=== PATIENT | male | born 1935 | race Caucasian/White ===

== ENCOUNTER → 2016-07-06 | Outpatient (CLI) | payer BC ==
[2016-06-30 13:08] LABS: BLOOD UREA NITROGEN 14 mg/dl (7-18); BUN/CREATININE RATIO 15.1 (10-20); CREATININE 0.96 mg/dl (0.60-1.40)
[~2016-07-06] MED LIST: ADVIN25050 INH; ADVIN50/60 INH; ALBU1AER9 INH; ASCA500 PO; ASPEC325 PO; ASPI81TA28 PO; CHOL1000 PO; CHOL100010 PO; DONE5TAB9 PO; FINA5TAB PO; FINA5TAB4 PO; LANS15CA6 PO; LANS30CA12 PO; LORA-554 PO; METH500T37 PO; MONT1TAB3 PO; MULT-190 PO; MULT-506 PO; MULT-610 PO; NAPR1TAB9 PO; OPTIRAY 320 IV PRN; RANI300T2 PO; SNG10 PO; TAMS0.4C38 PO; TAMS0.4C59 PO; VNTHFA/IN INH
--- NOTE | 2016-07-06 13:29 | DIAGNOSTIC IMAGING REPORT ---
CT UROGRAM CLINICAL HISTORY: Hematuria. COMPARISON STUDY: Abdominal CT dated 03/24/2009. TECHNIQUE: Before and following the IV administration of 119 cc of Optiray 320, CT urogram of the abdomen and pelvis is performed from the lung bases to the proximal femora. Images are reviewed in the axial, sagittal, and coronal planes. IV contrast was administered without complication. CT DOSE: 1654.26 mGycm FINDINGS: Lung bases: The heart is normal in size and without pericardial effusion. There is linear scarring versus atelectasis present at both lung bases. Scattered calcified granulomas are observed. No airspace consolidation or pleural effusion is identified. There is a small to moderate hiatal hernia. Liver: The contrast-enhanced liver is normal in size, contour, and attenuation. There is no intrahepatic biliary ductal dilatation. The hepatic veins and portal veins are patent. Scattered subcentimeter hepatic hypodensities likely represent cysts but are too small for definitive characterization. These are similar to the 2009 examination. Gallbladder: Surgically absent noting clips in the gallbladder fossa. Spleen: Normal in size and attenuation. Pancreas: Unremarkable. Adrenal glands: Unremarkable. Kidneys and ureters: The contrast enhanced kidneys demonstrate mild cortical atrophy and are without hydronephrosis. There are are no renal calculi identified on the unenhanced images. The kidneys enhance and excrete symmetrically. There are 2 cysts identified in the lower pole the right kidney. These measure up to 2.1 cm. Both contain faint internal calcifications. These have been present dating back to 2008. Additional subcentimeter cortical hypodensities are seen in both kidneys. These also likely represent cysts but are too small for definitive characterization. There is no enhancing renal cortical mass lesion identified. There is no evidence of urothelial lesion within the renal pelvis bilaterally or along the course of either ureter. There is a circumaortic left renal vein. Abdominal vasculature: The abdominal aorta is normal in course and caliber noting moderate atherosclerotic calcification. Bowel: The small bowel and colon are normal in course and caliber. There is advanced sigmoid diverticulosis without CT evidence of acute diverticulitis. Moderate colonic fecal retention is observed. The appendix is well-visualized and normal. Peritoneum: There is no intraperitoneal free air or abdominal ascites. Lymphadenopathy: None. Pelvic viscera: The prostate gland is enlarged and heterogeneous, containing coarse calcifications. The prostate gland measures up to 5.8 cm in transverse diameter. There is median lobe hypertrophy. The bladder is normal as visualized. Skeletal structures: The skeletal structures are osteopenic. There is mild lumbosacral spondylosis, greatest at L5-S1. No lytic or blastic lesions are seen. IMPRESSION: 1. No renal calculi are identified. 2. There is no enhancing renal cortical mass. No evidence of urothelial lesion is seen within the renal pelvis bilaterally or lung the course of the ureters. 3. The prostate gland is markedly enlarged and heterogeneous, and demonstrates median lobe hypertrophy. Correlation with serum PSA levels is recommended. 4. The bladder is normal as visualized. 5. Advanced sigmoid diverticulosis without CT evidence of acute diverticulitis. 6. Additional changes as above. Electronically signed by: George Fernandez M.D. 07/06/2016 1:27 PM Dictated Date/Time: 07/06/2016 1:19 PM
== END | disposition home or self-care (01) ==
LOC: C.CTS 12:43
PROVIDERS: ATTEND Nurse Practitioner Adult Health
DX: R31.9 Hematuria, unspecified (principal)

== ENCOUNTER → 2016-11-23 | Outpatient (CLI) | payer BC ==
[~2016-11-23] MED LIST changes: -OPTIRAY 320 IV PRN
[2016-11-23 09:30] LABS: BASO % 0.7 %; BASO ABS # 0.04 K/uL (0-0.2); COMPLETE YES; EOS % 11.4 %; HEMATOCRIT 43.8 % (42-52); IG% 0.2 %; LYMPH % 26.9 %; LYMPH ABS # 1.49 K/uL (1.2-3.4); MEAN CELL VOLUME 88.1 fL (80-100); MEAN CORPUSCULAR HEMOGLOBIN 29.2 pg (25-34); MEAN CORPUSCULAR HGB CONC 33.1 g/dl (32-36); MEAN PLATELET VOLUME 9.9 fL (7.4-10.4); MONO % 7.4 %; NEUT % 53.4 %; PLATELET COUNT 170 K/uL (130-400); RED BLOOD COUNT 4.97 M/uL (4.7-6.1); WHITE BLOOD COUNT 5.53 K/uL (4.8-10.8)
[2016-11-23 09:38] LABS: ALT/SGPT 27 U/L (12-78); BLOOD UREA NITROGEN 22 mg/dl (7-18); BUN/CREATININE RATIO 22.3 (10-20); CARBON DIOXIDE 31 mmol/L (21-32); CHLORIDE 105 mmol/L (98-107); CHOLESTEROL 145 mg/dl (0-200); GLUCOSE 102 mg/dl (70-99); POTASSIUM 4.2 mmol/L (3.5-5.1); SODIUM 141 mmol/L (136-145); TRIGLYCERIDES 47 mg/dl (0-150); VERY LOW DENSITY LIPOPROT CALC 9 mg/dl
[2016-11-23 09:41] LABS: ALKALINE PHOSPHATASE 44 U/L (45-117); AST/SGOT 22 U/L (15-37); CHOLESTEROL/HDL RATIO 2.7; HDL CHOLESTEROL 53 mg/dl; LDL CHOLESTEROL CALCULATED 83 mg/dl
[2016-11-23 09:45] LABS: CALCIUM 8.8 mg/dl (8.5-10.1)
[2016-11-23 09:50] LABS: ESTIMATED AVERAGE GLUCOSE 120 mg/dl; HA1C FLAG Normal (Normal)
--- NOTE | 2016-11-29 10:13 | CODING QUERY MEDICAL NECESSITY ---
SUPPORTING DIAGNOSIS NEEDED Dr. Rinaldi, A supporting diagnosis is required for the test/procedure performed on this patient in order for us to be reimbursed by the patient's insurance. Please provide a supporting diagnosis for the following test/procedure listed below next to the test name along with your signature. *If there is no additional diagnosis for this patient that would support the following test/procedure please document that below next to the test/procedure. Test(s)/Procedure(s) that require a supporting diagnosis: * [id number] GLYCATED HEMOGLOBIN DIAGNOSIS: DATE OF SERVICE: 11/23/16 Provider Signature: Date: Thank you Hardik Campbell [facility] Information Management Once completed, please kindly fax back to [phone] For questions please call [phone]
== END | disposition home or self-care (01) ==
LOC: C.LAB1850 07:30
PROVIDERS: ATTEND Internal Medicine
DX: E55.9 Vitamin D deficiency, unspecified (principal); R31.9 Hematuria, unspecified; R73.03 Prediabetes; Z13.1 Encounter for screening for diabetes mellitus

== ENCOUNTER 2016-12-07 16:47 | Inpatient (IN) | payer BC, OTHER ==
[~2016-12-07] VITALS: Ht 175.3 cm; Wt 83.0 kg
[~2016-12-07 16:47] MED LIST changes: -ADVIN25050 INH; -ALBU1AER9 INH; -ASPEC325 PO; -CHOL100010 PO; -DONE5TAB9 PO; -FINA5TAB PO; -LANS15CA6 PO; -METH500T37 PO; -MULT-506 PO; -SNG10 PO; -TAMS0.4C59 PO
[2016-12-07 18:04] LABS: BASO % 0.3 %; BASO ABS # 0.01 K/uL (0-0.2); COMPLETE YES; EOS % 0.5 %; HEMATOCRIT 37.3 % (42-52); IG% 0.3 %; LYMPH ABS # 0.62 K/uL (1.2-3.4); MEAN CELL VOLUME 85.9 fL (80-100); MEAN CORPUSCULAR HEMOGLOBIN 29.7 pg (25-34); MEAN CORPUSCULAR HGB CONC 34.6 g/dl (32-36); MEAN PLATELET VOLUME 8.7 fL (7.4-10.4); MONO % 5.5 %; NEUT % 76.4 %; PLATELET COUNT 105 K/uL (130-400); RED BLOOD COUNT 4.34 M/uL (4.7-6.1); WHITE BLOOD COUNT 3.65 K/uL (4.8-10.8)
[2016-12-07 18:19] LABS: INR 1.1 (0.9-1.1); PROTHROMBIN TIME (PATIENT) 11.3 SECONDS (9.0-12.0)
[2016-12-07 18:24] LABS: ALT/SGPT 29 U/L (12-78); AST/SGOT 29 U/L (15-37); BLOOD UREA NITROGEN 24 mg/dl (7-18); BUN/CREATININE RATIO 25.5 (10-20); CALCIUM 8.4 mg/dl (8.5-10.1); CARBON DIOXIDE 27 mmol/L (21-32); CHLORIDE 101 mmol/L (98-107); CREATININE 0.93 mg/dl (0.60-1.40); GLUCOSE 112 mg/dl (70-99); POTASSIUM 3.9 mmol/L (3.5-5.1); SODIUM 136 mmol/L (136-145)
[2016-12-07 18:27] LABS: ALB/GLOB RATIO 1.1 (0.9-2); ALKALINE PHOSPHATASE 44 U/L (45-117)
--- NOTE | 2016-12-07 18:42 | DIAGNOSTIC IMAGING REPORT ---
CT HEAD WITHOUT CONTRAST (CT) CLINICAL HISTORY: Acute change in mental status. COMPARISON STUDY: 08/02/2015 TECHNIQUE: Axial CT of the brain is performed from the vertex to the skull base. IV contrast was not administered for this examination. CT DOSE: 537.48 mGy.cm FINDINGS: No intra or extra-axial mass lesions are visualized. There is no CT evidence of acute cortical infarction. There is no evidence of midline shift. There is no acute hemorrhage. No calvarial fractures are visualized. There are patchy white matter hypodensities likely on a small vessel basis. There is no evidence of pathologic ventricular dilatation. There is no evidence of acute sinusitis IMPRESSION: No acute intracranial findings Electronically signed by: Jack Shah M.D. 12/07/2016 6:40 PM Dictated Date/Time: 12/07/2016 6:40 PM
--- NOTE | 2016-12-07 19:58 | EMERGENCY ROOM VISIT NOTE ---
History Report prepared by Leoncio: Carlos A Monique Under the Supervision of: Dr. Brenda Miner D.O. First contact with patient: 17:10 Chief Complaint: WEAKNESS Stated Complaint: WEAK - NOT ABLE TO RELATE - SENT BY DOCTOR Nursing Triage Summary: Pt with . Pt was here on for rectal bleeding, was not anemic told to stop aspirin and sent home. Pt reports bleeding has persisted. Pt was seen by Dr today and physician felt pt was unable to follow conversation and relate his current condition. Sent to ER. Pt is able to answer all orientation questions appropriately at this time. History of Present Illness The patient is a 81 year old male who presents to the Emergency Room with complaints of persistent rectal bleeding beginning last week. He was seen by his PCP today for his symptoms, and was referred to the ED after also being noted to have an altered mental status. Per , the patient "has not been coherent", and has been angering very easily. She states that he has been struggling to find the words that he is trying to say. She states that his symptoms were present yesterday, but much worse today. The patient states "I don 't feel my normal self", and has felt extremely tired. He was seen in the ED last week for rectal bleeding, was found to be anemic and was discharged home. The patient states that his rectal bleeding has been "bright red", with "pieces of tissue". He states that the bleeding covered the entire inside of the toilet bowel. He states that he had an episode with large amount of rectal bleeding yesterday with a large amount of "tissue". The patient states that he noticed that his urine appeared "pink" today. He states that the stool in his bowel movement yesterday appeared dark in color. The patient's notes that the patient had a poly by colonoscopy. He states that the patient has appeared very pale recently. The patient denies any abdominal pain, fevers, headache, chest pain, or chills. He states that he has felt "faint" intermittently for the past few days. He notes that he had similar symptom problems with bleeding occur several months ago with urination. Source of History: patient, spouse/significant other () Onset: Last week Position: other (rectum) Quality: other (bleeding) Timing: other (persistent) Associated Symptoms: + fatigue, No fevers, No chills, No headache, No chest pain, No abdominal pain Note: The patient also complains of an altered mental status. Review of Systems See HPI for pertinent positives & negatives. A total of 10 systems reviewed and were otherwise negative. Past Medical & Surgical Medical Problems: (1) Benign prostate hyperplasia (2) Diverticulosis (3) TIA (transient ischemic attack) Surgical Problems: (1) Hx of cholecystectomy Family History Cancer Heart disease Social History Smoking Status: Never Smoker Marital Status: Housing Status: lives with family Occupation Status: employed Current/Historical Medications Scheduled Ascorbic Acid (Vitamin C), 500 MG PO DAILY Cholecalciferol (Vitamin D3), 1,000 UNITS PO DAILY Finasteride (Proscar), 5 MG PO DAILY Fluticasone Prop/Salmeterol (Advair Diskus 500/50 60 Dose), 1 PUFF INH BID Lansoprazole (Prevacid), 30 MG PO DAILY Loratadine (Allergy Relief), 10 MG PO HS Montelukast Sodium (Singulair), 10 MG PO DAILY Multiple Vitamins W/ Minerals (Centrum Adults), 1 TAB PO DAILY Ocuvite Preservision (Ocuvite Preservision), 2 TAB PO QAM Ranitidine (Zantac), 300 MG PO HS Tamsulosin Hcl (Flomax), 0.4 MG PO DAILY Scheduled PRN Albuterol Hfa (Ventolin Hfa), 2-4 PUFFS INH Q6H PRN for SOB/Wheezing Allergies Coded Allergies: No Known Allergies (Verified , 12/07/16) Physical Exam Vital Signs Date Time Temp Pulse Resp B/P (MAP) Pulse Ox O2 Delivery O2 Flow Rate FiO2 12/07/16 18:39 71 18 127/65 95 Room Air 12/07/16 18:00 75 16 121/66 94 Room Air 12/07/16 17:10 79 12/07/16 17:01 94 Room Air 12/07/16 16:50 37.5 63 16 118/70 98 Room Air Physical Exam GENERAL: alert, well appearing, well nourished, no distress, non-toxic EYE EXAM: normal conjunctiva, PERRL and EOM's grossly intact OROPHARYNX: no exudate, no erythema, lips, buccal mucosa, and tongue normal and mucous membranes are moist NECK: supple, no nuchal rigidity, no adenopathy, non-tender LUNGS: Clear to auscultation. Normal chest wall mechanics HEART: no murmurs, S1 normal and S2 normal ABDOMEN: abdomen soft, non-tender, normo-active bowel sounds, no masses, no rebound or guarding. BACK: Back is symmetrical on inspection and there is no deformity, no midline tenderness, no CVA tenderness. SKIN: no rashes and no bruising UPPER EXTREMITIES: upper extremities are grossly normal. LOWER EXTREMITIES: No pitting edema. NEURO EXAM: Normal sensorium, cranial nerves II-XII grossly intact, normal speech, no gross weakness of arms, no gross weakness of legs. Poor memory. Difficulty finding words. Difficulty answering questions. Medical Decision & Procedures ER Provider Diagnostic Interpretation: CT:Per my review, radiologist interpretation. CT HEAD WITHOUT CONTRAST (CT) FINDINGS: No intra or extra-axial mass lesions are visualized. There is no CT evidence of acute cortical infarction. There is no evidence of midline shift. There is no acute hemorrhage. No calvarial fractures are visualized. There are patchy white matter hypodensities likely on a small vessel basis. There is no evidence of pathologic ventricular dilatation. There is no evidence of acute sinusitis IMPRESSION: No acute intracranial findings Electronically signed by: Jack Shah M.D. Laboratory Results Test 12/07/16 17:50 Peripheral Blood Smear Path Consult Prothrombin Time 11.3 SECONDS (9.0-12.0) Prothromb Time International Ratio 1.1 (0.9-1.1) Estimated Average Glucose 117 mg/dl Hemoglobin A1c 5.7 % (4.5-5.6) Lactic Acid Level 0.8 mmol/L (0.4-2.0) Total Bilirubin 0.8 mg/dl (0.2-1) Aspartate Amino Transf (AST/SGOT) 29 U/L (15-37) Alanine Aminotransferase (ALT/SGPT) 29 U/L (12-78) Alkaline Phosphatase 44 U/L (45-117) Total Protein 6.6 gm/dl (6.4-8.2) Albumin 3.4 gm/dl (3.4-5.0) Globulin 3.2 gm/dl (2.5-4.0) Albumin/Globulin Ratio 1.1 (0.9-2) Lipase 188 U/L (73-393) Laboratory results per my review. ECG Indication: altered mental status Rate (beats per minute): 73 Rhythm: normal sinus Findings: 1st degree AV block, no acute ischemic change, other (Normal axis. Normal intervals. ) ED Course 1711: The patient was evaluated in room C1B. A complete history and physical exam was performed. 1925: I reassessed the patient. He has normal strength in all four extremities. He has no ataxia. No pronator drift. Difficulty on the right with finger to nose noted. 1999: Upon reevaluation, the patient is resting comfortably. I discussed the findings and the treatment plan with the patient. He expresses agreement and understanding. I spoke with Dr. Rob of the [facility] Hospitalist Service. The patient will be evaluated for further management. Medical Decision Differential diagnosis: Etiologies such as metabolic, infection, hypoglycemia, electrolyte abnormalities , cardiac sources, intracerebral event, toxicologic, neurologic, as well as others were entertained. Pt well appearing with stable VS and no acute change in H/H despite recent Gi bleed. and PCP concerned about slightly altered mental status and difficulty with word findings. No focal neuro deficits, mild difficulty with right finger to nose testing. No dysarthria. NIHSS <4 and sx >24 hrs, pt not a tPA candidate. Concern for possible cva/tia given that pt was advised to DC ASA in light of new bleeding. Pt elderly, hx of elevated lipids also - risk factors for CVA. No acute change on CT head. Consults Time Called: 1929 Consulting Physician: Dr. Rob -[facility] Returned Call: 1955 I reviewed the patient's case with Dr. Rob. [facility] will evaluate the patient for further management. Impression Primary Impression: Altered mental status Additional Impressions: Anemia Rectal bleeding Scribe Attestation The scribe's documentation has been prepared under my direction and personally reviewed by me in its entirety. I confirm that the note above accurately reflects all work, treatment, procedures, and medical decision making performed by me. Departure Information Dispostion Being Evaluated By Hospitalist Referrals Gregorio Rinaldi M.D. (PCP) Patient Instructions My [facility] Problem Qualifiers Primary Impression: Altered mental status Altered mental status type: unspecified Qualified Codes: R41.82 - Altered mental status, unspecified Additional Impressions: Anemia Anemia type: unspecified type Qualified Codes: D64.9 - Anemia, unspecified
[2016-12-07] MEDS ORDERED: POLYETHYLENE (MIRALAX) 17 GM PACK PO PRN (21:15)
[2016-12-07] MEDS ORDERED: ACETAMINOPHEN 325 MG TAB PO PRN (21:15)
[2016-12-07] MEDS ORDERED: PHARMACIST DISCHARGE MED REC CONSULT PRN (21:15)
[2016-12-07] MEDS ORDERED: ONDANSETRON INJ 2 MG/ML 2 ML VIAL IV PRN (21:15)
--- NOTE | 2016-12-07 21:58 | History and Physical ---
History & Physical Date & Time of Service: Dec 07, 2016 at 21:58 Chief Complaint: Weak - Not Able To Relate - Sent By Doctor Primary Care Physician: Gregorio Rinaldi M.D. History of Present Illness Source: patient, family 81-year-old male with a past medical history of BPH, diabetic close presented to the ER with complaints of rectal bleeding and " not been coherent". Per patient and his family he was seen in the ER last week for rectal bleeding and he continued to have rectal bleeding yesterday and this morning. He noticed blood in the toilet bowl as well as on the tissue. Denies any rectal pain or abdominal pain, nausea or vomiting, fevers or chills. He complains of feeling very tired and fatigued. He stated that he doesn't feel himself and had noticed that his gait had been more shuffling. His also stated that he has trouble finding words and " has been slow in retrieving information" . She thinks this is unusual for him. Denies any numbness or tingling, motor weakness, blurry vision, slurring of speech. Past Medical/Surgical History Medical Problems: (1) Diverticulosis Status: Chronic Family History Cancer Heart disease Social History Smoking Status: Never Smoker Marital Status: Occupational Status: employed Immunizations History of Influenza Vaccine: No Influenza Vaccine Date: Mar 17, 2009 History of Tetanus Vaccine?: Yes History of Pneumococcal: Yes History of Hepatitis B Vaccine: No Multi-Drug Resistant Organisms History of MDRO: No Allergies Coded Allergies: No Known Allergies (Verified , 12/07/16) Home Medications Scheduled Ascorbic Acid (Vitamin C), 500 MG PO DAILY Cholecalciferol (Vitamin D3), 1,000 UNITS PO DAILY Donepezil HCl (Aricept), 1 TAB PO DAILY Finasteride (Proscar), 5 MG PO DAILY Fluticasone Prop/Salmeterol (Advair Diskus 500/50 60 Dose), 1 PUFF INH BID Lansoprazole (Prevacid), 30 MG PO DAILY Loratadine (Allergy Relief), 10 MG PO HS Montelukast Sodium (Singulair), 10 MG PO DAILY Multiple Vitamins W/ Minerals (Centrum Adults), 1 TAB PO DAILY Ocuvite Preservision (Ocuvite Preservision), 2 TAB PO QAM Ranitidine (Zantac), 300 MG PO HS Tamsulosin Hcl (Flomax), 0.4 MG PO DAILY Scheduled PRN Albuterol Hfa (Ventolin Hfa), 2-4 PUFFS INH Q6H PRN for SOB/Wheezing Review of Systems Constitutional: No fever, No chills Eyes: No worsening of vision ENT: + hearing loss Respiratory: No cough, No sputum, No shortness of breath Cardiovascular: No chest pain Abdomen: No pain, No nausea, No vomiting Musculoskeletal: No joint pain Genitourinary - Male: No hematuria, No dysuria Neurologic: + memory loss, + balance problems (shuffling gait), No paralysis, No numbness/tingling Psychiatric: No depression symptoms Endocrine: No fatigue Hematologic / Lymphatic: No abnormal bleeding/bruising Physical Exam Vital Signs Date Time Temp Pulse Resp B/P (MAP) Pulse Ox O2 Delivery O2 Flow Rate FiO2 12/07/16 21:17 69 18 106/59 96 Room Air 12/07/16 21:15 68 12/07/16 18:39 71 18 127/65 95 Room Air 12/07/16 18:00 75 16 121/66 94 Room Air 12/07/16 17:10 79 12/07/16 17:01 94 Room Air 12/07/16 16:50 37.5 63 16 118/70 98 Room Air General Appearance: WD/WN, no apparent distress Head: normocephalic Eyes: normal inspection ENT: normal ENT inspection, hearing grossly normal Neck: supple Respiratory/Chest: chest non-tender, lungs clear, normal breath sounds, no respiratory distress, no accessory muscle use Cardiovascular: regular rate, rhythm Abdomen/GI: normal bowel sounds, non tender, soft Back: normal inspection Extremities/Musculoskelatal: normal inspection, no pedal edema Neurologic/Psych: alert, normal mood/affect, oriented x 3 Skin: normal color Diagnostics Laboratory Results Results Past 24 Hours Test 12/07/16 17:50 Range/Units White Blood Count 3.65 4.8-10.8 K/uL Red Blood Count 4.34 4.7-6.1 M/uL Hemoglobin 12.9 14.0-18.0 g/dL Hematocrit 37.3 42-52 % Mean Corpuscular Volume 85.9 80-100 fL Mean Corpuscular Hemoglobin 29.7 25-34 pg Mean Corpuscular Hemoglobin Concent 34.6 32-36 g/dl Platelet Count 105 130-400 K/uL Mean Platelet Volume 8.7 7.4-10.4 fL Neutrophils (%) (Auto) 76.4 % Lymphocytes (%) (Auto) 17.0 % Monocytes (%) (Auto) 5.5 % Eosinophils (%) (Auto) 0.5 % Basophils (%) (Auto) 0.3 % Neutrophils # (Auto) 2.79 1.4-6.5 K/uL Lymphocytes # (Auto) 0.62 1.2-3.4 K/uL Monocytes # (Auto) 0.20 0.11-0.59 K/uL Eosinophils # (Auto) 0.02 0-0.5 K/uL Basophils # (Auto) 0.01 0-0.2 K/uL RDW Standard Deviation 42.4 36.4-46.3 fL RDW Coefficient of Variation 13.5 11.5-14.5 % Immature Granulocyte % (Auto) 0.3 % Immature Granulocyte # (Auto) 0.01 0.00-0.02 K/uL Prothrombin Time 11.3 9.0-12.0 SECONDS Prothromb Time International Ratio 1.1 0.9-1.1 Sodium Level 136 136-145 mmol/L Potassium Level 3.9 3.5-5.1 mmol/L Chloride Level 101 98-107 mmol/L Carbon Dioxide Level 27 21-32 mmol/L Anion Gap 8.0 3-11 mmol/L Blood Urea Nitrogen 24 7-18 mg/dl Creatinine 0.93 0.60-1.40 mg/dl Estimated GFR () 87.7 Estimated GFR (Non- 75.7 BUN/Creatinine Ratio 25.5 10-20 Random Glucose 112 70-99 mg/dl Lactic Acid Level 0.8 0.4-2.0 mmol/L Calcium Level 8.4 8.5-10.1 mg/dl Total Bilirubin 0.8 0.2-1 mg/dl Aspartate Amino Transf (AST/SGOT) 29 15-37 U/L Alanine Aminotransferase (ALT/SGPT) 29 12-78 U/L Alkaline Phosphatase 44 45-117 U/L Total Protein 6.6 6.4-8.2 gm/dl Albumin 3.4 3.4-5.0 gm/dl Globulin 3.2 2.5-4.0 gm/dl Albumin/Globulin Ratio 1.1 0.9-2 Lipase 188 73-393 U/L Diagnostic Radiology CT HEAD WITHOUT CONTRAST (CT) CLINICAL HISTORY: Acute change in mental status. COMPARISON STUDY: 08/02/2015 TECHNIQUE: Axial CT of the brain is performed from the vertex to the skull base. IV contrast was not administered for this examination. CT DOSE: 537.48 mGy.cm FINDINGS: No intra or extra-axial mass lesions are visualized. There is no CT evidence of acute cortical infarction. There is no evidence of midline shift. There is no acute hemorrhage. No calvarial fractures are visualized. There are patchy white matter hypodensities likely on a small vessel basis. There is no evidence of pathologic ventricular dilatation. There is no evidence of acute sinusitis IMPRESSION: No acute intracranial findings Electronically signed by: Jack Shah M.D. 12/07/2016 6:40 PM Dictated Date/Time: 12/07/2016 6:40 PM EKG Sinus rhythm with 1st degree A-V block Otherwise normal ECG When compared with ECG of 23-JAN-2010 10:07, HI interval has increased Vent. rate has increased BY 26 BPM Confirmed by JANET OAKLEY ([id number]) on 12/07/2016 7:01:01 PM Impression Assessment and Plan 81-year-old male with a past medical history of BPH, diabetic close presented to the ER with complaints of rectal bleeding and " not been coherent". TIA vs Parkinson's disease vs dementia Head CT: Negative for any acute bleeding - MRI brain, MRA head, MRA neck ordered - Echo ordered - Consult neurology - PT/OT - Speech consult - Aspirin had not been started considering active rectal bleeding Rectal bleeding: Has been going on for about a week - Hemoglobin at 12.9 - Monitor her H&H - Consult GI Thrombocytopenia: - Platelets at 105 - baseline at 150s h/o Asthma: - continue inhalers BPH: - continue home Meds DVT prophylaxis: - SCDs DNR Disposition : admitted to [facility] Level of Care Telemetry Resuscitation Status DO NOT RESUSCITATE VTE Prophylaxis VTE Risk Assessment Done? Y/N: Yes Risk Level: Moderate Given or contraindicated: Unfractionated heparin SQ Resident Tracking Resident Involvement: Resident Care Provided Care Provided: Adult [facility] Medicine Assessment and Plan Attending Addendum: I have physically seen and examined this patient, have directed their medical care, have supervised the medical residents activities, and agree with the H&P as noted above, with the following changes: NONE
[2016-12-07] MEDS: SODIUM CHLORIDE 0.9% 1000ML 1,000 ML IV SCH (22:45)
[2016-12-07 23:00] VITALS: BP 129/63; PULSE 55; TEMP 36.8; O2SAT 97; Ht 175.3 cm; Wt 83.0 kg
[2016-12-07] MEDS ORDERED: ALBUTEROL HFA 8 GM INHALER INH PRN (23:00)
[2016-12-08] VITALS (8 sets, daily range): BP systolic 88–127; BP diastolic 42–71; PULSE 57–76; TEMP 36.3–38.4; O2SAT 94–96
[2016-12-08 03:04] LABS: BASO % 0.3 %; BASO ABS # 0.01 K/uL (0-0.2); COMPLETE YES; EOS % 0.5 %; HEMATOCRIT 36.3 % (42-52); IG% 0.3 %; LYMPH % 15.7 %; LYMPH ABS # 0.59 K/uL (1.2-3.4); MEAN CELL VOLUME 86.6 fL (80-100); MEAN CORPUSCULAR HEMOGLOBIN 29.6 pg (25-34); MEAN CORPUSCULAR HGB CONC 34.2 g/dl (32-36); MEAN PLATELET VOLUME 9.7 fL (7.4-10.4); MONO % 9.6 %; NEUT % 73.6 %; PLATELET COUNT 101 K/uL (130-400); RED BLOOD COUNT 4.19 M/uL (4.7-6.1); WHITE BLOOD COUNT 3.75 K/uL (4.8-10.8)
[2016-12-08 03:20] LABS: BLOOD UREA NITROGEN 24 mg/dl (7-18); BUN/CREATININE RATIO 27.9 (10-20); CALCIUM 7.6 mg/dl (8.5-10.1); CARBON DIOXIDE 28 mmol/L (21-32); CHLORIDE 101 mmol/L (98-107); CREATININE 0.87 mg/dl (0.60-1.40); GLUCOSE 101 mg/dl (70-99); POTASSIUM 3.7 mmol/L (3.5-5.1); SODIUM 135 mmol/L (136-145)
[2016-12-08 03:25] LABS: CHOLESTEROL 113 mg/dl (0-200); CHOLESTEROL/HDL RATIO 2.5; HDL CHOLESTEROL 46 mg/dl; LDL CHOLESTEROL CALCULATED 55 mg/dl; TRIGLYCERIDES 58 mg/dl (0-150); VERY LOW DENSITY LIPOPROT CALC 12 mg/dl
[2016-12-08 07:05] LABS: ESTIMATED AVERAGE GLUCOSE 117 mg/dl; HA1C FLAG Normal (Normal)
--- NOTE | 2016-12-08 07:28 | DIAGNOSTIC IMAGING REPORT ---
MRA OF THE INTRACRANIAL CIRCULATION WITHOUT CONTRAST CLINICAL HISTORY: Weakness. Stroke. COMPARISON STUDY: MRI of the brain August 04, 2015. TECHNIQUE: Utilizing a 1.5 Valery magnet and 3-D [id number] technique, unenhanced MRA of the intracranial circulation was obtained. FINDINGS: The left A1 segment is hypoplastic. There is no abrupt vessel cut off within the intracranial circulation. The posterior circulation is intact. No aneurysm or dissection is identified within the intracranial vessels. There is mild intracranial vascular irregularity. IMPRESSION: Unremarkable MRA of the intracranial circulation. Electronically signed by: Damaso Vences M.D. 12/08/2016 7:27 AM Dictated Date/Time: 12/08/2016 7:24 AM
--- NOTE | 2016-12-08 07:29 | DIAGNOSTIC IMAGING REPORT ---
Brain MRI WITHOUT CONTRAST HISTORY: Headache. Change in mental status. Stroke TECHNIQUE: Multiplanar multisequence MRI of the brain was performed without the use of contrast. COMPARISON STUDY: Head CT 12/07/2016. FINDINGS: There is no mass, hematoma, midline shift, or acute infarct. The paranasal sinuses are clear. The mastoid air cells are clear. The ventricles and sulci demonstrate mild age-related involutional changes. Scattered foci of T2 hyperintensity seen within the periventricular and subcortical white matter are nonspecific but suggestive of mild microvascular ischemic changes. The major vascular flow voids at the skull base are well-maintained. Old lacunar infarct seen within the cait. IMPRESSION: No acute intracranial abnormality. Scattered foci of T2 hyperintensity seen within the periventricular and subcortical white matter are nonspecific but favor microvascular ischemic change. Electronically signed by: Lester Hanks M.D. 12/08/2016 7:28 AM Dictated Date/Time: 12/08/2016 7:23 AM
--- NOTE | 2016-12-08 07:30 | DIAGNOSTIC IMAGING REPORT ---
MRA OF THE NECK WITHOUT CONTRAST CLINICAL HISTORY: Weakness. Stroke. COMPARISON STUDY: None. TECHNIQUE: A 1.5 Valery magnet was utilized. 2-D and 3-D [id number] imaging was performed to obtain unenhanced MRA of the neck. NASCET criteria were utilized to estimate the degree of carotid stenosis. FINDINGS: No significant stenosis is identified within the bilateral common carotid, internal carotid or vertebral arteries although vessel origins are suboptimally assessed on this unenhanced exam. The sensitivity for dissection is diminished on this unenhanced exam but no dissection is identified. IMPRESSION: No significant stenosis within the bilateral common carotid, internal carotid or vertebral arteries although vessel origins are suboptimally assessed on this unenhanced study. Electronically signed by: Damaso Vences M.D. 12/08/2016 7:28 AM Dictated Date/Time: 12/08/2016 7:27 AM
[2016-12-08] MEDS: FLUTICASONE/SALMETEROL (ADVAIR) 500/50 INH 14 PUFF INH SCH ×2 (08:54→21:14)
[2016-12-08] MEDS: SODIUM CHLORIDE 0.9% 1000ML 1,000 ML IV SCH ×2 (08:54→18:22)
[2016-12-08] MEDS: FINASTERIDE 5 MG TAB PO SCH (08:55)
[2016-12-08] MEDS: RANITIDINE HCL 150 MG TAB PO SCH (08:55)
[2016-12-08] MEDS: MONTELUKAST SOD 10 MG TAB PO SCH (08:55)
[2016-12-08] MEDS: ATORVASTATIN 40 MG TAB PO SCH (08:55)
[2016-12-08] MEDS: TAMSULOSIN HCL 0.4 MG CAP PO SCH (08:56)
[2016-12-08] MEDS: LORATADINE 10 MG TAB PO SCH (08:56)
[2016-12-08] MEDS: PANTOprazole SOD 40 MG TAB PO SCH (08:56)
--- NOTE | 2016-12-08 09:43 | Gastrointestinal Consultation ---
Gastrointestinal Consultation Date of Consultation: Dec 08, 2016 Attending Physician: Dr. Potts Consulting Physician: Dr. Klein/JUSTINE Larson Reason for Consultation: Lower GIB History of Present Illness Patient is a 81 year old male with a history of GERD, BPH and constipation admitted last evening with complaints of rectal bleeding and "not being coherent ". The patient states that the rectal bleeding has been ongoing intermittently for approximately one week. The bleeding is described as bright red, filling the toilet bowel mixed with dark blood. He denies any rectal pain or painful bowel movements. He further denies any abdominal pain, nausea or vomiting or melanotic stool. The patient reports having harder stools prior to the onset but states he increased his water consumption to 6-8 glasses per day and stools became more soft. This did not, however, stop the rectal bleeding. He presented to the [facility] one week ago at the onset of bleeding. His H&H was noted to be 14.4/ 37.3. An abdominal series was performed demonstrating "moderate constipation". A rectal exam was performed which "did not show any source of bleeding". There were no visible hemorrhoids or fissures per anoscopy at that time. H&H on admission was noted to drop to 12.9 and 37.3 with slight hemoglobin drop again to 12.4 this morning. No bleeding or any bowel movements over night. He was seen by Neurology this morning. No acute neurological issues. Last colonoscopy was performed in 2013. A non-adenomatous polyp was removed at that time. Risk factors: diverticulosis and aspirin use. Family history is negative for colorectal cancer. Past Medical/Surgical History Medical Problems: (1) Altered mental status Status: Acute (2) Altered mental status Status: Acute (3) Fever Status: Acute (4) Lower GI bleeding Status: Acute Past Medical History: 1. 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 Asthma 4. BPH 5. Diverticulitis 6. Hearing loss 7. Infectious discitis 8. Vitamin D deficiency Past Surgical History: 1. Cataract surgery 2. Cholecystectomy 3. Foot surgery 4. Prostate biopsy 5. Complete colonoscopy Family History Cancer Heart disease see HPI Social History Smoking Status: Never Smoker Alcohol Use: occasionally Marital Status: Housing Status: lives with family Occupation Status: employed Allergies Coded Allergies: No Known Allergies (Verified , 12/07/16) Current Medications Home Meds and Scripts Medications Dose Route/Sig Max Daily Dose Days Date Category Flomax (Tamsulosin Hcl) 0.4 Mg Cap 0.4 Mg PO DAILY 12/01/16 Reported Allergy Relief (Loratadine) 10 Mg Tab 10 Mg PO HS 12/01/16 Reported Zantac (Ranitidine HCl) 300 Mg Tab 300 Mg PO HS 12/01/16 Reported Advair Diskus 500/50 60 Dose (Fluticasone Prop/Salmeterol) 1 Ea Aerp 1 Puff INH BID 12/01/16 Reported Ventolin Hfa (Albuterol) 200 Puffs/34072 Mcg Aers 2-4 Puffs INH Q6H PRN 12/01/16 Reported Centrum Adults (Multiple Vitamins W/ Minerals) 1 Tab Tab 1 Tab PO DAILY 12/01/16 Reported Prevacid (Lansoprazole) 30 Mg Capcr 30 Mg PO DAILY 12/01/16 Reported Singulair (Montelukast Sodium) 10 Mg Tab 10 Mg PO DAILY 12/01/16 Reported Proscar (Finasteride) 5 Mg Tab 5 Mg PO DAILY 12/01/16 Reported Vitamin D3 (Cholecalciferol) 1,000 Unit Tab 1,000 Units PO DAILY 12/01/16 Reported Vitamin C (Ascorbic Acid) 500 Mg Tab 500 Mg PO DAILY 12/01/16 Reported Review of Systems Constitutional: + fatigue, No fever, No chills Eyes: No problem reported ENT: + hearing loss Respiratory: No problem reported Cardiac: No problem reported Abdomen: + see HPI Musculoskeletal: No joint pain, No muscle pain Male : No problem reported Neuro: No numbness/tingling, No balance problems Psych: No problem reported Skin: No problem reported Physical Exam Date Time Temp Pulse Resp B/P (MAP) Pulse Ox O2 Delivery O2 Flow Rate FiO2 12/08/16 07:55 37.5 70 16 88/42 (57) 96 Room Air 121/66 (84) 12/08/16 04:00 Room Air 12/08/16 02:54 38.4 74 16 118/57 (77) 94 Room Air 12/07/16 23:59 Room Air 12/07/16 23:00 36.8 55 18 129/63 97 Room Air 12/07/16 21:17 69 18 106/59 96 Room Air 12/07/16 21:15 68 12/07/16 18:39 71 18 127/65 95 Room Air 12/07/16 18:00 75 16 121/66 94 Room Air 12/07/16 17:10 79 12/07/16 17:01 94 Room Air 12/07/16 16:50 37.5 63 16 118/70 98 Room Air General Appearance: no apparent distress Eyes: EOMI ENT: + pertinent finding (hard of hearing) Neck: supple Respiratory/Chest: lungs clear, normal breath sounds, no respiratory distress Cardiovascular: regular rate, rhythm, no gallop, no murmur Abdomen: normal bowel sounds, non tender, soft Extremities: no pedal edema Neurologic/Psych: alert, normal mood/affect, oriented x 3 Skin: warm/dry Laboratory Results Last 24 Hours Test 12/07/16 17:50 12/08/16 02:50 White Blood Count 3.65 K/uL 3.75 K/uL Red Blood Count 4.34 M/uL 4.19 M/uL Hemoglobin 12.9 g/dL 12.4 g/dL Hematocrit 37.3 % 36.3 % Mean Corpuscular Volume 85.9 fL 86.6 fL Mean Corpuscular Hemoglobin 29.7 pg 29.6 pg Mean Corpuscular Hemoglobin Concent 34.6 g/dl 34.2 g/dl Platelet Count 105 K/uL 101 K/uL Mean Platelet Volume 8.7 fL 9.7 fL Neutrophils (%) (Auto) 76.4 % 73.6 % Lymphocytes (%) (Auto) 17.0 % 15.7 % Monocytes (%) (Auto) 5.5 % 9.6 % Eosinophils (%) (Auto) 0.5 % 0.5 % Basophils (%) (Auto) 0.3 % 0.3 % Neutrophils # (Auto) 2.79 K/uL 2.76 K/uL Lymphocytes # (Auto) 0.62 K/uL 0.59 K/uL Monocytes # (Auto) 0.20 K/uL 0.36 K/uL Eosinophils # (Auto) 0.02 K/uL 0.02 K/uL Basophils # (Auto) 0.01 K/uL 0.01 K/uL RDW Standard Deviation 42.4 fL 43.2 fL RDW Coefficient of Variation 13.5 % 13.6 % Immature Granulocyte % (Auto) 0.3 % 0.3 % Immature Granulocyte # (Auto) 0.01 K/uL 0.01 K/uL Prothrombin Time 11.3 SECONDS Prothromb Time International Ratio 1.1 Sodium Level 136 mmol/L 135 mmol/L Potassium Level 3.9 mmol/L 3.7 mmol/L Chloride Level 101 mmol/L 101 mmol/L Carbon Dioxide Level 27 mmol/L 28 mmol/L Anion Gap 8.0 mmol/L 6.0 mmol/L Blood Urea Nitrogen 24 mg/dl 24 mg/dl Creatinine 0.93 mg/dl 0.87 mg/dl Estimated GFR () 87.7 92.5 Estimated GFR (Non- 75.7 79.8 BUN/Creatinine Ratio 25.5 27.9 Random Glucose 112 mg/dl 101 mg/dl Estimated Average Glucose 117 mg/dl Hemoglobin A1c 5.7 % Lactic Acid Level 0.8 mmol/L Calcium Level 8.4 mg/dl 7.6 mg/dl Total Bilirubin 0.8 mg/dl Aspartate Amino Transf (AST/SGOT) 29 U/L Alanine Aminotransferase (ALT/SGPT) 29 U/L Alkaline Phosphatase 44 U/L Total Protein 6.6 gm/dl Albumin 3.4 gm/dl Globulin 3.2 gm/dl Albumin/Globulin Ratio 1.1 Lipase 188 U/L Est Creatinine Clear Calc Drug Dose 64.4 ml/min Troponin I < 0.015 ng/ml Triglycerides Level 58 mg/dl Cholesterol Level 113 mg/dl HDL Cholesterol 46 mg/dl LDL Cholesterol, Calculated 55 mg/dl VLDL Cholesterol, Calculated 12 mg/dl Cholesterol/HDL Ratio 2.5 Thyroid Stimulating Hormone (TSH) 1.030 uIu/ml Impression Patient is a 81 year old male with bright red rectal bleeding and acute blood loss anemia. Diff dx: hemorrhoid/fissure (related to known constipation) vs diverticular vs AVM vs PUD vs malignancy vs other. Plan 1. Clear liquid diet today. 2. GoLytely bowel prep this evening. 3. NPO after midnight except for medications. 4. Colonoscopy by Dr. Klein tomorrow for further evaluation of bleeding. 5. Supportive care per primary team. Thank you for allowing us to participate in the care of this pleasant patient. If you have any questions or concerns, please do not hesitate to contact us. Agree with JUSTINE Larson as above Abd: Soft, NT, ND, +BS Colonoscopy on 12/09/2016
--- NOTE | 2016-12-08 11:21 | Neurology Consultation ---
Neurology Consultation Date of Consultation: Dec 08, 2016. Attending Physician: Tushar Pan D.O. Primary Care Physician: Gregorio Rinaldi M.D. Reason for Consultation: Possible TIA versus Parkinson's disease versus dementia History of Present Illness Source: patient, hospital records The patient is an 81-year-old male with a chief complaint of confusion occurring in the context of anemia and rectal bleeding. This patient's altered mental status began perhaps 2 days ago and has been characterized by difficulty with word finding, apparent confusion, and some mood irritability described as tendency to anger. The patient does admit that he has been having some difficulty with short-term memory for quite some time. He also complains of some problems with gait which he describes as shuffling. The patient is a retired computer information science professor. He appears to be an appropriate historian but does tend to ramble a bit. He described the origin of the specific names for each month of the year during our casual conversation. Overall his thoughts were coherent and goal-directed. His attention span seemed to be normal. He was very pleasant and smiled appropriately. He denies tremor or motor restlessness. He denies hallucinations. Past Medical/Surgical History Medical Problems: (1) Altered mental status Status: Acute (2) Altered mental status Status: Acute (3) Fever Status: Acute (4) Lower GI bleeding Status: Acute Family History Noncontributory given patient's advanced age Social History Marital Status: Housing Status: lives with family Occupation Status: employed Allergies Coded Allergies: No Known Allergies (Verified , 12/07/16) Current Inpatient Medications Current Inpatient Medications Medications (Trade) Dose Ordered Sig/Hakan Route Start Time Stop Time Status Last Admin Dose Admin Atorvastatin Calcium (Lipitor Tab) 40 mg QAM PO 12/08/16 09:00 01/07/17 08:59 12/08/16 08:55 40 MG Miscellaneous Information (Pharmacist Discharge Med Rec Consult) 1 ea UD PRN N/A 12/07/16 21:15 01/06/17 21:14 Sodium Chloride 1,000 ml @ 100 mls/hr Q10H IV 12/07/16 22:45 01/06/17 22:44 12/08/16 08:54 100 MLS/HR Acetaminophen (Tylenol Tab) 650 mg Q4H PRN PO 12/07/16 21:15 01/06/17 21:14 Ondansetron HCl (Zofran Inj) 4 mg Q6H PRN IV 12/07/16 21:15 01/06/17 21:14 Polyethylene (Miralax Powder Packet) 17 gm DAILY PRN PO 12/07/16 21:15 01/06/17 21:14 Albuterol (Ventolin Hfa Inhaler) 2 puffs Q6H PRN INH 12/07/16 23:00 01/06/17 22:59 Finasteride (Proscar Tab) 5 mg DAILY PO 12/08/16 09:00 01/07/17 08:59 12/08/16 08:55 5 MG Salmeterol Xinafoate/ Fluticasone (Advair Diskus 500/50 Inh) 1 puff BID INH 12/08/16 09:00 01/07/17 08:59 12/08/16 08:54 1 PUFF Montelukast Sodium (Singulair Tab) 10 mg DAILY PO 12/08/16 09:00 01/07/17 08:59 12/08/16 08:55 10 MG Tamsulosin HCl (Flomax Cap) 0.4 mg DAILY PO 12/08/16 09:00 01/07/17 08:59 12/08/16 08:56 0.4 MG Pantoprazole Sodium (Protonix Tab) 40 mg QAM PO 12/08/16 09:00 01/07/17 08:59 12/08/16 08:56 40 MG Loratadine (Claritin Tab) 10 mg HS PO 12/08/16 21:00 01/07/17 20:59 12/08/16 08:56 10 MG Ranitidine HCl (zANTac TAB) 300 mg HS PO 12/08/16 21:00 01/07/17 20:59 12/08/16 08:55 300 MG Polyethylene Glycol/ Electrolytes (Golytely Soln) 8 dose TODAY@0300,1800 PO 12/08/16 18:00 12/09/16 03:01 Review of Systems A full 10 point review of systems was obtained from this patient with pertinent positives and negatives described in the history of present illness. Recent issue with maroon-colored blood per rectum described by patient. All other systems reviewed and are negative. Physical Exam Vital Signs (Past 24 Hrs): Date Time Temp Pulse Resp B/P (MAP) Pulse Ox O2 Delivery O2 Flow Rate FiO2 12/08/16 08:00 96 Room Air 12/08/16 07:55 37.5 70 16 88/42 (57) 96 Room Air 121/66 (84) 12/08/16 04:00 Room Air 12/08/16 02:54 38.4 74 16 118/57 (77) 94 Room Air 12/07/16 23:59 Room Air 12/07/16 23:00 36.8 55 18 129/63 97 Room Air 12/07/16 21:17 69 18 106/59 96 Room Air 12/07/16 21:15 68 12/07/16 18:39 71 18 127/65 95 Room Air 12/07/16 18:00 75 16 121/66 94 Room Air 12/07/16 17:10 79 12/07/16 17:01 94 Room Air 12/07/16 16:50 37.5 63 16 118/70 98 Room Air The patient is a well-developed, well-nourished, elderly male. He is pleasant and cooperative, no acute distress. Attention and concentration normal. Mild impairment of short-term memory noted, 1 out of 3 recall. Patient exhibits a normal spontaneous fluent speech pattern. He is able to name objects and repeat phrases. He reads text without difficulty. Vocabulary and fund of knowledge normal. Visual luu full to confrontation. Visual acuity normal. Pupils equal round reactive to light and accommodation. Eye movements normal. Facial sensation intact. Facial strength intact. Palate elevates to midline. Tongue protrudes to midline. Shoulder shrug intact. Hearing intact. There is diminished sensation to vibration at the ankles. Light touch, temperature, proprioception intact. There is no dysmetria with finger to nose or heel to damon bilaterally. Deep tendon reflexes are normoactive and symmetric with the arms and legs although diminished at the Achilles tendons bilaterally. Plantar responses downgoing bilaterally. Ophthalmoscopic examination reveals normal- appearing optic nerves and posterior segments, no papilledema or hemorrhages. Carotid pulses normal to auscultation bilaterally, no bruits. There is normal strength and tone for all 4 limbs proximally and distally. No atrophy. No abnormal movements observed. Stance is somewhat wide-based. Gait otherwise appears normal. Laboratory Results Past 24 Hours: 12/08/16 02:50 Red Blood Count 4.19, Mean Corpuscular Volume 86.6, Mean Corpuscular Hemoglobin 29.6, Mean Corpuscular Hemoglobin Concent 34.2, Mean Platelet Volume 9.7, Neutrophils (%) (Auto) 73.6, Lymphocytes (%) (Auto) 15.7, Monocytes (%) (Auto) 9.6, Eosinophils (%) (Auto) 0.5, Basophils (%) (Auto) 0.3, Neutrophils # (Auto) 2.76, Lymphocytes # (Auto) 0.59, Monocytes # (Auto) 0.36, Eosinophils # (Auto) 0.02, Basophils # (Auto) 0.01 12/08/16 02:50 Test 12/07/16 17:50 12/08/16 02:50 Prothrombin Time 11.3 SECONDS (9.0-12.0) Prothromb Time International Ratio 1.1 (0.9-1.1) Estimated Average Glucose 117 mg/dl Hemoglobin A1c 5.7 % (4.5-5.6) Lactic Acid Level 0.8 mmol/L (0.4-2.0) Total Bilirubin 0.8 mg/dl (0.2-1) Aspartate Amino Transf (AST/SGOT) 29 U/L (15-37) Alanine Aminotransferase (ALT/SGPT) 29 U/L (12-78) Alkaline Phosphatase 44 U/L (45-117) Total Protein 6.6 gm/dl (6.4-8.2) Albumin 3.4 gm/dl (3.4-5.0) Globulin 3.2 gm/dl (2.5-4.0) Albumin/Globulin Ratio 1.1 (0.9-2) Lipase 188 U/L (73-393) White Blood Count 3.75 K/uL (4.8-10.8) Red Blood Count 4.19 M/uL (4.7-6.1) Hemoglobin 12.4 g/dL (14.0-18.0) Hematocrit 36.3 % (42-52) Mean Corpuscular Volume 86.6 fL (80-100) Mean Corpuscular Hemoglobin 29.6 pg (25-34) Mean Corpuscular Hemoglobin Concent 34.2 g/dl (32-36) Platelet Count 101 K/uL (130-400) Mean Platelet Volume 9.7 fL (7.4-10.4) Neutrophils (%) (Auto) 73.6 % Lymphocytes (%) (Auto) 15.7 % Monocytes (%) (Auto) 9.6 % Eosinophils (%) (Auto) 0.5 % Basophils (%) (Auto) 0.3 % Neutrophils # (Auto) 2.76 K/uL (1.4-6.5) Lymphocytes # (Auto) 0.59 K/uL (1.2-3.4) Monocytes # (Auto) 0.36 K/uL (0.11-0.59) Eosinophils # (Auto) 0.02 K/uL (0-0.5) Basophils # (Auto) 0.01 K/uL (0-0.2) RDW Standard Deviation 43.2 fL (36.4-46.3) RDW Coefficient of Variation 13.6 % (11.5-14.5) Immature Granulocyte % (Auto) 0.3 % Immature Granulocyte # (Auto) 0.01 K/uL (0.00-0.02) Anion Gap 6.0 mmol/L (3-11) Est Creatinine Clear Calc Drug Dose 64.4 ml/min Estimated GFR () 92.5 Estimated GFR (Non- 79.8 BUN/Creatinine Ratio 27.9 (10-20) Calcium Level 7.6 mg/dl (8.5-10.1) Troponin I < 0.015 ng/ml (0-0.045) Triglycerides Level 58 mg/dl (0-150) Cholesterol Level 113 mg/dl (0-200) HDL Cholesterol 46 mg/dl LDL Cholesterol, Calculated 55 mg/dl VLDL Cholesterol, Calculated 12 mg/dl Cholesterol/HDL Ratio 2.5 Thyroid Stimulating Hormone (TSH) 1.030 uIu/ml (0.300-4.500) Imaging I reviewed the images and radiologist's interpretation of the recently completed brain MRI. There is evidence of age-related, chronic, microvascular ischemic change. The imaging is not suggestive of normal pressure hydrocephalus. There is no evidence of acute or subacute stroke. There is mild to moderate generalized cortical atrophy. Impression This patient's clinical presentation is not highly suggestive of stroke or TIA. He probably has an element of chronic mild vascular dementia which may have been aggravated in the context of recent GI bleeding and anemia. His examination is not suggestive of Parkinson's disease or normal pressure hydrocephalus. His gait does not appear to be magnetic or shuffling at this time. He does have a moderate distal sensory loss to vibration and may have a mild sensory ataxia due to peripheral neuropathy. His gait function could also be negatively affected by moderate cerebrovascular disease. Plan I do not really have any further specific immediate recommendations for additional neurological evaluation and treatment. However, further outpatient follow-up for this patient's mild cognitive dysfunction would be reasonable. He could potentially benefit from a trial of a cholinesterase inhibitor. Please contact me if I may be of further assistance.
--- NOTE | 2016-12-08 11:40 | Medical Student: [facility] ---
Consultation Date of Consultation: Dec 08, 2016. Attending Physician: Cristhian Dejesus MD Reason for Consultation: altered mental status History of Present Illness Mr. Brooke is an 81-year-old male who presented to the emergency room after a week of rectal bleeding. Blood was found in his bowel movement, in the toilet water, and on the tissue after wiping since early last week and per his PCP, he arrived yesterday evening with his . He was also noted to have altered mental status. His notes that he has had some cognitive decline for the past 3-4 years, but says that she has noticed increased episodes of "befuddlement" this month, including forgetfulness when starting conversation, expressing more anger than usual when using a computer, and increasing confusion. Past Medical/Surgical History Medical History: Patient's medical history is significant for BPH. Surgical History: Positive for a cholecystectomy. 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 Allergies Coded Allergies: No Known Allergies (Verified , 12/07/16) Medications Current Inpatient Medications Medications (Trade) Dose Ordered Sig/Hakan Route Start Time Stop Time Status Last Admin Dose Admin Atorvastatin Calcium (Lipitor Tab) 40 mg QAM PO 12/08/16 09:00 01/07/17 08:59 12/08/16 08:55 40 MG Miscellaneous Information (Pharmacist Discharge Med Rec Consult) 1 ea UD PRN N/A 12/07/16 21:15 01/06/17 21:14 Sodium Chloride 1,000 ml @ 100 mls/hr Q10H IV 12/07/16 22:45 01/06/17 22:44 12/08/16 08:54 100 MLS/HR Acetaminophen (Tylenol Tab) 650 mg Q4H PRN PO 12/07/16 21:15 01/06/17 21:14 Ondansetron HCl (Zofran Inj) 4 mg Q6H PRN IV 12/07/16 21:15 01/06/17 21:14 Polyethylene (Miralax Powder Packet) 17 gm DAILY PRN PO 12/07/16 21:15 01/06/17 21:14 Albuterol (Ventolin Hfa Inhaler) 2 puffs Q6H PRN INH 12/07/16 23:00 01/06/17 22:59 Finasteride (Proscar Tab) 5 mg DAILY PO 12/08/16 09:00 01/07/17 08:59 12/08/16 08:55 5 MG Salmeterol Xinafoate/ Fluticasone (Advair Diskus 500/50 Inh) 1 puff BID INH 12/08/16 09:00 01/07/17 08:59 12/08/16 08:54 1 PUFF Montelukast Sodium (Singulair Tab) 10 mg DAILY PO 12/08/16 09:00 01/07/17 08:59 12/08/16 08:55 10 MG Tamsulosin HCl (Flomax Cap) 0.4 mg DAILY PO 12/08/16 09:00 01/07/17 08:59 12/08/16 08:56 0.4 MG Pantoprazole Sodium (Protonix Tab) 40 mg QAM PO 12/08/16 09:00 01/07/17 08:59 12/08/16 08:56 40 MG Loratadine (Claritin Tab) 10 mg HS PO 12/08/16 21:00 01/07/17 20:59 12/08/16 08:56 10 MG Ranitidine HCl (zANTac TAB) 300 mg HS PO 12/08/16 21:00 01/07/17 20:59 12/08/16 08:55 300 MG Polyethylene Glycol/ Electrolytes (Golytely Soln) 8 dose TODAY@0300,1800 PO 12/08/16 18:00 12/09/16 03:01 Physical Exam Date Time Temp Pulse Resp B/P (MAP) Pulse Ox O2 Delivery O2 Flow Rate FiO2 12/08/16 08:00 96 Room Air 12/08/16 07:55 37.5 70 16 88/42 (57) 96 Room Air 121/66 (84) 12/08/16 04:00 Room Air 12/08/16 02:54 38.4 74 16 118/57 (77) 94 Room Air 12/07/16 23:59 Room Air 12/07/16 23:00 36.8 55 18 129/63 97 Room Air 12/07/16 21:17 69 18 106/59 96 Room Air 12/07/16 21:15 68 12/07/16 18:39 71 18 127/65 95 Room Air 12/07/16 18:00 75 16 121/66 94 Room Air 12/07/16 17:10 79 12/07/16 17:01 94 Room Air 12/07/16 16:50 37.5 63 16 118/70 98 Room Air Eyes: bilateral eyes normal inspection, bilateral eyes PERRL, bilateral eyes EOMI Mr. Brooke was awake and alert. He was pleasant to talk to and we chatted about etymology. He had a tendency to ramble but his reported during our conversation that he has always been "long-winded." Mood and affect seem appropriate, although at home, his has recently noticed increased intermittent episodes of anger. Fund of knowledge is intact. Grooming and hygiene are appropriate. Speech is absent of any aphasia or dysarthria and is fluent, spontaneous, and has normal rate and rhythm. When told to repeat three given words and recall them a few minutes later, he could only remember one out of three words. Attention appeared to be normal based on his ability to recite the months of the year forwards and backwards and spell WORLD backwards. However , he made 1-2 mistakes counting backwards serially from 100 by seven. CN II - visual luu intact. Pupils were equally round and reactive to light. A direct & consensual response was elicited bilaterally. CN III, IV, - extraocular movements are full and intact. Accommodation appeared normal. CN V - slightly decreased sensation on the right side in the V1 distribution. Otherwise sensation was normal. CN VII - normal facial symmetry and strength bilaterally. CN VIII - finger rub heard bilaterally. Mr. Brooke was wearing his hearing aids in both ears. CN IX, X - palate elevated bilaterally. CN XI - 5/5 shoulder shrug strength against resistance. CN XII - midline tongue. 5/5 strength with lateral movement against resistance. Motor strength was normal bilaterally in the upper extremity, with 5/5 strength demonstrated in the deltoids, biceps, triceps, wrist extensors & flexors, and intrinsic hand muscles. Lower extremity strength was 5/5 bilaterally in the hip flexors, gastrocnemius, and tibialis anterior. Bulk and tone were normal. No rigidity was present. 2/4 reflexes were elicited in the right & left biceps, brachioradialis, and triceps. In the lower extremity, reflexes were 2/4 in the right knee and ankle and 0/4 in the left knee and ankle. On sensory exam, sensation of light touch was diminished in the right forearm as compared to the left forearm but otherwise noted elsewhere bilaterally. Vibration sense is diminished distally on the left side (could not detect vibrating tuning fork on distal joint of left great toe) but was otherwise normal in all four extremities. No dysmetria or ataxia noted during [id number] testing. Gait was slow but otherwise normal without any shuffling or magnetic quality. Laboratory Results Last 24 Hours Test 12/07/16 17:50 12/08/16 02:50 12/08/16 11:09 White Blood Count 3.65 K/uL 3.75 K/uL Red Blood Count 4.34 M/uL 4.19 M/uL Hemoglobin 12.9 g/dL 12.4 g/dL Hematocrit 37.3 % 36.3 % Mean Corpuscular Volume 85.9 fL 86.6 fL Mean Corpuscular Hemoglobin 29.7 pg 29.6 pg Mean Corpuscular Hemoglobin Concent 34.6 g/dl 34.2 g/dl Platelet Count 105 K/uL 101 K/uL Mean Platelet Volume 8.7 fL 9.7 fL Neutrophils (%) (Auto) 76.4 % 73.6 % Lymphocytes (%) (Auto) 17.0 % 15.7 % Monocytes (%) (Auto) 5.5 % 9.6 % Eosinophils (%) (Auto) 0.5 % 0.5 % Basophils (%) (Auto) 0.3 % 0.3 % Neutrophils # (Auto) 2.79 K/uL 2.76 K/uL Lymphocytes # (Auto) 0.62 K/uL 0.59 K/uL Monocytes # (Auto) 0.20 K/uL 0.36 K/uL Eosinophils # (Auto) 0.02 K/uL 0.02 K/uL Basophils # (Auto) 0.01 K/uL 0.01 K/uL RDW Standard Deviation 42.4 fL 43.2 fL RDW Coefficient of Variation 13.5 % 13.6 % Immature Granulocyte % (Auto) 0.3 % 0.3 % Immature Granulocyte # (Auto) 0.01 K/uL 0.01 K/uL Prothrombin Time 11.3 SECONDS Prothromb Time International Ratio 1.1 Sodium Level 136 mmol/L 135 mmol/L Potassium Level 3.9 mmol/L 3.7 mmol/L Chloride Level 101 mmol/L 101 mmol/L Carbon Dioxide Level 27 mmol/L 28 mmol/L Anion Gap 8.0 mmol/L 6.0 mmol/L Blood Urea Nitrogen 24 mg/dl 24 mg/dl Creatinine 0.93 mg/dl 0.87 mg/dl Estimated GFR () 87.7 92.5 Estimated GFR (Non- 75.7 79.8 BUN/Creatinine Ratio 25.5 27.9 Random Glucose 112 mg/dl 101 mg/dl Estimated Average Glucose 117 mg/dl Hemoglobin A1c 5.7 % Lactic Acid Level 0.8 mmol/L Calcium Level 8.4 mg/dl 7.6 mg/dl Total Bilirubin 0.8 mg/dl Aspartate Amino Transf (AST/SGOT) 29 U/L Alanine Aminotransferase (ALT/SGPT) 29 U/L Alkaline Phosphatase 44 U/L Total Protein 6.6 gm/dl Albumin 3.4 gm/dl Globulin 3.2 gm/dl Albumin/Globulin Ratio 1.1 Lipase 188 U/L Est Creatinine Clear Calc Drug Dose 64.4 ml/min Troponin I < 0.015 ng/ml Triglycerides Level 58 mg/dl Cholesterol Level 113 mg/dl HDL Cholesterol 46 mg/dl LDL Cholesterol, Calculated 55 mg/dl VLDL Cholesterol, Calculated 12 mg/dl Cholesterol/HDL Ratio 2.5 Thyroid Stimulating Hormone (TSH) 1.030 uIu/ml Assessment & Plan Problem List: Altered mental status Rectal bleeding Assessment 1) Episode of acute confusion/altered mental status related to GI bleed. While a TIA is possible, given absence of findings on MRI, no other focal neurologic deficits are observed, nor were any observed or reported during episodes of altered mental status. Other diagnoses to explain confusion could include complex partial seizure and a Wernicke's aphasia, but neither are likely in this patient specifically since no pertinent deficits were observed for either. Patient appears to be mostly at baseline. 2) Mild vascular dementia. Slight cognitive decline was noted on exam with short-term recall. Patient has insight into this decline, noting that his thinking is more slowed and cognizant his memory is decreased. Additionally, chronic microvascular changes were observed on MRI. Plan 1) Follow up in the outpatient setting for vascular dementia. Could be a candidate for pharmacologic therapy such as an acetylcholinesterase inhibitor or an NMDA receptor antagonist.
--- NOTE | 2016-12-08 12:23 | Progress Note ---
Subjective Date of Service: Dec 08, 2016. Subjective Pt evaluation today including: conversation w/ patient, conversation w/ family (), physical exam, chart review, lab review, review of studies, review of inpatient medication list Pt sitting up in chair Denies any distress states transient confusion at time still but improved No headaches No fevers or chills or worsening rectal bleeding No acute events overnight Problem List Medical Problems: (1) Altered mental status Status: Acute (2) Altered mental status Status: Acute (3) Fever Status: Acute (4) Lower GI bleeding Status: Acute Review of Systems Constitutional: No fever, No chills, No weight loss, No weakness ENT: No hearing loss, No unusual epistaxis, No nasal symptoms, No sore throat Respiratory: No cough, No sputum, No wheezing, No shortness of breath, No dyspnea on exertion Cardiac: No chest pain, No orthopnea, No PND, No edema Abdomen: No pain, No nausea, No vomiting, No constipation Musculoskeletal: No joint pain, No muscle pain Male : No dysuria, No urinary frequency, No incontinence, No hematuria Neurologic: + memory loss, No paralysis, No weakness, No balance problems Psychiatric: No depression symptoms, No anhedonism, No anxiety, No insomnia Endo: No fatigue, No excessive thirst Skin: No rash, No itch Objective Vital Signs Date Time Temp Pulse Resp B/P (MAP) Pulse Ox O2 Delivery O2 Flow Rate FiO2 12/08/16 08:00 96 Room Air 12/08/16 07:55 37.5 70 16 88/42 (57) 96 Room Air 121/66 (84) 12/08/16 04:00 Room Air 12/08/16 02:54 38.4 74 16 118/57 (77) 94 Room Air 12/07/16 23:59 Room Air 12/07/16 23:00 36.8 55 18 129/63 97 Room Air 12/07/16 21:17 69 18 106/59 96 Room Air 12/07/16 21:15 68 12/07/16 18:39 71 18 127/65 95 Room Air 12/07/16 18:00 75 16 121/66 94 Room Air 12/07/16 17:10 79 12/07/16 17:01 94 Room Air 12/07/16 16:50 37.5 63 16 118/70 98 Room Air Physical Exam General Appearance: WD/WN, no apparent distress Eyes: normal inspection, PERRL, EOMI, sclerae normal Neck: supple, no adenopathy, thyroid normal, no JVD Respiratory/Chest: chest non-tender, lungs clear, normal breath sounds, no respiratory distress Cardiovascular: regular rate, rhythm, no edema, no gallop, no JVD Abdomen: normal bowel sounds, non tender, soft, no organomegaly Extremities: normal range of motion, non-tender, normal inspection, no pedal edema Neurologic/Psychiatric: no motor/sensory deficits, alert, normal mood/affect, oriented x 3 Laboratory Results Last 24 Hours Test 12/07/16 17:50 12/08/16 02:50 12/08/16 11:09 White Blood Count 3.65 K/uL 3.75 K/uL Red Blood Count 4.34 M/uL 4.19 M/uL Hemoglobin 12.9 g/dL 12.4 g/dL Hematocrit 37.3 % 36.3 % Mean Corpuscular Volume 85.9 fL 86.6 fL Mean Corpuscular Hemoglobin 29.7 pg 29.6 pg Mean Corpuscular Hemoglobin Concent 34.6 g/dl 34.2 g/dl Platelet Count 105 K/uL 101 K/uL Mean Platelet Volume 8.7 fL 9.7 fL Neutrophils (%) (Auto) 76.4 % 73.6 % Lymphocytes (%) (Auto) 17.0 % 15.7 % Monocytes (%) (Auto) 5.5 % 9.6 % Eosinophils (%) (Auto) 0.5 % 0.5 % Basophils (%) (Auto) 0.3 % 0.3 % Neutrophils # (Auto) 2.79 K/uL 2.76 K/uL Lymphocytes # (Auto) 0.62 K/uL 0.59 K/uL Monocytes # (Auto) 0.20 K/uL 0.36 K/uL Eosinophils # (Auto) 0.02 K/uL 0.02 K/uL Basophils # (Auto) 0.01 K/uL 0.01 K/uL RDW Standard Deviation 42.4 fL 43.2 fL RDW Coefficient of Variation 13.5 % 13.6 % Immature Granulocyte % (Auto) 0.3 % 0.3 % Immature Granulocyte # (Auto) 0.01 K/uL 0.01 K/uL Prothrombin Time 11.3 SECONDS Prothromb Time International Ratio 1.1 Sodium Level 136 mmol/L 135 mmol/L Potassium Level 3.9 mmol/L 3.7 mmol/L Chloride Level 101 mmol/L 101 mmol/L Carbon Dioxide Level 27 mmol/L 28 mmol/L Anion Gap 8.0 mmol/L 6.0 mmol/L Blood Urea Nitrogen 24 mg/dl 24 mg/dl Creatinine 0.93 mg/dl 0.87 mg/dl Estimated GFR () 87.7 92.5 Estimated GFR (Non- 75.7 79.8 BUN/Creatinine Ratio 25.5 27.9 Random Glucose 112 mg/dl 101 mg/dl Estimated Average Glucose 117 mg/dl Hemoglobin A1c 5.7 % Lactic Acid Level 0.8 mmol/L Calcium Level 8.4 mg/dl 7.6 mg/dl Total Bilirubin 0.8 mg/dl Aspartate Amino Transf (AST/SGOT) 29 U/L Alanine Aminotransferase (ALT/SGPT) 29 U/L Alkaline Phosphatase 44 U/L Total Protein 6.6 gm/dl Albumin 3.4 gm/dl Globulin 3.2 gm/dl Albumin/Globulin Ratio 1.1 Lipase 188 U/L Est Creatinine Clear Calc Drug Dose 64.4 ml/min Troponin I < 0.015 ng/ml Triglycerides Level 58 mg/dl Cholesterol Level 113 mg/dl HDL Cholesterol 46 mg/dl LDL Cholesterol, Calculated 55 mg/dl VLDL Cholesterol, Calculated 12 mg/dl Cholesterol/HDL Ratio 2.5 Thyroid Stimulating Hormone (TSH) 1.030 uIu/ml Assessment and Plan 81 yo male presents to the ER with complaints of rectal bleeding and increasing forgetfulness for past 10 days Confusion likely related to mild dementia. No source of infections and sign or symptoms of parkinsons dementia. CT head/MRI/MRA head and neck unremarkable. Gait intact and no weakness noted. Likely anemia from rectal bleeding exacerbating dementia. Neurology consulted and recs appreciated. Will also start on 5 mg PO qhs Acute blood loss anemia likely related to rectal bleeding, GI consulted, Hg stable at this time. Will undergo golytely and plan for colonoscopy in AM. Cont to hold ASA Thrombocytopenia 101, chronic, baseline is around 150 H/o Asthma, continue advair, singulair and albuterol, stable at this time BPH, cont flomax and proscar DVT prophylaxis with SCDs only due to rectal bleeding and anemia DNR code status
[2016-12-08 12:55] LABS: URINE APPEARANCE CLEAR (CLEAR); URINE BILIRUBIN NEG (NEG); URINE COLOR DK YELLOW; URINE NITRITE NEG (NEG); URINE PH 5.5 (4.5-7.5); UROBILINOGEN NEG (NEG)
[2016-12-08 12:56] LABS: MANUAL MICROSCOPIC REQUIRED? NO; REVIEW REQ? NO
--- NOTE | 2016-12-08 13:09 | Clinical Documentation Query ---
CLINICAL DOCUMENTATION QUERY Dr. FELDER, In your clinical opinion is this patient being managed for: (X ) Acute blood loss anemia ( ) Other explanation of clinical findings (Please Explain) ( ) Unable to determine (Please Define) ( ) Need to Discuss ( ) Not Agree The medical record reflects the following clinical findings, treatment, and risk factors. Clinical Indicators: 81 yo male presenting with persistent rectal bleeding. Initial Hgb 12.9, Hct 37.3 compared to 1 week earlier results of 14.4/42.4. Treatment: GI consult with plan for colonoscopy, hold ASA, serial CBC's, IV fluids Risk Factors:age, ongoing rectal bleeding Please clarify and document your clinical opinion in the progress notes and discharge summary. Terms such as "probable", "suspected", "likely", "questionable", "possible", or "still to be ruled out" are acceptable. IF IN AGREEMENT, YOU MUST DOCUMENT ABOVE DIAGNOSTIC STATEMENT IN DAILY PROGRESS NOTES AND DISCHARGE SUMMARY. This document is not part of the patient's record. Thank You, Crystal Medina, RN [phone]
--- NOTE | 2016-12-08 16:46 | ECHOCARDIOGRAM REPORT ---
*NOTICE TO RECEIVING [employer] This information is strictly Confidential and protected under [place] law. [place] law prohibits you from making any further disclosure of this information unless further disclosure is expressly permitted by the written consent of the person to whom it pertains or is authorized by law. A general authorization for the release of medical or other information is not sufficient for this purpose. Hospital accepts no responsibility if the information is made available to any other person, INCLUDING THE PATIENT. Interpretation Summary * Name: MALLORIE JAVED JR Study Date: 12/08/2016 06:26 AM BP: 118/57 mmHg * Patient Location: 42 HR: 68 * : 1935 (M/d/yyyy) Gender: Male Height: 69 in * Age: 81 yrs Ethnicity: [place] Weight: 178 lb * Ordering Physician: PAM HIGGINS DO * Performed By: Raquel Sexton RCS * * Reason For Study: TIA * BSA: 2.0 m2 * -- Conclusions -- * 1. Normal left ventricular size and systolic function. EF 60-65%. No regional wall motion abnormalities. Mild concentric left ventricular hypertrophy. Type I diastolic dysfunction. * 2. 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 Consider PFO. * 3. No significant valvular abnormalities. * 4. Normal estimated right ventricular systolic pressure, assuming right atrial pressure of 3 mmHg. (RVSP 31 mmHg). * 5. No prior study available for comparison. Procedure Details * A complete two-dimensional transthoracic echocardiogram was performed (2D, M-mode, Doppler and color flow Doppler). * A saline contrast injection was performed to assess for cardiac shunting. * The injection was performed through an intravenous line in the right arm. * The attending nurse who injected the saline contrast was KATARINA STOVALL RN. * A total of 30 cc of agitated saline was given. Left Ventricle * Normal left ventricular size and systolic function. EF 60-65%. No regional wall motion abnormalities. Mild concentric left ventricular hypertrophy. Type I diastolic dysfunction. Right Ventricle * The right ventricle is normal in size and function. * The right ventricular systolic function is normal as assessed by tricuspid annular plane systolic excursion (TAPSE) (normal >1.5 cm). Atria * The left atrial size is normal. * Right atrial size is normal. * No obvious ASD visualized. 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 Mitral Valve * The mitral valve is grossly normal. * There is no mitral valve stenosis. * There is trace mitral regurgitation. Tricuspid Valve * The tricuspid valve is not well visualized, but is grossly normal. * There is no tricuspid stenosis. * There is trace tricuspid regurgitation. Aortic Valve * The aortic valve is not well visualized. * No hemodynamically significant valvular aortic stenosis. * No aortic regurgitation is present. Pulmonic Valve * The pulmonary valve is inadequately visualized, but the Doppler data is adequate for interpretation. * There is no pulmonic valvular stenosis. * There is no significant pulmonary regurgitation. Great Vessels * The aortic root is normal size. * Aortic arch of normal dimension. Pericardium/Pleural * There is no pericardial effusion. Great Vessels * Normal inferior vena cava size and collapsability with sniff indicates a normal right atrial pressure of 3 mmHg Left Ventricular Diastolic Function * Grade I diastolic dysfunction, (abnormal relaxation pattern). MMode 2D Measurements and Calculations IVSd 1.3 cm IVSs 1.5 cm LVIDd 4.3 cm LVIDs 2.7 cm LVPWd 1.3 cm LVPWs 1.3 cm IVS/LVPW 1.0 FS 36.9 % EDV(Teich) 82.6 ml ESV(Teich) 27.1 ml EF(Teich) 67.1 % EDV(cubed) 78.9 ml ESV(cubed) 19.8 ml EF(cubed) 74.9 % % IVS thick 14.3 % % LVPW thick 6.8 % LV mass(C)d 200.7 grams LV mass(C)dI 102.1 grams/m\S\2 LV mass(C)s 124.2 grams LV mass(C)sI 63.2 grams/m\S\2 SV(Teich) 55.4 ml SI(Teich) 28.2 ml/m\S\2 SV(cubed) 59.1 ml SI(cubed) 30.1 ml/m\S\2 Ao root diam 3.8 cm Ao root area 11.3 cm\S\2 LA dimension 4.3 cm LA/Ao 1.1 LVOT diam 2.1 cm LVOT area 3.6 cm\S\2 LVAd ap4 33.0 cm\S\2 LVLd ap4 7.4 cm EDV(MOD-sp4) 114.3 ml EDV(sp4-el) 124.8 ml LVAs ap4 19.4 cm\S\2 LVLs ap4 6.2 cm ESV(MOD-sp4) 51.7 ml ESV(sp4-el) 51.1 ml EF(MOD-sp4) 54.7 % EF(sp4-el) 59.0 % LVAd ap2 27.4 cm\S\2 LVLd ap2 7.1 cm EDV(MOD-sp2) 88.5 ml EDV(sp2-el) 90.2 ml LVAs ap2 15.1 cm\S\2 LVLs ap2 5.5 cm ESV(MOD-sp2) 33.6 ml ESV(sp2-el) 35.3 ml EF(MOD-sp2) 62.0 % EF(sp2-el) 60.8 % LVLd %diff -5.06 % EDV(MOD-bp) 103.9 ml LVLs %diff -13.76 % ESV(MOD-bp) 44.1 ml EF(MOD-bp) 57.6 % SV(MOD-sp4) 62.5 ml SI(MOD-sp4) 31.8 ml/m\S\2 SV(MOD-sp2) 54.9 ml SI(MOD-sp2) 27.9 ml/m\S\2 SV(MOD-bp) 59.8 ml SI(MOD-bp) 30.4 ml/m\S\2 SV(sp4-el) 73.6 ml SI(sp4-el) 37.5 ml/m\S\2 SV(sp2-el) 54.8 ml SI(sp2-el) 27.9 ml/m\S\2 Doppler Measurements and Calculations MV E max agustin 71.2 cm/sec MV A max agustin 83.6 cm/sec MV E/A 0.85 MV P1/2t max agustin 75.1 cm/sec MV P1/2t 73.3 msec MVA(P1/2t) 3.0 cm\S\2 MV dec slope 300.0 cm/sec\S\2 MV dec time 0.21 sec Ao V2 max 115.4 cm/sec Ao max PG 5.3 mmHg Ao max PG (full) 2.3 mmHg HENRY(V,A) 2.7 cm\S\2 HENRY(V,D) 2.7 cm\S\2 LV V1 max PG 3.0 mmHg LV V1 max 86.3 cm/sec TR max agustin 265.4 cm/sec
[2016-12-08] MEDS: LAVAGE SOLUTION 4000ML PO SCH (18:21)
[2016-12-09] VITALS (8 sets, daily range): BP systolic 93–121; BP diastolic 53–73; PULSE 60–71; TEMP 36.7–38.3; O2SAT 93–98
[2016-12-09] MEDS: LAVAGE SOLUTION 4000ML PO SCH (03:12)
[2016-12-09] MEDS: SODIUM CHLORIDE 0.9% 1000ML 1,000 ML IV SCH ×2 (05:05→13:29)
[2016-12-09 06:38] LABS: HEMATOCRIT 33.6 % (42-52); MEAN CELL VOLUME 85.5 fL (80-100); MEAN CORPUSCULAR HGB CONC 33.9 g/dl (32-36); RED BLOOD COUNT 3.93 M/uL (4.7-6.1); WHITE BLOOD COUNT 3.09 K/uL (4.8-10.8)
[2016-12-09 07:13] LABS: BASO % 0.6 %; BASO ABS # 0.02 K/uL (0-0.2); COMPLETE YES; EOS % 1.9 %; IG% 0.3 %; LYMPH % 28.2 %; LYMPH ABS # 0.87 K/uL (1.2-3.4); MEAN PLATELET VOLUME 9.8 fL (7.4-10.4); MONO % 9.1 %; NEUT % 59.9 %; PLATELET COUNT 87 K/uL (130-400); PLT ESTIMATE DECREASED
[2016-12-09 07:18] LABS: BUN/CREATININE RATIO 21.6 (10-20); CALCIUM 7.2 mg/dl (8.5-10.1); CREATININE 0.89 mg/dl (0.60-1.40)
[2016-12-09] MEDS: FLUTICASONE/SALMETEROL (ADVAIR) 500/50 INH 14 PUFF INH SCH ×2 (08:16→19:48)
[2016-12-09] MEDS: PANTOprazole SOD 40 MG TAB PO SCH (08:17)
[2016-12-09] MEDS: TAMSULOSIN HCL 0.4 MG CAP PO SCH (08:17)
[2016-12-09] MEDS: FINASTERIDE 5 MG TAB PO SCH (08:17)
[2016-12-09] MEDS: ATORVASTATIN 40 MG TAB PO SCH (08:18)
[2016-12-09] MEDS: MONTELUKAST SOD 10 MG TAB PO SCH (08:18)
--- NOTE | 2016-12-09 09:57 | Anesthesiology Progress Note ---
Anesthesia Post Op Note Date & Time Dec 09, 2016 at 09:57 Vital Signs Pain Intensity: 0.0 Vital Signs Past 12 Hours Date Time Temp Pulse Resp B/P (MAP) Pulse Ox O2 Delivery O2 Flow Rate FiO2 12/09/16 07:11 37.2 66 16 121/73 (89) 95 Room Air 12/09/16 04:00 Room Air 12/09/16 03:47 36.8 67 19 117/60 (79) 93 Room Air 12/08/16 23:59 Room Air 12/08/16 23:15 37.2 76 18 104/50 (68) 95 Room Air Notes Mental Status: alert / awake / arousable, participated in evaluation Pt Amnestic to Procedure: Yes Nausea / Vomiting: adequately controlled Pain: adequately controlled Airway Patency, RR, SpO2: stable & adequate BP & HR: stable & adequate Hydration State: stable & adequate Anesthetic Complications: no major complications apparent
--- NOTE | 2016-12-09 14:13 | Progress Note ---
Subjective Date of Service: Dec 09, 2016. Subjective Pt evaluation today including: conversation w/ patient, conversation w/ family , physical exam, chart review, lab review, review of studies, review of inpatient medication list Pt resting comfortably in chair Denies any worsening confusion, headaches, rectal bleeding at bedside Was not able to complete bowel prep Problem List Medical Problems: (1) Altered mental status Status: Acute (2) Altered mental status Status: Acute (3) Fever Status: Acute (4) Lower GI bleeding Status: Acute Review of Systems Constitutional: No fever, No chills, No sweats, No weight loss, No weakness Eyes: No worsening of vision, No eye pain, No redness, No discharge ENT: No hearing loss, No unusual epistaxis, No nasal symptoms, No sore throat Respiratory: No cough, No sputum, No wheezing, No shortness of breath Cardiac: No chest pain, No orthopnea, No PND, No edema Abdomen: No pain, No nausea, No vomiting, No constipation Musculoskeletal: No joint pain, No muscle pain, No swelling, No calf pain Male : No dysuria, No urinary frequency, No incontinence, No slowing stream Neurologic: + memory loss, No paralysis, No weakness, No numbness/tingling Psychiatric: No depression symptoms, No anhedonism, No anxiety, No insomnia Endo: No fatigue, No excessive thirst Skin: No rash, No itch Objective Vital Signs Date Time Temp Pulse Resp B/P (MAP) Pulse Ox O2 Delivery O2 Flow Rate FiO2 12/09/16 12:00 96 Room Air 12/09/16 11:17 36.9 71 16 93/53 (66) 96 12/09/16 08:00 95 Room Air 12/09/16 07:11 37.2 66 16 121/73 (89) 95 Room Air 12/09/16 04:00 Room Air 12/09/16 03:47 36.8 67 19 117/60 (79) 93 Room Air 12/08/16 23:59 Room Air 12/08/16 23:15 37.2 76 18 104/50 (68) 95 Room Air 12/08/16 20:12 36.3 57 18 108/55 (72) 95 Room Air 12/08/16 20:00 Room Air 12/08/16 16:00 Room Air 12/08/16 15:27 37.4 62 16 103/58 (73) 96 Room Air Physical Exam General Appearance: WD/WN, no apparent distress Eyes: normal inspection, PERRL, EOMI, sclerae normal Neck: supple, no adenopathy, thyroid normal, no JVD Respiratory/Chest: chest non-tender, lungs clear, normal breath sounds, no respiratory distress Cardiovascular: regular rate, rhythm, no edema, no gallop, no JVD Abdomen: normal bowel sounds, non tender, soft, no organomegaly Extremities: normal range of motion, non-tender, normal inspection, no pedal edema Neurologic/Psychiatric: 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, no motor/sensory deficits, alert, normal mood/affect Skin: normal color, warm/dry, no rash Lymphatic: no adenopathy Laboratory Results Last 24 Hours Test 12/09/16 06:10 White Blood Count 3.09 K/uL Red Blood Count 3.93 M/uL Hemoglobin 11.4 g/dL Hematocrit 33.6 % Mean Corpuscular Volume 85.5 fL Mean Corpuscular Hemoglobin 29.0 pg Mean Corpuscular Hemoglobin Concent 33.9 g/dl Platelet Count 87 K/uL Mean Platelet Volume 9.8 fL Neutrophils (%) (Auto) 59.9 % Lymphocytes (%) (Auto) 28.2 % Monocytes (%) (Auto) 9.1 % Eosinophils (%) (Auto) 1.9 % Basophils (%) (Auto) 0.6 % Neutrophils # (Auto) 1.85 K/uL Lymphocytes # (Auto) 0.87 K/uL Monocytes # (Auto) 0.28 K/uL Eosinophils # (Auto) 0.06 K/uL Basophils # (Auto) 0.02 K/uL RDW Standard Deviation 42.2 fL RDW Coefficient of Variation 13.4 % Immature Granulocyte % (Auto) 0.3 % Immature Granulocyte # (Auto) 0.01 K/uL Platelet Estimate DECREASED Red Blood Cell Morphology Unremarkable Sodium Level 136 mmol/L Potassium Level 4.0 mmol/L Chloride Level 102 mmol/L Carbon Dioxide Level 27 mmol/L Anion Gap 7.0 mmol/L Blood Urea Nitrogen 19 mg/dl Creatinine 0.89 mg/dl Est Creatinine Clear Calc Drug Dose 62.9 ml/min Estimated GFR () 91.6 Estimated GFR (Non- 79.1 BUN/Creatinine Ratio 21.6 Random Glucose 93 mg/dl Calcium Level 7.2 mg/dl Assessment and Plan 81 yo male presents to the ER with complaints of rectal bleeding and increasing forgetfulness for past 10 days Confusion likely related to mild dementia. Improving per reports. No source of infections and sign or symptoms of parkinsons dementia. CT head/MRI/MRA head and neck unremarkable. Gait intact and no weakness noted. Likely anemia from rectal bleeding exacerbating dementia, which is slightly worsening today. Neurology consulted and recs appreciated. Will also start on aricept 5 mg PO qhs Acute blood loss anemia likely related to rectal bleeding, GI consulted, Hg dropfrom 12.9 to 11.4 in 2 days. Pt denies any further rectal bleeding. Cont to hold ASA. Pt not able to complete bowel prep, will plan for colonoscopy in AM. Thrombocytopenia 87, chronic, baseline is around 150 H/o Asthma, continue advair, singulair and albuterol, stable at this time BPH, cont flomax and proscar DVT prophylaxis with SCDs only due to rectal bleeding and anemia DNR code status
[2016-12-09] MEDS: RANITIDINE HCL 150 MG TAB PO SCH (19:48)
[2016-12-09] MEDS: LORATADINE 10 MG TAB PO SCH (19:48)
[2016-12-10] MEDS: SODIUM CHLORIDE 0.9% 1000ML 1,000 ML IV SCH ×2 (02:13→12:53)
[2016-12-10 03:16] VITALS: BP 117/60; PULSE 85; TEMP 36.3; O2SAT 97
[2016-12-10 06:07] LABS: HEMATOCRIT 31.9 % (42-52); MEAN CELL VOLUME 85.3 fL (80-100); MEAN CORPUSCULAR HEMOGLOBIN 29.7 pg (25-34); MEAN CORPUSCULAR HGB CONC 34.8 g/dl (32-36); RED BLOOD COUNT 3.74 M/uL (4.7-6.1); WHITE BLOOD COUNT 2.62 K/uL (4.8-10.8)
[2016-12-10 06:10] LABS: MEAN PLATELET VOLUME 9.5 fL (7.4-10.4); PLATELET COUNT 75 K/uL (130-400)
[2016-12-10 06:40] LABS: BASO % 0.4 %; BASO ABS # 0.01 K/uL (0-0.2); COMPLETE YES; EOS % 1.9 %; IG% 0.4 %; LYMPH ABS # 0.68 K/uL (1.2-3.4); MONO % 11.5 %; NEUT % 59.8 %
[2016-12-10 06:47] LABS: BUN/CREATININE RATIO 17.5 (10-20); CALCIUM 7.2 mg/dl (8.5-10.1); CREATININE 0.8 mg/dl (0.60-1.40); POTASSIUM 3.4 mmol/L (3.5-5.1)
[2016-12-10 07:52] VITALS: BP 100/57; PULSE 63; TEMP 37.2; O2SAT 100
[2016-12-10 08:00] VITALS: O2SAT 100
[2016-12-10] MEDS: ATORVASTATIN 40 MG TAB PO SCH (08:43)
[2016-12-10] MEDS: TAMSULOSIN HCL 0.4 MG CAP PO SCH (08:43)
[2016-12-10] MEDS: FINASTERIDE 5 MG TAB PO SCH (08:43)
[2016-12-10] MEDS: MONTELUKAST SOD 10 MG TAB PO SCH (08:43)
[2016-12-10] MEDS: FLUTICASONE/SALMETEROL (ADVAIR) 500/50 INH 14 PUFF INH SCH (08:43)
[2016-12-10] MEDS: PANTOprazole SOD 40 MG TAB PO SCH (08:43)
[2016-12-10 11:30] VITALS: BP 94/49; PULSE 62; TEMP 37.3; O2SAT 97
[2016-12-10 12:00] VITALS: O2SAT 97
[2016-12-10 12:43] LABS: HEMATOCRIT 33.6 % (42-52)
[2016-12-10] MEDS ORDERED: DONE5TAB9 PO (13:25)
--- NOTE | 2016-12-10 13:29 | Discharge Instructions ---
Discharge Instructions Date of Service Dec 10, 2016. Admission Reason for Admission: Tia (Transient Ischemic Attack) Discharge Discharge Diagnosis / Problem: Rectal bleeding, mild dementia Discharge Goals Goal(s): Decrease discomfort, Improve function, Increase independence, Improve disease control, Diagnostic testing, Therapeutic intervention, Prevent Disease Progression Activity Recommendations Activity Limitations: resume your previous activity Exercise/Sports Limitations: none Patient to be discharged home Please resume all home medications Prescription sent to pharmacy for aricept 5 mg tablet once a day for mild dementia Colonoscopy will be set up as an outpatient with Dr Klein as hemoglobin is stable If worsening rectal bleeding please report to ER Please follow up with Dr Rinaldi in 1-2 weeks Current Hospital Diet Patient's current hospital diet: Regular Diet Discharge Diet Recommended Diet: Regular Diet Pending Studies Studies pending at discharge: no Laboratory Results Hemoglobin A1c Test 12/07/16 17:50 Range/Units Estimated Average Glucose 117 mg/dl Hemoglobin A1c 5.7 H 4.5-5.6 % Lipid Panel Test 12/08/16 02:50 Range/Units Triglycerides Level 58 0-150 mg/dl Cholesterol Level 113 0-200 mg/dl HDL Cholesterol 46 mg/dl Cholesterol/HDL Ratio 2.5 LDL Cholesterol, Calculated 55 mg/dl Medical Emergencies . Who to Call and When: Medical Emergencies: If at any time you feel your situation is an emergency, please call 911 immediately. . Non-Emergent Contact Non-Emergency issues call your: Primary Care Provider Call Non-Emergent contact if: you have a fever . . "Provider Documentation" section prepared by Tushar Pan. . VTE Core Measure Inpt VTE Proph given/why not?: Contraindicated
--- NOTE | 2016-12-10 14:03 | Discharge Summary ---
Discharge Summary Date of Service Dec 10, 2016. Discharge Summary Admission Date: Dec 07, 2016 at 21:14 Discharge Date: Dec 10, 2016 Discharge Disposition: Home Principal Diagnosis: Rectal bleeding, mild dementia Immunizations: Have You Had Influenza Vaccine: No Influenza Vaccine Date: Mar 17, 2009 History of Tetanus Vaccine?: Yes History of Pneumococcal: Yes History of Hepatitis B Vaccine: No Consultations: GI Medication Reconciliation New Medications: Donepezil HCl (Aricept) 5 Mg Tab 1 TAB PO DAILY for 30 Days, #30 TAB 0 Refills Continued Medications: Albuterol Hfa (Ventolin Hfa) 200 Puffs/98892 Mcg Aers 2-4 PUFFS INH Q6H PRN for SOB/Wheezing Ascorbic Acid (Vitamin C) 500 Mg Tab 500 MG PO DAILY Cholecalciferol (Vitamin D3) 1,000 Unit Tab 1000 UNITS PO DAILY Finasteride (Proscar) 5 Mg Tab 5 MG PO DAILY Fluticasone Prop/Salmeterol (Advair Diskus 500/50 60 Dose) 1 Ea Aerp 1 PUFF INH BID Lansoprazole (Prevacid) 30 Mg Capcr 30 MG PO DAILY Loratadine (Allergy Relief) 10 Mg Tab 10 MG PO HS Montelukast Sodium (Singulair) 10 Mg Tab 10 MG PO DAILY Multiple Vitamins W/ Minerals (Centrum Adults) 1 Tab Tab 1 TAB PO DAILY Ocuvite Preservision (Ocuvite Preservision) 1 Tab Tab 2 TAB PO QAM Ranitidine (Zantac) 300 Mg Tab 300 MG PO HS Tamsulosin Hcl (Flomax) 0.4 Mg Cap 0.4 MG PO DAILY Discharge Exam Review of Systems: Constitutional: No fever, No chills, No sweats, No weight loss, No weakness Eyes: No worsening of vision, No eye pain, No redness, No discharge ENT: No hearing loss, No unusual epistaxis, No nasal symptoms, No sore throat, No tinnitus, No trouble swallowing Respiratory: No cough, No sputum, No wheezing, No shortness of breath, No hemoptysis Cardiovascular: No chest pain, No orthopnea, No PND, No edema, No claudication Abdomen: No pain, No nausea, No vomiting, No diarrhea, No constipation, No GI bleeding Musculoskeletal: No joint pain, No muscle pain, No swelling, No calf pain Genitourinary - Male: No hematuria, No dysuria, No urinary frequency, No urinary urgency Neurologic: + memory loss, No paralysis, No weakness, No numbness/tingling, No vertigo Psychiatric: No depression symptoms, No anhedonism, No anxiety, No insomnia Endocrine: No fatigue, No excessive thirst Integumentary: No rash, No itch Physical Exam: General Appearance: WD/WN, no apparent distress Eyes: normal inspection, PERRL, EOMI, sclerae normal ENT: normal ENT inspection, hearing grossly normal, TMs normal, pharynx normal Neck: supple, no adenopathy, thyroid normal, no JVD Respiratory/Chest: chest non-tender, lungs clear, normal breath sounds, no respiratory distress Cardiovascular: regular rate, rhythm, no edema, no gallop, no JVD Abdomen / GI: normal bowel sounds, non tender, soft, no organomegaly Extremities: normal inspection, no calf tenderness, normal capillary refill , no pedal edema Neurologic/Psychiatric: alert, normal mood/affect, normal reflexes, oriented x 3 Hospital Course 81 yo male presents to the ER with complaints of rectal bleeding and increasing forgetfulness for past 10 days Confusion likely related to mild dementia. Improving per reports. No source of infections and sign or symptoms of parkinsons dementia. CT head/MRI/MRA head and neck unremarkable. Gait intact and no weakness noted. Likely anemia from rectal bleeding exacerbating dementia, Hg stabilized over hospital course with Hg on admission 12.9 and on discharge 11.7. Pt also reported no further bleeding. Neurology consulted and recs appreciated. For mild dementia will cont on aricept 5 mg PO daily on discharge. Acute blood loss anemia likely related to rectal bleeding, GI consulted, Hg dropfrom 12.9 to 11.7 in 3 days. Pt denies any further rectal bleeding. Pt not able to complete bowel prep, will plan for colonoscopy as outpatient with Dr Klein. Thrombocytopenia chronic, baseline is around 150 H/o Asthma, continue advair, singulair and albuterol, stable at this time BPH, cont flomax and proscar DVT prophylaxis with SCDs only due to rectal bleeding and anemia DNR code status Total Time Spent: Greater than 30 minutes This includes examination of the patient, discharge planning, medication reconciliation, and communication with other providers. Discharge Instructions Please refer to the electronic Patient Visit Report (Discharge Instructions) for additional information. Additional Copies To Gregorio Rinaldi M.D.
[2016-12-10 15:32] VITALS: BP 94/49; PULSE 62; TEMP 37.3; O2SAT 97
--- NOTE | 2016-12-10 16:08 | PROGRESS NOTE ---
DATE: 12/10/2016 RACE: . HISTORY OF PRESENT ILLNESS: I had the pleasure of seeing Mark Brooke at his bedside today. He was scheduled to have a colonoscopy yesterday; however, he did not complete a bowel prep. Today his nursing team called and states that he still could not complete his bowel prep. He was also not having any overt GI bleeding and his H&H had actually risen from his prior evaluation and decision was made to cancel the colonoscopy. The patient was in agreement with this. He states that he would follow up with his primary care doctor, Dr. Rinaldi as an outpatient and follow up with our office as needed as needed. It should be noted that he did have a colonoscopy as recently as 03/25/2014 which showed a small cecal polyp which was removed with cold forceps, left-sided diverticulosis and external hemorrhoids. The pathology from the polyp showed a benign colonic mucosa without pathologic change and therefore due to the patient's age, a screening colonoscopy would not be recommended. However, if the patient continues to have symptomatic anemia or GI blood loss, that would be considered a diagnostic colonoscopy and this can be performed as an outpatient. Once again, thanks for allowing me to participate in the care of this patient. If you have any further questions, please do not hesitate in contacting me.
== END 2016-12-10 16:10 | disposition home health service (06) | DRG 378 ==
LOC: C.EDB 16:48 → C.2T 21:14 → ENRESERV 21:37
PROVIDERS: ADMIT Family Medicine; ATTEND Hospitalist
DX: K62.5 Hemorrhage of anus and rectum (principal); D62 Acute posthemorrhagic anemia; E11.9 Type 2 diabetes mellitus without complications; K57.90 Diverticulosis of intestine, part unspecified, without perforation or abscess without bleeding; D69.6 Thrombocytopenia, unspecified; J45.909 Unspecified asthma, uncomplicated; E55.9 Vitamin D deficiency, unspecified; F01.50 Vascular dementia, unspecified severity, without behavioral disturbance, psychotic disturbance, mood disturbance, and anxiety; Z66 Do not resuscitate; Z86.73 Personal history of transient ischemic attack (TIA), and cerebral infarction without residual deficits; Z79.82 Long term (current) use of aspirin; Z53.8 Procedure and treatment not carried out for other reasons

== ENCOUNTER → 2016-12-14 | Outpatient (CLI) | payer BC, OTHER ==
[~2016-12-14] MED LIST changes: -ASPI81TA28 PO; +DONE5TAB9 PO; -NAPR1TAB9 PO
[2016-12-14 16:18] LABS: HEMATOCRIT 31.2 % (42-52)
== END | disposition home or self-care (01) ==
LOC: C.LAB1850 15:15
PROVIDERS: ATTEND Registered Nurse
DX: D62 Acute posthemorrhagic anemia (principal)

== ENCOUNTER → 2017-05-13 | Outpatient (CLI) | payer BC ==
[2017-05-13 09:37] LABS: HEMATOCRIT 41.7 % (42-52); MEAN CELL VOLUME 88.2 fL (80-100); MEAN CORPUSCULAR HEMOGLOBIN 30.2 pg (25-34); MEAN CORPUSCULAR HGB CONC 34.3 g/dl (32-36); MEAN PLATELET VOLUME 9.8 fL (7.4-10.4); PLATELET COUNT 141 K/uL (130-400); RED BLOOD COUNT 4.73 M/uL (4.7-6.1); WHITE BLOOD COUNT 4.95 K/uL (4.8-10.8)
[2017-05-13 09:51] LABS: BLOOD UREA NITROGEN 18 mg/dl (7-18); CALCIUM 8.7 mg/dl (8.5-10.1); CARBON DIOXIDE 30 mmol/L (21-32); CHLORIDE 104 mmol/L (98-107); GLUCOSE 111 mg/dl (70-99); SODIUM 139 mmol/L (136-145)
[2017-05-13 09:57] LABS: ESTIMATED AVERAGE GLUCOSE 123 mg/dl; HA1C FLAG Normal (Normal)
== END | disposition home or self-care (01) ==
LOC: C.LAB1850 07:05
PROVIDERS: ATTEND Internal Medicine
DX: E55.9 Vitamin D deficiency, unspecified (principal); R73.03 Prediabetes; R41.89 Other symptoms and signs involving cognitive functions and awareness

== ENCOUNTER → 2017-11-01 | Outpatient (CLI) | payer BC ==
[2017-11-01 09:34] LABS: HEMATOCRIT 42.5 % (42-52); HEMOGLOBIN 14.9 g/dL (14.0-18.0); MEAN CELL VOLUME 88.2 fL (80-100); MEAN CORPUSCULAR HEMOGLOBIN 30.9 pg (25-34); MEAN CORPUSCULAR HGB CONC 35.1 g/dl (32-36); MEAN PLATELET VOLUME 10.1 fL (7.4-10.4); PLATELET COUNT 146 K/uL (130-400); RED CELL DISTRIBUTION WIDTH CV 13.9 % (11.5-14.5); RED CELL DISTRIBUTION WIDTH SD 45.2 fL (36.4-46.3); WHITE BLOOD COUNT 5.33 K/uL (4.8-10.8)
[2017-11-01 09:55] LABS: ALBUMIN 3.5 gm/dl (3.4-5.0); ALT/SGPT 27 U/L (12-78); AST/SGOT 23 U/L (15-37); BLOOD UREA NITROGEN 18 mg/dl (7-18); CALCIUM 8.1 mg/dl (8.5-10.1); CARBON DIOXIDE 31 mmol/L (21-32); CREATININE 0.97 mg/dl (0.60-1.40); GLUCOSE 106 mg/dl (70-99); POTASSIUM 3.9 mmol/L (3.5-5.1); SODIUM 141 mmol/L (136-145)
[2017-11-01 10:07] LABS: ALKALINE PHOSPHATASE 43 U/L (45-117); CHOLESTEROL 143 mg/dl (0-200); LDL CHOLESTEROL CALCULATED 77 mg/dl; TOTAL PROTEIN 6.9 gm/dl (6.4-8.2)
== END | disposition home or self-care (01) ==
LOC: C.LAB1850 07:20
PROVIDERS: ATTEND Internal Medicine
DX: R41.89 Other symptoms and signs involving cognitive functions and awareness (principal)

== ENCOUNTER 2020-07-13 12:47 | Inpatient (IN) ==
[2020-07-13] MEDS ORDERED: SODIUM CHLORIDE 0.9% 1000ML 1,000 ML IV SCH ×2 (13:00→17:00)
[2020-07-13] MEDS ORDERED: ACETAMINOPHEN 500 MG TAB ONE (13:16)
[2020-07-13 13:17] LABS: Basophils # (auto) 0.01 K/uL (0-0.2); Basophils % (auto) 0.3 %; Hematocrit (blood only) 41.2 % (42-52); Hemoglobin 14.2 g/dL (14.0-18.0); Immature Granulocytes # (auto) 0.01 K/uL (0.00-0.02); Immature Granulocytes % (auto) 0.3 %; Lymphocytes # (auto) 0.52 K/uL (1.2-3.4); Lymphocytes % (auto) 16.1 %; Mean Corpuscular Hemoglobin 30.5 pg (25-34); Mean Corpuscular Hgb Conc 34.5 g/dL (32-36); Mean Corpuscular Volume 88.6 fL (80-100); Mean Platelet Volume 10.1 fL (7.4-10.4); Monocytes # (auto) 0.18 K/uL (0.11-0.59); Monocytes % (auto) 5.6 %; Neutrophils % (auto) 77.7 %; Platelet Count 103 K/uL (130-400); RDW Coefficient of Variation 13.4 % (11.5-14.5); RDW Standard Deviation 43.6 fL (36.4-46.3); Red Blood Count 4.65 M/uL (4.7-6.1); White Blood Count 3.22 K/uL (4.8-10.8)
[2020-07-13 13:25] LABS: INR 1.1 (0.9-1.1); Partial Thromboplastin Ratio 1.2; Partial Thromboplastin Time 34.5 Seconds (21.0-31.0); Prothrombin Time 11.4 Seconds (9.0-12.0)
--- NOTE | 2020-07-13 13:28 | Emergency Department Note ---
History of Present Illness General Chief complaint: Shortness of Breath/Dyspnea Time Seen by Provider: 07/13/20 12:48 Source: patient Mode of arrival: ambulatory Limitations: no limitations History of Present Illness Provider complaint: Shortness of breath The patient presents to the ED with some increased work of breathing. He was transported here after receiving the results of his Covid test that was taken a few days ago. He was Covid positive. His family sentiment for further evaluation. Room air oxygen saturations for EMS was 91%. The patient denies any specific complaints. Denies any cough or shortness of breath. He had diarrhea couple days ago. Denies any specific weakness. When asked if anything bothers him, he states no. Home Medications Medication Instructions Recorded Confirmed Type cholecalciferol (vitamin D3) 25 1,000 units PO QAM 02/19/19 07/13/20 History mcg (1,000 unit) capsule ascorbic acid (vitamin C) 500 mg 500 mg PO QAM tab 04/23/19 07/13/20 History tablet multivitamin 1 tab PO QAM 04/23/19 07/13/20 History vitamins A,C,B-cvii-tywxbg 7,160 1 tab PO DAILY tab 05/18/19 07/13/20 History unit-113 mg-100 unit tablet albuterol sulfate 90 mcg/actuation 1 - 2 puffs INH Q4H PRN #18 gm 07/16/19 07/13/20 Rx aerosol inhaler montelukast 10 mg tablet 10 mg PO QAM #90 tab 08/27/19 07/13/20 Rx finasteride 5 mg tablet 5 mg PO DAILY #90 tab 09/18/19 07/13/20 Rx tamsulosin 0.4 mg capsule 0.4 mg PO DAILY #90 cap 09/18/19 07/13/20 Rx lansoprazole 30 mg capsule,delayed 30 mg PO QAM #90 cap 09/25/19 07/13/20 Rx release fluticasone 500 mcg-salmeterol 50 1 puffs INHALATION BID #1 ea 09/26/19 07/13/20 Rx mcg/dose blistr powdr for inhalation memantine 10 mg tablet 10 mg PO BID #180 tab 04/29/20 07/13/20 Rx aspirin 81 mg PO DAILY 07/13/20 07/13/20 History cetirizine [Zyrtec] 10 mg PO DAILY PRN 07/13/20 07/13/20 History cyanocobalamin (vitamin B-12) 1,000 mcg PO DAILY 07/13/20 07/13/20 History [Vitamin B-12] famotidine 40 mg PO DAILY 07/13/20 07/13/20 History fexofenadine [Kimberly] 180 mg PO DAILY PRN 07/13/20 07/13/20 History wheat dextrin [Benefiber Sugar 1 packet PO DAILY 07/13/20 07/13/20 History Free (dextrin)] Allergies Allergy/AdvReac Type Severity Reaction Status Date / Time No Known Drug Allergies Allergy Verified 07/13/20 14:09 Past Med/Surg History Medical History (Updated 07/13/20 @ 15:06 by Kavin Heard DO) Adenomatous polyp of colon Bronchitis Infectious discitis Mild acid reflux Prediabetes Vitamin D deficiency Surgical History History of prostate biopsy S/P cataract surgery S/P cholecystectomy S/P foot surgery Family History Mother Cancer Father Dementia Other Heart disease No family history of adverse response to anesthesia No family history of bleeding disorder Denies family history of Crohn's disease Colorectal cancer Social History Smoking Status: Never smoker Second Hand Exposure: No; Hx Alcohol Use: Yes Hx Substance Use: No Preferred Language: Italian Communication Ability: Effective Visual Impairment: No Limitations Hearing Ability: Normal marital status: Current Living Situation: Spouse current occupational status: retired Feels Safe at Home: Yes Dental Care, Regularly: Yes Physical Activity Frequency: Daily Physical Activity Frequency Comment: walking Seatbelt Use: always Sunscreen Use: Yes Review of Systems A total of 10 systems reviewed and were otherwise negative Physical Exam Vital Signs Vital Signs - 24 hr 07/13/20 13:10 07/13/20 13:11 07/13/20 13:12 Temperature 38.7 C H Temperature Source Oral Pulse Rate 70 Respiratory Rate 22 Respiratory Effort / Characteristics Short of Breath Respiratory Depth Normal Respiratory Pattern Regular Blood Pressure 126/60 Blood Pressure Mean 75 Blood Pressure Position Lying Pulse Oximetry 92 92 92 Oxygen Delivery Method Room Air Room Air Room Air Oxygen Flow Rate 0 Sepsis Recent Fever Within 48 Hours Yes Sepsis New/Unexplained Change in Mental Status N/A Sepsis Action Taken by Nursing Physician Notified Oxygen Flow Rate - Titration Pulse Oximetry Post Tiitration 07/13/20 13:30 07/13/20 13:56 07/13/20 14:30 Temperature Temperature Source Pulse Rate 68 60 Respiratory Rate 24 24 Respiratory Effort / Characteristics Respiratory Depth Respiratory Pattern Blood Pressure 117/52 L 101/49 L Blood Pressure Mean 84 65 Blood Pressure Position Pulse Oximetry 90 89 L 96 Oxygen Delivery Method Room Air Room Air Nasal Cannula Nasal Cannula Oxygen Flow Rate 0 2 Sepsis Recent Fever Within 48 Hours Sepsis New/Unexplained Change in Mental Status Sepsis Action Taken by Nursing Oxygen Flow Rate - Titration 2 Pulse Oximetry Post Tiitration 96 CONSTITUTIONAL/VITAL SIGNS: Reviewed / noted above. GENERAL: Non-toxic in appearance. INTEGUMENTARY: Warm, dry, and [place]. HEAD: Normocephalic. EYES: without scleral icterus or trauma. ENT/OROPHARYNX: clear and moist. LYMPHADENOPATHY/NECK: Is supple without lymphadenopathy or meningismus. RESPIRATORY: Lungs clear and equal. CARDIOVASCULAR: Regular rate and rhythm. GI/ABDOMEN: Soft and nontender. No organomegaly or pulsatile mass. No rebound or guarding. Normal bowel sounds. EXTREMITIES: Warm and well perfused. BACK: No CVA tenderness. NEUROLOGICAL: Intact without focal deficits. PSYCHIATRIC: normal affect. MUSCULOSKELETAL: Normally developed with good muscle tone. TRIAGE NURSING DOCUMENTATION REVIEWED. Course Administered Medications Remdesivir 200 mg/ Sodium (Chloride) 250 mls @ 125 mls/hr IV ONE STA; Protocol Stop: 07/13/20 16:28 Last Admin: 07/13/20 14:57 Dose: 125 mls/hr Documented by: [id number] Dexamethasone 6 mg/ Syringe 1.5 mls @ 1 mls/min IV DAILY EVIE Stop: 07/23/20 14:29 Last Admin: 07/13/20 14:58 Dose: 1 mls/min Documented by: [id number] Discontinued Medications Acetaminophen (Acetaminophen 500 Mg Tab) Confirm Administered Dose 500 mg .ROUTE .STK-MED ONE Stop: 07/13/20 13:17 Last Admin: 07/13/20 13:18 Dose: 500 mg Documented by: [id number] Dexamethasone (Dexamethasone Sod Inj 10 Mg/Ml Vial) Confirm Administered Dose 10 mg .ROUTE .STK-MED ONE Stop: 07/13/20 14:47 Last Admin: 07/13/20 14:58 Dose: Not Given Documented by: [id number] Sodium Chloride (Nss 1000ml) 1,000 mls @ 999 mls/hr IV .Q1H1M EVIE Stop: 07/13/20 14:00 Last Infusion: 07/13/20 14:10 Dose: 0 mls/hr Documented by: [id number] Admin: 07/13/20 13:09 Dose: 999 mls/hr Documented by: [id number] Medical Decision Making Differential Diagnosis Differential includes acute coronary syndrome, myocardial infarction, CVA, TIA, anemia, infection, pneumonia, UTI, pyelonephritis, poor nutrition, dehydration, electrolyte disturbance,hypoglycemia. Medical Records Attestation: I reviewed the patient's medical records. Home Medications Current Medication List: was personally reviewed by me Laboratory Data Attestation: I reviewed the patient's lab results. Result diagrams: 07/13/20 13:04 07/13/20 13:04 Lab Results 07/13/20 07/13/20 07/13/20 Range/Units 13:04 13:04 13:04 WBC 3.22 L (4.8-10.8) K/uL RBC 4.65 L (4.7-6.1) M/uL Hgb 14.2 (14.0-18.0) g/dL Hct 41.2 L (42-52) % MCV 88.6 (80-100) fL MCH 30.5 (25-34) pg MCHC 34.5 (32-36) g/dL RDW Std Deviation 43.6 (36.4-46.3) fL RDW Coeff of Anna 13.4 (11.5-14.5) % Plt Count 103 L (130-400) K/uL MPV 10.1 (7.4-10.4) fL Immature Gran % (Auto) 0.3 % Neut % (Auto) 77.7 % Lymph % (Auto) 16.1 % [place] % (Auto) 5.6 % Eos % (Auto) 0.0 % Baso % (Auto) 0.3 % Neut # (Auto) 2.50 (1.4-6.5) K/uL Lymph # (Auto) 0.52 L (1.2-3.4) K/uL [place]on # (Auto) 0.18 (0.11-0.59) K/uL Eos # (Auto) 0.00 (0-0.5) K/uL Baso # (Auto) 0.01 (0-0.2) K/uL Immature Gran # (Auto) 0.01 (0.00-0.02) K/uL PT 11.4 (9.0-12.0) Seconds INR 1.1 (0.9-1.1) APTT 34.5 H (21.0-31.0) Seconds PTT Ratio 1.2 Sodium 129 L (136-145) mmol/L Potassium 3.6 (3.5-5.1) mmol/L Chloride 103 (98-107) mmol/L Carbon Dioxide 26 (21-32) mmol/L Anion Gap 0 L (3-11) BUN 30 H (7-18) mg/dl Creatinine 0.83 (0.6-1.4) mg/dl Est Cr Clr Drug Dosing 67.2 ml/min Est GFR ( Amer) 91.7 Est GFR (Non-Af Amer) 79.1 BUN/Creatinine Ratio 36.7 H (10-20) Glucose 118 H (70-99) mg/dl Lactate (0.4-2.0) mmol/L Calcium 8.2 L (8.5-10.1) mg/dl Magnesium 2.2 (1.8-2.4) mg/dl Total Bilirubin 0.8 (0.2-1) mg/dl AST 39 H (15-37) U/L ALT 32 (12-78) U/L Alkaline Phosphatase 45 (45-117) U/L Troponin I 0.024 (0-0.045) ng/ml Total Protein 7.5 (6.4-8.2) gm/dl Albumin 3.6 (3.4-5.0) gm/dl Globulin 3.9 (2.5-4.0) gm/dl Albumin/Globulin Ratio 0.9 (0.9-2) Procalcitonin (0-0.5) ng/ml Influ A Molecular Assay (Negative) Influ B Molecular Assay (Negative) 07/13/20 07/13/20 07/13/20 Range/Units 13:04 13:04 13:20 WBC (4.8-10.8) K/uL RBC (4.7-6.1) M/uL Hgb (14.0-18.0) g/dL Hct (42-52) % MCV (80-100) fL MCH (25-34) pg MCHC (32-36) g/dL RDW Std Deviation (36.4-46.3) fL RDW Coeff of Anna (11.5-14.5) % Plt Count (130-400) K/uL MPV (7.4-10.4) fL Immature Gran % (Auto) % Neut % (Auto) % Lymph % (Auto) % [place] % (Auto) % Eos % (Auto) % Baso % (Auto) % Neut # (Auto) (1.4-6.5) K/uL Lymph # (Auto) (1.2-3.4) K/uL [place] # (Auto) (0.11-0.59) K/uL Eos # (Auto) (0-0.5) K/uL Baso # (Auto) (0-0.2) K/uL Immature Gran # (Auto) (0.00-0.02) K/uL PT (9.0-12.0) Seconds INR (0.9-1.1) APTT (21.0-31.0) Seconds PTT Ratio Sodium (136-145) mmol/L Potassium (3.5-5.1) mmol/L Chloride (98-107) mmol/L Carbon Dioxide (21-32) mmol/L Anion Gap (3-11) BUN (7-18) mg/dl Creatinine (0.6-1.4) mg/dl Est Cr Clr Drug Dosing ml/min Est GFR ( Amer) Est GFR (Non-Af Amer) BUN/Creatinine Ratio (10-20) Glucose (70-99) mg/dl Lactate 1.0 (0.4-2.0) mmol/L Calcium (8.5-10.1) mg/dl Magnesium (1.8-2.4) mg/dl Total Bilirubin (0.2-1) mg/dl AST (15-37) U/L ALT (12-78) U/L Alkaline Phosphatase (45-117) U/L Troponin I (0-0.045) ng/ml Total Protein (6.4-8.2) gm/dl Albumin (3.4-5.0) gm/dl Globulin (2.5-4.0) gm/dl Albumin/Globulin Ratio (0.9-2) Procalcitonin < 0.05 (0-0.5) ng/ml Influ A Molecular Assay Negative (Negative) Influ B Molecular Assay Negative (Negative) Imaging Data Radiologist's Impression: XR chest 1V portable HISTORY: SEPSIS COMPARISON: Chest 12/01/2016. FINDINGS: The lungs are clear. Cardiac silhouette is normal in size. No pleural effusions. No pneumothorax. IMPRESSION: No acute process. ECG Data Attestation: I personally reviewed and interpreted this ECG as follows: Indication: + weakness Rate (beats per minute): 75 Rhythm: + sinus with SA ECG ST segments: no ST elevation ECG Findings: no PVCs MDM Narrative Patient presents to the ED after getting the diagnosis of COVID-19 results today. He has had some increased work of breathing. Vital signs here appear to be stable. He does have a fever 38.7. He was given some Tylenol. He was also given some IV fluids. Chest x-ray was negative for acute disease. CBC and chemistry panel did not show any significant abnormalities. His BUN was 30. Procalcitonin was negative. Flu swab was negative. Troponin is negative. During the patient's ED stay, he did drop to saturations around 88% while resting in bed. For this reason he was started on Decadron and remdesivir. He will be admitted to the hospital for further inpatient evaluation. Impression & Plan COVID-19, Hypoxia Discharge Plan Visit Data Chief Complaint: Shortness of Breath/Dyspnea ED Provider: Kavin Heard Discharge Problem: COVID-19, Hypoxia Patient Disposition: Being Evaluated by Hospitalist Forms Stand Alone Forms: My [facility] Prescriptions Prescriptions: No Action albuterol sulfate 90 mcg/actuation HFA aerosol inhaler 1 - 2 puffs INH Q4H PRN (Reason: shortness of breath or wheezing) Qty: 18 RF: 6 montelukast 10 mg tablet 10 mg PO QAM Qty: 90 RF: 3 lansoprazole 30 mg capsule,delayed release(DR/EC) 30 mg PO QAM Qty: 90 RF: 3 memantine 10 mg tablet 10 mg PO BID Qty: 180 RF: 1 ascorbic acid (vitamin C) 500 mg tablet 500 mg PO QAM RF: 0 multivitamin tablet 1 tab PO QAM RF: 0 tamsulosin 0.4 mg capsule 0.4 mg PO DAILY Qty: 90 RF: 3 finasteride 5 mg tablet 5 mg PO DAILY Qty: 90 RF: 3 cholecalciferol (vitamin D3) 1,000 unit capsule 1,000 units PO QAM RF: 0 vitamins A,C,X-dozd-hlablx 7,160-113-100 poto-mn-fuvu tablet 1 tab PO DAILY RF: 0 fluticasone propion-salmeterol 500-50 mcg/dose blister with device 1 puffs inhalation BID Qty: 1 RF: 5 cetirizine [Zyrtec] 10 mg Tablet 10 mg PO DAILY PRN (Reason: Allergy Symptoms) RF: 0 famotidine 40 mg tablet 40 mg PO DAILY RF: 0 cyanocobalamin (vitamin B-12) [Vitamin B-12] 1,000 mcg Tablet 1,000 mcg PO DAILY RF: 0 fexofenadine [Kimberly] 180 mg Tablet 180 mg PO DAILY PRN (Reason: Allergy Symptoms) RF: 0 aspirin 81 mg Tablet,Delayed Release (Dr/Ec) 81 mg PO DAILY RF: 0 Benefiber Sugar Free (dextrin) 3 gram/3.5 gram Powder 1 packet PO DAILY RF: 0 Referrals Referrals: Gregorio Rinaldi MD [Primary Care Provider] -
--- NOTE | 2020-07-13 13:31 | XRay Report ---
XR chest 1V portable HISTORY: SEPSIS COMPARISON: Chest 12/01/2016. FINDINGS: The lungs are clear. Cardiac silhouette is normal in size. No pleural effusions. No pneumot horax. IMPRESSION: No acute process. ACT 112: Negative or not required by law. Electronically signed by: Lester Hanks M.D. 07/13/2020 1:30 PM
[2020-07-13 13:32] LABS: Albumin Level 3.6 gm/dl (3.4-5.0); BUN Creatinine Ratio 36.7 (10-20); Calcium 8.2 mg/dl (8.5-10.1); Creatinine Clr Calc Pharmacy 67.2 ml/min; Est GFR (African American) 91.7; Est GFR (Non-African American) 79.1; Magnesium 2.2 mg/dl (1.8-2.4); Potassium 3.6 mmol/L (3.5-5.1)
[2020-07-13 13:37] LABS: Albumin Globulin Ratio 0.9 (0.9-2); Bilirubin,Total 0.8 mg/dl (0.2-1); Globulin 3.9 gm/dl (2.5-4.0); Total Protein 7.5 gm/dl (6.4-8.2); Troponin I 0.024 ng/ml (0-0.045)
[2020-07-13 14:01] LABS: Influenza A virus by PCR Negative (Negative); Influenza B virus by PCR Negative (Negative)
[2020-07-13] MEDS ORDERED: REMDESIVIR 200 MG in SODIUM CHLORIDE 0.9% 210 ML IV STA (14:29)
[2020-07-13] MEDS ORDERED: SODIUM CHLORIDE 0.9% 10ML FLUSH IV SCH (14:30)
[2020-07-13] MEDS ORDERED: DEXAMETHASONE SOD INJ 10 MG/ML VIAL ONE (14:46)
[2020-07-13] MEDS: dexAMETHasone 6 MG in SYRINGE 0 ML IV SCH (14:58)
--- NOTE | 2020-07-13 15:04 | History & Physical Report ---
Date of Service July 13, 2020 Assessment & Plan (1) COVID-19: Patient presents with 6 days of fevers, generalized fatigue and weakness, mild diarrhea, confusion, and acute respiratory failure with hypoxia. Found to be positive for Covid-19 from a test collected on 07/11 Brought into the ER by EMS after family noticed him to have increased confusion. Found to have mild hypoxia with pulse ox 88% on room air, and dehydration with elevated BUN and sodium of 129. With leukopenia, thrombocytopenia, and mildly elevated AST consistent with Covid-19 -Admit to medical floor, Covid precautions -Continue supplemental O2 to keep pulse ox greater than 89-92% -Given that he is requiring oxygen and pulse ox is 94%, considered severe Covid disease although his chest x-ray is clear and he is in no respiratory distress, but does have underlying asthma with some wheezing on admission -Start dexamethasone 6 mg IV once daily x10-day course -Start remdesivir x5-day course -Discussed convalescent plasma with the patient's on the phone as the patient is confused and only oriented x1-she gives verbal consent for him to receive this. -PT/OT consultations-continue to encourage mobilization -Encourage p.o. intake -IV fluids gentle x1 more liter to be given for mild dehydration associated with diarrhea -Follow CMP, CBC in the morning (2) Hypoxia: As noted above, secondary to Covid-19 with bronchitis and likely asthma exacerbation Continue supplemental O2, dexamethasone (3) Asthma: with some mild wheezing on admission with hypoxia as above -Continue dexamethasone as above -Make albuterol HFA scheduled every 6 hours (4) Benign prostatic hyperplasia with urinary obstruction: Continue home finasteride and tamsulosin No acute issues but watch for urinary retention (5) Hyponatremia: With elevated BUN, sodium of 129 on admission likely secondary to dehydration from diarrhea and Covid-19 Continue normal saline x1 more liter Follow BMP in the morning Encourage p.o. intake (6) Cognitive impairment: Mild Continue memantine (7) Mild acid reflux: Continue home PPI (8) Prediabetes: No hemoglobin A1c in the system for 1 year, check hemoglobin A1c in the morning Given dexamethasone administration, will likely develop hyperglycemia Check Accu-Cheks and give NovoLog sliding scale for now (9) Vitamin D deficiency: Continue vitamin D supplementation (10) First degree atrioventricular block: Chronic, no acute issues (11) Thrombocytopenia: Platelets 103, secondary to viral illness Follow CBC in the morning (12) DVT prophylaxis: Lovenox twice daily Disposition-admit to medical/surgical floor Full code as per discussion with patient and History of Present Illness Chief Complaint: COVID-19, shortness of breath Primary Care Provider: Gregorio Rinaldi MD This patient is an 85-year-old male with a history of prediabetes, asthma, GERD, vitamin D deficiency, infectious discitis, BPH, and mild cognitive impairment, who presents to the ER at the encouragement of his daughter who is a hypoid gear tester after finding out today that he had a positive Covid-19 test as well as increasing confusion. He has had symptoms for 6 days that started with fever and fatigue, bronchitis type cough and runny nose, some mild diarrhea and some generalized weakness. The patient has some mild cognitive impairment and increased confusion, but when I asked how he feels, he states "I feel like I am floating." He also reports otherwise that he feels fine, but that if he try to get out of the bed he thinks he would probably just fall over on the floor. The PCP called to inform the patient of his positive result today and spoke with the on the phone. The patient's daughter came into town today and is a physician and called for EMS to bring him to the ER for increasing confusion. He was found to be mildly hypoxic at 88% on room air. He was placed on 2 L of oxygen and given a dose of dexamethasone as well as Remdesivir. He was also given 1 L of normal saline and Tylenol as he was febrile in the ER. He was found to have abnormal laboratory values with a sodium of 129, BUN mildly elevated at 30, and leukopenia with a WBC count of 3.22 as well as mildly low platelets at 103. AST is mildly elevated at 39. Troponin was slightly detectable but within normal range at 0.024. A procalcitonin was negative. A flu swab was also checked which was negative. His chest x-ray was clear. He will be admitted for Covid-19 with hypoxia. Allergies Allergy/AdvReac Type Severity Reaction Status Date / Time No Known Drug Allergies Allergy Verified 07/13/20 14:09 Home Medications Medication Instructions Recorded Confirmed Type cholecalciferol (vitamin D3) 25 1,000 units PO QAM 02/19/19 07/13/20 History mcg (1,000 unit) capsule ascorbic acid (vitamin C) 500 mg 500 mg PO QAM tab 04/23/19 07/13/20 History tablet multivitamin 1 tab PO QAM 04/23/19 07/13/20 History vitamins A,C,N-kuso-ufdsxi 7,160 1 tab PO DAILY tab 05/18/19 07/13/20 History unit-113 mg-100 unit tablet albuterol sulfate 90 mcg/actuation 1 - 2 puffs INH Q4H PRN #18 gm 07/16/19 07/13/20 Rx aerosol inhaler montelukast 10 mg tablet 10 mg PO QAM #90 tab 08/27/19 07/13/20 Rx finasteride 5 mg tablet 5 mg PO DAILY #90 tab 09/18/19 07/13/20 Rx tamsulosin 0.4 mg capsule 0.4 mg PO DAILY #90 cap 09/18/19 07/13/20 Rx lansoprazole 30 mg capsule,delayed 30 mg PO QAM #90 cap 09/25/19 07/13/20 Rx release fluticasone 500 mcg-salmeterol 50 1 puffs INHALATION BID #1 ea 09/26/19 07/13/20 Rx mcg/dose blistr powdr for inhalation memantine 10 mg tablet 10 mg PO BID #180 tab 04/29/20 07/13/20 Rx aspirin 81 mg PO DAILY 07/13/20 07/13/20 History cetirizine [Zyrtec] 10 mg PO DAILY PRN 07/13/20 07/13/20 History cyanocobalamin (vitamin B-12) 1,000 mcg PO DAILY 07/13/20 07/13/20 History [Vitamin B-12] famotidine 40 mg PO DAILY 07/13/20 07/13/20 History fexofenadine [Kimberly] 180 mg PO DAILY PRN 07/13/20 07/13/20 History wheat dextrin [Benefiber Sugar 1 packet PO DAILY 07/13/20 07/13/20 History Free (dextrin)] Past Med/Surg History Medical History (Updated 07/13/20 @ 17:43 by Yvette Thornton MD) Adenomatous polyp of colon Arthritis Asthma Benign prostate hyperplasia Bronchitis Cognitive impairment First degree atrioventricular block Hearing loss Infectious discitis MCI (mild cognitive impairment) Mild acid reflux Prediabetes Vitamin D deficiency Surgical History History of prostate biopsy S/P cataract surgery S/P cholecystectomy S/P foot surgery Family History Mother Cancer Father Dementia Other Heart disease No family history of adverse response to anesthesia No family history of bleeding disorder Denies family history of Crohn's disease Colorectal cancer Social History (Updated 07/13/20 @ 17:31 by Yvette Thornton MD) Smoking Status: Former smoker Age Quit Using Tobacco: 44; Second Hand Exposure: No; Hx Alcohol Use: Yes Hx Substance Use: No Preferred Language: Turkish Communication Ability: Effective Visual Impairment: No Limitations Hearing Ability: Normal marital status: Current Living Situation: Spouse current occupational status: retired Feels Safe at Home: Yes Dental Care, Regularly: Yes Physical Activity Frequency: Daily Physical Activity Frequency Comment: walking Seatbelt Use: always Sunscreen Use: Yes Review of Systems Review of Systems: All systems reviewed & are unremarkable except as noted in HPI & below Denies headache, sore throat, shortness of breath, cough, nausea/vomiting, no abdominal pain. Feels generally weak but reports that he is eating and drinking well at home. Physical Exam Constitutional: WD/WN, vitals as above Eyes: PERRL, conjunctivae normal, anicteric sclerae ENMT: external ear and nose normal, oropharynx normal Neck: trachea midline, no thyromegaly Respiratory: normal respiratory effort Auscultation: + wheezes (A few scattered expiratory wheezes at the bases); no crackles Cardiovascular: RRR, no murmur, no edema Chest (Breasts): Chest: normal inspection of chest Gastrointestinal (Abdomen): normal bowel sounds, soft, nontender, no hepatosplenomegaly Musculoskeletal: Extremities: extremities normal to inspection; no cyanosis and no clubbing Skin: no rashes, warm and dry Neurologic: moves all extremities and awake; no focal motor deficits Psychiatric: Orientation: alert, oriented to person and cooperative; + not oriented to place and + not oriented to time Eye Contact: good eye contact Speech: normal rate/rhythm/volume of speech Affect: euthymic affect Lymphatic: no lymphedema Results & Data Results & Data ([facility]) Vital Signs (Past 12 Hours) Vital Signs Temp Pulse Resp BP Pulse Ox 07/13/20 14:30 60 24 101/49 L 96 07/13/20 13:56 89 L 07/13/20 13:30 68 24 117/52 L 90 07/13/20 13:12 38.7 C H 70 22 126/60 92 07/13/20 13:11 92 07/13/20 13:10 92 Laboratory Results 07/13/20 07/13/20 07/13/20 Range/Units 17:15 13:20 13:04 WBC (4.8-10.8) K/uL RBC (4.7-6.1) M/uL Hgb (14.0-18.0) g/dL Hct (42-52) % MCV (80-100) fL MCH (25-34) pg MCHC (32-36) g/dL RDW Std Deviation (36.4-46.3) fL RDW Coeff of Anna (11.5-14.5) % Plt Count (130-400) K/uL MPV (7.4-10.4) fL Immature Gran % (Auto) % Neut % (Auto) % Lymph % (Auto) % Pitt % (Auto) % Eos % (Auto) % Baso % (Auto) % Neut # (Auto) (1.4-6.5) K/uL Lymph # (Auto) (1.2-3.4) K/uL Pitt # (Auto) (0.11-0.59) K/uL Eos # (Auto) (0-0.5) K/uL Baso # (Auto) (0-0.2) K/uL Immature Gran # (Auto) (0.00-0.02) K/uL PT (9.0-12.0) Seconds INR (0.9-1.1) APTT (21.0-31.0) Seconds PTT Ratio Sodium (136-145) mmol/L Potassium (3.5-5.1) mmol/L Chloride (98-107) mmol/L Carbon Dioxide (21-32) mmol/L Anion Gap (3-11) BUN (7-18) mg/dl Creatinine (0.6-1.4) mg/dl Est Cr Clr Drug Dosing ml/min Est GFR ( Amer) Est GFR (Non-Af Amer) BUN/Creatinine Ratio (10-20) Glucose (70-99) mg/dl Lactate (0.4-2.0) mmol/L Calcium (8.5-10.1) mg/dl Magnesium (1.8-2.4) mg/dl Total Bilirubin (0.2-1) mg/dl AST (15-37) U/L ALT (12-78) U/L Alkaline Phosphatase (45-117) U/L Troponin I (0-0.045) ng/ml Total Protein (6.4-8.2) gm/dl Albumin (3.4-5.0) gm/dl Globulin (2.5-4.0) gm/dl Albumin/Globulin Ratio (0.9-2) Procalcitonin < 0.05 (0-0.5) ng/ml Influ A Molecular Assay Negative (Negative) Influ B Molecular Assay Negative (Negative) Blood Type Pending Antibody Screen Pending 07/13/20 07/13/20 07/13/20 Range/Units 13:04 13:04 13:04 WBC (4.8-10.8) K/uL RBC (4.7-6.1) M/uL Hgb (14.0-18.0) g/dL Hct (42-52) % MCV (80-100) fL MCH (25-34) pg MCHC (32-36) g/dL RDW Std Deviation (36.4-46.3) fL RDW Coeff of Anna (11.5-14.5) % Plt Count (130-400) K/uL MPV (7.4-10.4) fL Immature Gran % (Auto) % Neut % (Auto) % Lymph % (Auto) % Pitt % (Auto) % Eos % (Auto) % Baso % (Auto) % Neut # (Auto) (1.4-6.5) K/uL Lymph # (Auto) (1.2-3.4) K/uL Pitt # (Auto) (0.11-0.59) K/uL Eos # (Auto) (0-0.5) K/uL Baso # (Auto) (0-0.2) K/uL Immature Gran # (Auto) (0.00-0.02) K/uL PT 11.4 (9.0-12.0) Seconds INR 1.1 (0.9-1.1) APTT 34.5 H (21.0-31.0) Seconds PTT Ratio 1.2 Sodium 129 L (136-145) mmol/L Potassium 3.6 (3.5-5.1) mmol/L Chloride 103 (98-107) mmol/L Carbon Dioxide 26 (21-32) mmol/L Anion Gap 0 L (3-11) BUN 30 H (7-18) mg/dl Creatinine 0.83 (0.6-1.4) mg/dl Est Cr Clr Drug Dosing 67.2 ml/min Est GFR ( Amer) 91.7 Est GFR (Non-Af Amer) 79.1 BUN/Creatinine Ratio 36.7 H (10-20) Glucose 118 H (70-99) mg/dl Lactate 1.0 (0.4-2.0) mmol/L Calcium 8.2 L (8.5-10.1) mg/dl Magnesium 2.2 (1.8-2.4) mg/dl Total Bilirubin 0.8 (0.2-1) mg/dl AST 39 H (15-37) U/L ALT 32 (12-78) U/L Alkaline Phosphatase 45 (45-117) U/L Troponin I 0.024 (0-0.045) ng/ml Total Protein 7.5 (6.4-8.2) gm/dl Albumin 3.6 (3.4-5.0) gm/dl Globulin 3.9 (2.5-4.0) gm/dl Albumin/Globulin Ratio 0.9 (0.9-2) Procalcitonin (0-0.5) ng/ml Influ A Molecular Assay (Negative) Influ B Molecular Assay (Negative) Blood Type Antibody Screen 07/13/20 Range/Units 13:04 WBC 3.22 L (4.8-10.8) K/uL RBC 4.65 L (4.7-6.1) M/uL Hgb 14.2 (14.0-18.0) g/dL Hct 41.2 L (42-52) % MCV 88.6 (80-100) fL MCH 30.5 (25-34) pg MCHC 34.5 (32-36) g/dL RDW Std Deviation 43.6 (36.4-46.3) fL RDW Coeff of Anna 13.4 (11.5-14.5) % Plt Count 103 L (130-400) K/uL MPV 10.1 (7.4-10.4) fL Immature Gran % (Auto) 0.3 % Neut % (Auto) 77.7 % Lymph % (Auto) 16.1 % Pitt % (Auto) 5.6 % Eos % (Auto) 0.0 % Baso % (Auto) 0.3 % Neut # (Auto) 2.50 (1.4-6.5) K/uL Lymph # (Auto) 0.52 L (1.2-3.4) K/uL Pitt # (Auto) 0.18 (0.11-0.59) K/uL Eos # (Auto) 0.00 (0-0.5) K/uL Baso # (Auto) 0.01 (0-0.2) K/uL Immature Gran # (Auto) 0.01 (0.00-0.02) K/uL PT (9.0-12.0) Seconds INR (0.9-1.1) APTT (21.0-31.0) Seconds PTT Ratio Sodium (136-145) mmol/L Potassium (3.5-5.1) mmol/L Chloride (98-107) mmol/L Carbon Dioxide (21-32) mmol/L Anion Gap (3-11) BUN (7-18) mg/dl Creatinine (0.6-1.4) mg/dl Est Cr Clr Drug Dosing ml/min Est GFR ( Amer) Est GFR (Non-Af Amer) BUN/Creatinine Ratio (10-20) Glucose (70-99) mg/dl Lactate (0.4-2.0) mmol/L Calcium (8.5-10.1) mg/dl Magnesium (1.8-2.4) mg/dl Total Bilirubin (0.2-1) mg/dl AST (15-37) U/L ALT (12-78) U/L Alkaline Phosphatase (45-117) U/L Troponin I (0-0.045) ng/ml Total Protein (6.4-8.2) gm/dl Albumin (3.4-5.0) gm/dl Globulin (2.5-4.0) gm/dl Albumin/Globulin Ratio (0.9-2) Procalcitonin (0-0.5) ng/ml Influ A Molecular Assay (Negative) Influ B Molecular Assay (Negative) Blood Type Antibody Screen Diagnostic Findings Chest x-ray image personally reviewed by me and agree with the following report: XR chest 1V portable HISTORY: SEPSIS COMPARISON: Chest 12/01/2016. FINDINGS: The lungs are clear. Cardiac silhouette is normal in size. No pleural effusions. No pneumothorax. IMPRESSION: No acute process. ECG Additional Comments: ECG on 07/13/2020 at 1253 with sinus rhythm with first- degree AV block, rate 75, otherwise normal, unchanged from previous Code Status & VTE Plan Code Status Full code VTE Prophylaxis Plan VTE Prophylaxis will be ordered: Yes PG Care Time/CCT Total # of Minutes Spent Total Time Spent with Patient: Total time spent is greater than 50% in coordination of care (as documented) at patient's floor/unit and/or counseling patient: Coding Level of Care Code 47510 Initial Inpt Care Lvl 3 Diagnoses COVID-19 U07.1 Hypoxia R09.02 Asthma J45.909 Benign prostatic hyperplasia with urinary obstruction N40.1; N13.8 Hyponatremia E87.1 Cognitive impairment R41.89 Mild acid reflux K21.9 Prediabetes R73.03 Vitamin D deficiency E55.9 First degree atrioventricular block I44.0 Thrombocytopenia D69.6 DVT prophylaxis Z29.9
[2020-07-13] MEDS ORDERED: ACETAMINOPHEN 325 MG TAB PO PRN (18:29)
[2020-07-13] MEDS ORDERED: MAGNESIUM HYDROXIDE SUSP 30 ML UDC PO PRN (18:29)
[2020-07-13] MEDS ORDERED: GLUCOSE 40% GEL 15 GM TUBE PO PRN (18:29)
[2020-07-13] MEDS ORDERED: ALUMINUM/MAGNESIUM SUSP 30 ML UDC PO PRN (18:29)
[2020-07-13] MEDS ORDERED: GLUCAGON FOR INJ 1 MG VIAL SQ PRN (18:29)
[2020-07-13] MEDS ORDERED: ONDANSETRON INJ 2 MG/ML 2 ML VIAL IV PRN (18:29)
[2020-07-13] MEDS ORDERED: CARBOHYDRATES FOR HYPOGLYCEMIA PO PRN (18:29)
[2020-07-13] MEDS ORDERED: GLUCOSE 10 TABS/TUBE PO PRN (18:29)
[2020-07-13] MEDS ORDERED: DEXTROSE 50% 50 ML SYRINGE IV PRN (18:29)
[2020-07-13] MEDS ORDERED: POLYETHYLENE (MIRALAX) 17 GM PACK PO PRN (18:29)
[2020-07-13] MEDS: ALBUTEROL HFA 8 GM INHALER INH SCH (19:15)
[2020-07-13] MEDS: ENOXAPARIN INJ 30 MG/0.3 ML SYR SQ SCH (19:36)
[2020-07-13] MEDS: LANSOPRAZOLE 30 MG SOLTAB PO SCH (19:42)
[2020-07-13] MEDS: MEMANTINE HCL 10 MG TAB PO SCH (19:43)
[2020-07-13] MEDS: MONTELUKAST SODIUM 10 MG TABLET PO SCH (19:43)
[2020-07-13] MEDS: INSULIN ASPART 100 UNITS/ML 3 ML PEN SC SCH (21:27)
[2020-07-14] MEDS: ALBUTEROL HFA 8 GM INHALER INH SCH ×4 (01:04→19:32)
[2020-07-14 04:24] LABS: Appearance Urine Clear (Clear); Bacteria Urine Automated Negative (Negative); Bilirubin Urine Negative (Negative); Blood Urine Negative (Negative); Color Urine Dark Yellow; Glucose Urine UA Negative (Negative); Ketones Urine 1+ (Negative); Leukocyte Esterase Urine Negative (Negative); Nitrite Urine Negative (Negative); Protein Urine 2+ (Negative); RBC Urine Automated 0-4 /hpf (0-4); Specific Gravity Urine 1.031 (1.000-1.030); Urobilinogen Urine Negative (Negative)
--- NOTE | 2020-07-14 06:14 | Electrocardiogram Report ---
Test Reason : Blood Pressure : / mmHG Vent. Rate : 075 BPM Atrial Rate : 075 BPM P-R Int : 210 ms QRS Dur : 092 ms QT Int : 374 ms P-R-T Axes : 063 -10 060 degrees QTc Int : 417 ms Sinus rhythm with 1st degree A-V block Otherwise normal ECG When compared with ECG of 07-DEC-2016 18:13, No significant change was found Confirmed by Ru Aguilera ([id number]) on 07/14/2020 6:14:14 AM Referred By: Confirmed By:Ru Aguilera
[2020-07-14 06:32] LABS: Hematocrit (blood only) 37.3 % (42-52); Hemoglobin 12.8 g/dL (14.0-18.0); Mean Corpuscular Hemoglobin 30.5 pg (25-34); Mean Corpuscular Hgb Conc 34.3 g/dL (32-36); Mean Corpuscular Volume 88.8 fL (80-100); RDW Coefficient of Variation 13.4 % (11.5-14.5); RDW Standard Deviation 43.9 fL (36.4-46.3); White Blood Count 2.06 K/uL (4.8-10.8)
[2020-07-14 07:01] LABS: Mean Platelet Volume 10.6 fL (7.4-10.4); Platelet Count 99 K/uL (130-400)
[2020-07-14 07:02] LABS: Lymphocytes # (auto) 0.69 K/uL (1.2-3.4); Lymphocytes % (auto) 33.5 %; Monocytes # (auto) 0.43 K/uL (0.11-0.59); Monocytes % (auto) 20.9 %; Neutrophils # (auto) 0.94 K/uL (1.4-6.5); Neutrophils % (auto) 45.6 %; Platelet Estimate Decreased (Normal)
[2020-07-14 07:09] LABS: Albumin Level 2.8 gm/dl (3.4-5.0); BUN Creatinine Ratio 39.4 (10-20); Creatinine Clr Calc Pharmacy 64.6 ml/min; Est GFR (African American) 94.1; Est GFR (Non-African American) 81.2; Potassium 3.7 mmol/L (3.5-5.1)
[2020-07-14 07:11] LABS: Albumin Globulin Ratio 0.9 (0.9-2); Bilirubin,Total 0.5 mg/dl (0.2-1); Globulin 3.2 gm/dl (2.5-4.0)
[2020-07-14 08:11] LABS: Estimated Average Glucose 126 mg/dl
[2020-07-14] MEDS: FLUTICASONE/VILANTEROL 200/25MCG 14 PUFFS/INHALER INH SCH (08:45)
[2020-07-14] MEDS: dexAMETHasone 6 MG in SYRINGE 0 ML IV SCH (08:45)
[2020-07-14] MEDS: TAMSULOSIN HCL 0.4 MG CAP PO SCH (08:46)
[2020-07-14] MEDS: ASPIRIN 81 MG ECTAB PO SCH (08:46)
[2020-07-14] MEDS: MULTIVITAMIN TAB PO SCH (08:46)
[2020-07-14] MEDS: FINASTERIDE 5 MG TAB PO SCH (08:46)
[2020-07-14] MEDS: CHOLECALCIFEROL 1,000 UNITS 25 MCG TAB PO SCH (08:46)
[2020-07-14] MEDS: ENOXAPARIN INJ 30 MG/0.3 ML SYR SQ SCH ×2 (08:46→20:39)
[2020-07-14] MEDS: ASCORBIC ACID 500 MG TAB PO SCH (08:46)
[2020-07-14] MEDS: LANSOPRAZOLE 30 MG SOLTAB PO SCH (08:46)
[2020-07-14] MEDS: CYANOCOBALAMIN 500 MCG TABLET (VITAMIN B-12) PO SCH (08:46)
[2020-07-14] MEDS: MEMANTINE HCL 10 MG TAB PO SCH ×2 (08:46→20:39)
[2020-07-14] MEDS: CEROVITE ADV FORMULA TAB PO SCH (08:47)
[2020-07-14] MEDS: INSULIN ASPART 100 UNITS/ML 3 ML PEN SC SCH ×4 (08:48→20:39)
[2020-07-14] MEDS ORDERED: REMDESIVIR 100 MG in SODIUM CHLORIDE 0.9% 230 ML IV SCH (12:00)
--- NOTE | 2020-07-14 12:52 | Hospitalist Progress Note ---
Date of Service July 14, 2020 Assessment & Plan (1) COVID-19: Patient presents with 6 days of fevers, generalized fatigue and weakness, mild diarrhea, confusion, and acute respiratory failure with hypoxia. Found to be positive for Covid-19 from a test collected on 07/11 Brought into the ER by EMS after family noticed him to have increased confusion. Found to have mild hypoxia with pulse ox 88% on room air, and dehydration with elevated BUN and sodium of 129. With leukopenia, thrombocytopenia, and mildly elevated AST consistent with Covid-19 -continue on COVID floor -Continue supplemental O2 to keep pulse ox greater than 89-92%, he is on room air today, 95% -continue dexamethasone 6mg daily, day 2 -will stop Remdesivir since he is stable on room air -he is consented for plasma, will administer today if available -PT/OT consultations-continue to encourage mobilization make sure he is safe to go home -Encourage p.o. intake, eating and drinking really well today, no further IV fluids needed if he remains off oxygen and if he is strong enough, will d/c home tomorrow morning (2) Hypoxia: As noted above, secondary to Covid-19 with bronchitis and likely asthma exacerbation titrated to room air today continue dexamethasone tomorrow morning (3) Asthma: with some mild wheezing on admission with hypoxia as above, no wheezing today -Continue dexamethasone as above -Make albuterol HFA scheduled every 6 hours (4) Benign prostatic hyperplasia with urinary obstruction: Continue home finasteride and tamsulosin No acute issues but watch for urinary retention (5) Hyponatremia: With elevated BUN, sodium of 129 on admission likely secondary to dehydration from diarrhea and Covid-19 Na is normal at 148, BUN still high at 31 but Cr normal drinking well, encouraged him to continue with this (6) Cognitive impairment: Mild Continue memantine (7) Mild acid reflux: Continue home PPI (8) Prediabetes: No hemoglobin A1c in the system for 1 year, check hemoglobin A1c - 6.0% Given dexamethasone administration, will likely develop hyperglycemia Check Accu-Cheks and give NovoLog sliding scale for now (9) Vitamin D deficiency: Continue vitamin D supplementation (10) First degree atrioventricular block: Chronic, no acute issues (11) Thrombocytopenia: Platelets 99k, secondary to viral illness Follow CBC in the morning this will be self limiting (12) DVT prophylaxis: Lovenox twice daily, monitor plts, if they drop below 50k then hold Lovenox Disposition-admit to medical/surgical floor, PT/OT evaluations, plan to go home tomorrow if safe Full code (13) Leukopenia: WBC 2k with ANC of 0.9 due to viral infection repeat tomorrow Admission and Anticipated Discharge Date Admission Date: July 13, 2020 Subjective patient feeling great, he ate his entire breakfast and he is getting ready to eat lunch he is breathing well, minimal dry cough no fever/chills he has been off oxygen all day reviewed CXR, there were no infiltrates on my read labs show leukopenia and neutropenia, plts 99k Cr and electrolytes stable discussed going home tomorrow as long as he remains on room air, he agreed with the plan Review of Systems Review of Systems: All systems reviewed & are unremarkable except as noted in Subjective Physical Exam Constitutional: WD/WN, vitals as above no acute distress Neck: trachea midline, no thyromegaly Respiratory: normal respiratory effort, lungs clear to auscultation Cardiovascular: RRR, no murmur, no edema Gastrointestinal (Abdomen): normal bowel sounds, soft, nontender, no hepatosplenomegaly Musculoskeletal: no cyanosis or clubbing, extremities motor strength 5/5 Skin: no rashes, warm and dry Neurologic: patellar DTR's 2+ bilat, sensation intact and PERRL, EOMI, accommodation nl, no face palsy, no dysarthria Psychiatric: A+Ox3, euthymic affect Lymphatic: no cervical or axillary lymphadenopathy Results & Data Results & Data ([facility]) Vital Signs (Past 12 Hours) Vital Signs Temp Pulse Pulse Resp BP BP Pulse Ox 07/14/20 11:25 07/14/20 07:56 78 20 99 07/14/20 07:42 35 L 07/14/20 07:10 36.6 C 42 L 20 156/70 H 99 07/14/20 05:28 36.6 C 48 L 18 109/56 L 97 07/14/20 01:05 38 L 18 99 07/14/20 01:00 42 L Pulse Ox Pulse Ox Pulse Ox 07/14/20 11:25 95 95 84 L 07/14/20 07:56 07/14/20 07:42 07/14/20 07:10 07/14/20 05:28 07/14/20 01:05 07/14/20 01:00 Laboratory Results Laboratory Results - last 24 hr 07/13/20 07/13/20 07/13/20 13:04 13:04 13:04 WBC 3.22 L RBC 4.65 L Hgb 14.2 Hct 41.2 L MCV 88.6 MCH 30.5 MCHC 34.5 RDW Std Deviation 43.6 RDW Coeff of Anna 13.4 Plt Count 103 L MPV 10.1 Immature Gran % (Auto) 0.3 Neut % (Auto) 77.7 Lymph % (Auto) 16.1 [place] % (Auto) 5.6 Eos % (Auto) 0.0 Baso % (Auto) 0.3 Neut # (Auto) 2.50 Lymph # (Auto) 0.[address] [place] # (Auto) 0.18 Eos # (Auto) 0.00 Baso # (Auto) 0.01 Immature Gran # (Auto) 0.01 Platelet Estimate PT 11.4 INR 1.1 APTT 34.5 H PTT Ratio 1.2 Sodium 140 Potassium 3.6 Chloride 103 Carbon Dioxide 26 Anion Gap 11.0 BUN 30 H Creatinine 0.83 Est Cr Clr Drug Dosing 67.2 Est GFR ( Amer) 91.7 Est GFR (Non-Af Amer) 79.1 BUN/Creatinine Ratio 36.7 H Glucose 118 H POC Glucose Estimat Average Glucose Hemoglobin A1c Lactate Calcium 8.2 L Magnesium 2.2 Total Bilirubin 0.8 AST 39 H ALT 32 Alkaline Phosphatase 45 Troponin I 0.024 Total Protein 7.5 Albumin 3.6 Globulin 3.9 Albumin/Globulin Ratio 0.9 Procalcitonin Urine Color Urine Appearance Urine pH Ur Specific [place] Urine Protein Urine Glucose (UA) Urine Ketones Urine Blood Urine Nitrite Urine Bilirubin Urine Urobilinogen Ur Leukocyte Esterase Urine WBC (Auto) Urine RBC (Auto) U Hyaline Cast (Auto) U Epithel Cells (Auto) Urine Bacteria (Auto) Influ A Molecular Assay Influ B Molecular Assay Blood Type Antibody Screen 07/13/20 07/13/20 07/13/20 13:04 13:04 13:20 WBC RBC Hgb Hct MCV MCH MCHC RDW Std Deviation RDW Coeff of Anna Plt Count MPV Immature Gran % (Auto) Neut % (Auto) Lymph % (Auto) [place] % (Auto) Eos % (Auto) Baso % (Auto) Neut # (Auto) Lymph # (Auto) [place] # (Auto) Eos # (Auto) Baso # (Auto) Immature Gran # (Auto) Platelet Estimate PT INR APTT PTT Ratio Sodium Potassium Chloride Carbon Dioxide Anion Gap BUN Creatinine Est Cr Clr Drug Dosing Est GFR ( Amer) Est GFR (Non-Af Amer) BUN/Creatinine Ratio Glucose POC Glucose Estimat Average Glucose Hemoglobin A1c Lactate 1.0 Calcium Magnesium Total Bilirubin AST ALT Alkaline Phosphatase Troponin I Total Protein Albumin Globulin Albumin/Globulin Ratio Procalcitonin < 0.05 Urine Color Urine Appearance Urine pH Ur Specific [place] Urine Protein Urine Glucose (UA) Urine Ketones Urine Blood Urine Nitrite Urine Bilirubin Urine Urobilinogen Ur Leukocyte Esterase Urine WBC (Auto) Urine RBC (Auto) U Hyaline Cast (Auto) U Epithel Cells (Auto) Urine Bacteria (Auto) Influ A Molecular Assay Negative Influ B Molecular Assay Negative Blood Type Antibody Screen 07/13/20 07/13/20 07/14/20 17:15 21:20 03:22 WBC RBC Hgb Hct MCV MCH MCHC RDW Std Deviation RDW Coeff of Anna Plt Count MPV Immature Gran % (Auto) Neut % (Auto) Lymph % (Auto) [place] % (Auto) Eos % (Auto) Baso % (Auto) Neut # (Auto) Lymph # (Auto) [place] # (Auto) Eos # (Auto) Baso # (Auto) Immature Gran # (Auto) Platelet Estimate PT INR APTT PTT Ratio Sodium Potassium Chloride Carbon Dioxide Anion Gap BUN Creatinine Est Cr Clr Drug Dosing Est GFR ( Amer) Est GFR (Non-Af Amer) BUN/Creatinine Ratio Glucose POC Glucose 155 H Estimat Average Glucose Hemoglobin A1c Lactate Calcium Magnesium Total Bilirubin AST ALT Alkaline Phosphatase Troponin I Total Protein Albumin Globulin Albumin/Globulin Ratio Procalcitonin Urine Color Dark Yellow Urine Appearance Clear Urine pH 5.0 Ur Specific [place] 1.031 H Urine Protein 2+ H Urine Glucose (UA) Negative Urine Ketones 1+ H Urine Blood Negative Urine Nitrite Negative Urine Bilirubin Negative Urine Urobilinogen Negative Ur Leukocyte Esterase Negative Urine WBC (Auto) 1-5 Urine RBC (Auto) 0-4 U Hyaline Cast (Auto) 1-5 U Epithel Cells (Auto) 10-20 H Urine Bacteria (Auto) Negative Influ A Molecular Assay Influ B Molecular Assay Blood Type O Positive Antibody Screen NEGATIVE 07/14/20 07/14/20 07/14/20 06:12 06:12 06:12 WBC 2.06 L RBC 4.20 L Hgb 12.8 L Hct 37.3 L MCV 88.8 MCH 30.5 MCHC 34.3 RDW Std Deviation 43.9 RDW Coeff of Anna 13.4 Plt Count 99 L MPV 10.6 H Immature Gran % (Auto) 0.0 Neut % (Auto) 45.6 Lymph % (Auto) 33.5 [place] % (Auto) 20.9 Eos % (Auto) 0.0 Baso % (Auto) 0.0 Neut # (Auto) 0.94 L* Lymph # (Auto) 0.[address] [place] # (Auto) 0.43 Eos # (Auto) 0.00 Baso # (Auto) 0.00 Immature Gran # (Auto) 0.00 Platelet Estimate Decreased L PT INR APTT PTT Ratio Sodium 138 Potassium 3.7 Chloride 106 Carbon Dioxide 22 Anion Gap 10.0 BUN 31 H Creatinine 0.78 Est Cr Clr Drug Dosing 64.6 Est GFR ( Amer) 94.1 Est GFR (Non-Af Amer) 81.2 BUN/Creatinine Ratio 39.4 H Glucose 113 H POC Glucose Estimat Average Glucose 126 Hemoglobin A1c 6.0 H Lactate Calcium 8.0 L Magnesium Total Bilirubin 0.5 AST 35 ALT 27 Alkaline Phosphatase 33 L Troponin I Total Protein 6.0 L Albumin 2.8 L Globulin 3.2 Albumin/Globulin Ratio 0.9 Procalcitonin Urine Color Urine Appearance Urine pH Ur Specific [place] Urine Protein Urine Glucose (UA) Urine Ketones Urine Blood Urine Nitrite Urine Bilirubin Urine Urobilinogen Ur Leukocyte Esterase Urine WBC (Auto) Urine RBC (Auto) U Hyaline Cast (Auto) U Epithel Cells (Auto) Urine Bacteria (Auto) Influ A Molecular Assay Influ B Molecular Assay Blood Type Antibody Screen 07/14/20 07/14/20 08:11 11:59 WBC RBC Hgb Hct MCV MCH MCHC RDW Std Deviation RDW Coeff of [place] Plt Count MPV Immature Gran % (Auto) Neut % (Auto) Lymph % (Auto) [place] % (Auto) Eos % (Auto) Baso % (Auto) Neut # (Auto) Lymph # (Auto) [place] # (Auto) Eos # (Auto) Baso # (Auto) Immature Gran # (Auto) Platelet Estimate PT INR APTT PTT Ratio Sodium Potassium Chloride Carbon Dioxide Anion Gap BUN Creatinine Est Cr Clr Drug Dosing Est GFR ( Amer) Est GFR (Non-Af Amer) BUN/Creatinine Ratio Glucose POC Glucose 100 H 146 H Estimat Average Glucose Hemoglobin A1c Lactate Calcium Magnesium Total Bilirubin AST ALT Alkaline Phosphatase Troponin I Total Protein Albumin Globulin Albumin/Globulin Ratio Procalcitonin Urine Color Urine Appearance Urine pH Ur Specific [place] Urine Protein Urine Glucose (UA) Urine Ketones Urine Blood Urine Nitrite Urine Bilirubin Urine Urobilinogen Ur Leukocyte Esterase Urine WBC (Auto) Urine RBC (Auto) U Hyaline Cast (Auto) U Epithel Cells (Auto) Urine Bacteria (Auto) Influ A Molecular Assay Influ B Molecular Assay Blood Type Antibody Screen Medications Administered Current Inpatient Medications Acetaminophen (Acetaminophen 325 Mg Tab) 650 mg PO Q4H PRN PRN Reason: pain/fever Stop: 08/12/20 18:28 Al Hydrox/Mg Hydrox/Simethicone (Aluminum/Magnesium Susp 30 Ml Udc) 30 ml PO Q6H PRN PRN Reason: Dyspepsia Stop: 08/12/20 18:28 Albuterol (Albuterol Hfa 8 Gm Inhaler) 2 puffs INH Q6R EVIE Stop: 08/12/20 18:59 Last Admin: 07/14/20 07:55 Dose: 2 puffs Documented by: Ascorbic Acid (Ascorbic Acid 500 Mg Tab) 500 mg PO QAM EVIE Stop: 08/13/20 08:59 Last Admin: 07/14/20 08:46 Dose: 500 mg Documented by: Aspirin (Aspirin 81 Mg Ectab) 81 mg PO DAILY EVIE Stop: 08/13/20 08:59 Last Admin: 07/14/20 08:46 Dose: 81 mg Documented by: Cyanocobalamin (Cyanocobalamin 500 Mcg Tablet (Vitamin B-12)) 1,000 mcg PO DAILY EVIE Stop: 08/13/20 08:59 Last Admin: 07/14/20 08:46 Dose: 1,000 mcg Documented by: Dextrose (Dextrose 50% 50 Ml Syringe) 25 - 50 ml IV UD PRN; Protocol PRN Reason: Hypoglycemia Protocol Stop: 08/12/20 18:28 Enoxaparin Sodium (Enoxaparin Inj 30 Mg/0.3 Ml Syr) 30 mg SQ Q12H EVIE Stop: 08/12/20 19:59 Last Admin: 07/14/20 08:46 Dose: 30 mg Documented by: Finasteride (Finasteride 5 Mg Tab) 5 mg PO DAILY EVIE Stop: 08/13/20 08:59 Last Admin: 07/14/20 08:46 Dose: 5 mg Documented by: Fluticasone/Vilanterol (Fluticasone/Vilanterol 200/25mcg 14 Puffs/Inhaler) 1 puffs INH DAILY EVIE Stop: 08/13/20 08:59 Last Admin: 07/14/20 08:45 Dose: 1 puffs Documented by: Glucagon (Glucagon For Inj 1 Mg Vial) 1 mg SQ UD PRN; Protocol PRN Reason: Hypoglycemia Protocol Stop: 08/12/20 18:28 Glucose (Glucose 10 Tabs/Tube) 4 - 8 tabs PO UD PRN; Protocol PRN Reason: Hypoglycemia Protocol Stop: 08/12/20 18:28 Glucose (Glucose 40% Gel 15 Gm Tube) 15 - 30 gm PO UD PRN; Protocol PRN Reason: Hypoglycemia Protocol Stop: 08/12/20 18:28 Dexamethasone 6 mg/ Syringe 1.5 mls @ 1 mls/min IV DAILY EVIE Stop: 07/23/20 14:29 Last Admin: 07/14/20 08:45 Dose: 1 mls/min Documented by: Insulin Aspart (Insulin Aspart 100 Units/Ml 3 Ml Pen) 0 units SC ACHS EVIE Stop: 08/12/20 20:59 Last Admin: 07/14/20 08:48 Dose: Not Given Documented by: Lansoprazole (Lansoprazole 30 Mg Soltab) 30 mg PO QAM EVIE Stop: 08/12/20 18:28 Last Admin: 07/14/20 08:46 Dose: 30 mg Documented by: Magnesium Hydroxide (Magnesium Hydroxide Susp 30 Ml Udc) 30 ml PO Q6H PRN PRN Reason: Constipation Stop: 08/12/20 18:28 Memantine (Memantine Hcl 10 Mg Tab) 10 mg PO BID EVIE Stop: 08/12/20 20:59 Last Admin: 07/14/20 08:46 Dose: 10 mg Documented by: Miscellaneous (Carbohydrates For Hypoglycemia ) 15 - 30 gm PO UD PRN PRN Reason: Hypoglycemia Protocol Stop: 08/12/20 18:28 Montelukast Sodium (Montelukast Sodium 10 Mg Tablet) 10 mg PO HS EVIE Stop: 08/12/20 20:59 Last Admin: 07/13/20 19:43 Dose: 10 mg Documented by: Multivitamins (Multivitamin Tab) 1 tab PO QAM EVIE Stop: 08/13/20 08:59 Last Admin: 07/14/20 08:46 Dose: 1 tab Documented by: Multivitamins/Minerals (Cerovite Adv Formula Tab) 1 tab PO DAILY [facility] Stop: 08/13/20 08:59 Last Admin: 07/14/20 08:47 Dose: 1 tab Documented by: Ondansetron HCl (Ondansetron Inj 2 Mg/Ml 2 Ml Vial) 4 mg IV Q6H PRN PRN Reason: Nausea Stop: 08/12/20 18:28 Polyethylene Glycol (Polyethylene (Miralax) 17 Gm Pack) 17 gm PO DAILY PRN PRN Reason: Constipation Stop: 08/12/20 18:28 Sodium Chloride (Sodium Chloride 0.9% 10ml Flush) 30 ml IV Q24H [facility] Stop: 07/17/20 13:01 Tamsulosin HCl (Tamsulosin Hcl 0.4 Mg Cap) 0.4 mg PO DAILY [facility] Stop: 08/13/20 08:59 Last Admin: 07/14/20 08:46 Dose: 0.4 mg Documented by: Vitamin D (Cholecalciferol 1,000 Units 25 Mcg Tab) 1,000 units PO QAM [facility] Stop: 08/13/20 08:59 Last Admin: 07/14/20 08:46 Dose: 1,000 units Documented by: PG Care Time/CCT Total # of Minutes Spent Total Time Spent with Patient: Total time spent is greater than 50% in coordination of care (as documented) at patient's floor/unit and/or counseling patient: Coding Level of Care Code 98375 Subseq Hosp Care Lvl 3 Diagnoses COVID-19 U07.1 Hypoxia R09.02 Asthma J45.909 Benign prostatic hyperplasia with urinary obstruction N40.1; N13.8 Hyponatremia E87.1 Cognitive impairment R41.89 Mild acid reflux K21.9 Prediabetes R73.03 Vitamin D deficiency E55.9 First degree atrioventricular block I44.0 Thrombocytopenia D69.6 DVT prophylaxis Z29.9 Leukopenia D72.819
[2020-07-14] MEDS: SODIUM CHLORIDE 0.9% 10ML FLUSH IV SCH (13:09)
[2020-07-14] MEDS: MONTELUKAST SODIUM 10 MG TABLET PO SCH (20:39)
[2020-07-15] MEDS: ALBUTEROL HFA 8 GM INHALER INH SCH ×2 (01:47→08:11)
[2020-07-15] MEDS: INSULIN ASPART 100 UNITS/ML 3 ML PEN SC SCH ×4 (08:19→22:34)
[2020-07-15] MEDS ORDERED: ALBUTEROL HFA 8 GM INHALER INH PRN (08:26)
[2020-07-15] MEDS: ENOXAPARIN INJ 30 MG/0.3 ML SYR SQ SCH ×2 (08:49→21:25)
[2020-07-15] MEDS: FLUTICASONE/VILANTEROL 200/25MCG 14 PUFFS/INHALER INH SCH (08:50)
[2020-07-15] MEDS: FINASTERIDE 5 MG TAB PO SCH (08:50)
[2020-07-15] MEDS: MULTIVITAMIN TAB PO SCH (08:50)
[2020-07-15] MEDS: ASPIRIN 81 MG ECTAB PO SCH (08:50)
[2020-07-15] MEDS: LANSOPRAZOLE 30 MG SOLTAB PO SCH (08:50)
[2020-07-15] MEDS: MEMANTINE HCL 10 MG TAB PO SCH ×2 (08:50→21:25)
[2020-07-15] MEDS: ASCORBIC ACID 500 MG TAB PO SCH (08:50)
[2020-07-15] MEDS: TAMSULOSIN HCL 0.4 MG CAP PO SCH (08:50)
[2020-07-15] MEDS: CEROVITE ADV FORMULA TAB PO SCH (08:50)
[2020-07-15] MEDS: dexAMETHasone 6 MG in SYRINGE 0 ML IV SCH (08:50)
[2020-07-15] MEDS: CYANOCOBALAMIN 500 MCG TABLET (VITAMIN B-12) PO SCH (08:50)
[2020-07-15] MEDS: CHOLECALCIFEROL 1,000 UNITS 25 MCG TAB PO SCH (08:50)
--- NOTE | 2020-07-15 10:56 | Hospitalist Progress Note ---
Date of Service July 15, 2020 Assessment & Plan (1) COVID-19: Positive test 07/11/2020 but patient had symptoms 6 days prior to admission Now on room air -discontinue dexamethasone. Remdesivir discontinued yesterday Patient did receive convalescent plasma Continue to monitor supplemental oxygen requirement. Currently with SaO2 of 98% on room air Continue supportive care (2) Hypoxia: Resolved Most likely secondary to COVID-19 Chest x-ray was clear Follow expectantly (3) Asthma: No bronchospasm on examination Continue albuterol HFA (4) Benign prostatic hyperplasia with urinary obstruction: Continue tamsulosin and finasteride Currently no difficulty with urination We will follow Continue outpatient follow-up and management (5) Leukopenia: Most likely secondary to COVID-19 We will check CBC in the morning Afebrile (6) Hyponatremia: Within normal limits No further intervention required (7) Cognitive impairment: Continue memantine Confusion could be exacerbated from encephalopathy secondary to COVID-19 Continue to monitor and redirect as needed (8) Prediabetes: No insulin or oral agents used at home Hemoglobin A1c is 6.0% Continue NovoLog sliding scale insulin for hyperglycemia secondary to dexamethasone We will discontinue dexamethasone today Continue to monitor (9) Vitamin D deficiency: Continue vitamin D supplementation Outpatient monitoring (10) Thrombocytopenia: No active bleeding No medications currently to cause thrombocytopenia Most likely reactive to COVID-19 Check CBC tomorrow morning (11) DVT prophylaxis: Enoxaparin 30 mg SQ every 12 hours per Covid protocol Will discontinue on discharge Ambulate as tolerated Admission and Anticipated Discharge Date Admission Date: July 13, 2020 Subjective Attending: Dr. Yan Patient seen and examined at bedside. He is alert and oriented but still has some confusion. Is unclear that this is baseline or exacerbation from his Covid infection. He was admitted on 07/13/2020 with 6 days of symptoms. Positive Covid test on 07/11/2019. Brought into the emergency department after found with hypoxia and confusion. Today he does need to be reoriented at times. He denies any shortness of breath. He denies any fever or chills. He has no nausea or vomiting. He has no diarrhea. He does not complain of any loss of taste or smell. Chest x-ray was negative. Patient was started on remdesivir and dexamethasone. He also received convalescent plasma. The patient has no acute complaints. Review of Systems Review of Systems: All systems reviewed & are unremarkable except as noted in Subjective Physical Exam Physical Exam: GENERAL : No acute distress EYES: No icterus, gaze conjugate NOSE: No evidence of epistaxis MOUTH: No lesions or candidiasis NECK: Supple LUNGS: CTA B/L, no wheezes, rales or rhonchi HEART: Regular, rate controlled ABDOMEN: Soft, NT, ND, BS Present EXTREMITIES: No LE edema, pedal pulses intact NEURO: A&OX3. Confused but easily reoriented Results & Data Results & Data ([place]) Vital Signs (Past 12 Hours) Vital Signs Temp Pulse Pulse Pulse Resp BP BP 07/15/20 08:12 40 L 18 07/15/20 07:21 36.5 C 40 L 18 134/58 L 07/15/20 01:48 49 L 16 07/14/20 23:08 36.5 C 46 L 17 113/58 L Pulse Ox 07/15/20 08:12 98 07/15/20 07:21 95 07/15/20 01:48 97 07/14/20 23:08 95 Laboratory Results 07/14/20 06:12 07/14/20 06:12 07/13/20 13:04 Troponin I 0.024 Laboratory Tests 07/11/20 07/13/20 10:30 13:20 Nasopharyn COVID-19 PCR POSITIVE A* Influ A Molecular Assay Negative Influ B Molecular Assay Negative Diagnostic Findings XR chest 1V portable HISTORY: SEPSIS COMPARISON: Chest 12/01/2016. FINDINGS: The lungs are clear. Cardiac silhouette is normal in size. No pleural effusions. No pneumothorax. IMPRESSION: No acute process. Electronically signed by: Lester Hanks M.D. 07/13/2020 1:30 PM Treadmill Stress Echocardiogram 05/16/20 LVEF 50-55% No wall motion abnormality No significant valvular disease No induced ischemia PG Care Time/CCT Total # of Minutes Spent Total Time Spent with Patient: Total time spent is greater than 50% in co ordination of care (as documented) at patient's floor/unit and/or counseling patient: 35 minutes including 2 visits the patient and discussion with other providers Coding Level of Care Code 06840 Subseq Hosp Care Lvl 2 Diagnoses COVID-19 U07.1 Hypoxia R09.02 Asthma J45.909 Benign prostatic hyperplasia with urinary obstruction N40.1; N13.8 Leukopenia D72.819 Hyponatremia E87.1 Cognitive impairment R41.89 Prediabetes R73.03 Vitamin D deficiency E55.9 Thrombocytopenia D69.6 DVT prophylaxis Z29.9 Time Spent (min) 35
[2020-07-15] MEDS: SODIUM CHLORIDE 0.9% 10ML FLUSH IV SCH (12:19)
[2020-07-15 13:11] LABS: Hematocrit (blood only) 39.9 % (42-52); Hemoglobin 13.9 g/dL (14.0-18.0); Immature Granulocytes # (auto) 0.01 K/uL (0.00-0.02); Immature Granulocytes % (auto) 0.2 %; Lymphocytes # (auto) 0.64 K/uL (1.2-3.4); Lymphocytes % (auto) 9.7 %; Mean Corpuscular Hemoglobin 30.5 pg (25-34); Mean Corpuscular Hgb Conc 34.8 g/dL (32-36); Mean Corpuscular Volume 87.5 fL (80-100); Mean Platelet Volume 10.8 fL (7.4-10.4); Monocytes # (auto) 0.31 K/uL (0.11-0.59); Monocytes % (auto) 4.7 %; Neutrophils # (auto) 5.61 K/uL (1.4-6.5); Neutrophils % (auto) 85.4 %; Platelet Count 116 K/uL (130-400); RDW Coefficient of Variation 13.7 % (11.5-14.5); RDW Standard Deviation 43.6 fL (36.4-46.3); Red Blood Count 4.56 M/uL (4.7-6.1); White Blood Count 6.57 K/uL (4.8-10.8)
[2020-07-15 13:36] LABS: BUN Creatinine Ratio 37.8 (10-20); Calcium 8.7 mg/dl (8.5-10.1); Est GFR (African American) 99.5; Est GFR (Non-African American) 85.9; Potassium 3.9 mmol/L (3.5-5.1)
[2020-07-15] MEDS: NORMOSOL-R 1,000 ML IV SCH (14:43)
[2020-07-15] MEDS: MONTELUKAST SODIUM 10 MG TABLET PO SCH (21:25)
[2020-07-15] MEDS ORDERED: guaiFENesin 600 MG TABCR PO PRN (21:30)
[2020-07-15] MEDS: MELATONIN 3 MG TAB PO PRN (22:38)
[2020-07-16] MEDS: NORMOSOL-R 1,000 ML IV SCH ×2 (02:20→09:42)
[2020-07-16 06:56] LABS: Basophils # (auto) 0.01 K/uL (0-0.2); Basophils % (auto) 0.2 %; Eosinophils # (auto) 0.01 K/uL (0-0.5); Eosinophils % (auto) 0.2 %; Hematocrit (blood only) 38.3 % (42-52); Hemoglobin 12.9 g/dL (14.0-18.0); Immature Granulocytes # (auto) 0.02 K/uL (0.00-0.02); Immature Granulocytes % (auto) 0.5 %; Lymphocytes # (auto) 1.11 K/uL (1.2-3.4); Lymphocytes % (auto) 25.9 %; Mean Corpuscular Hgb Conc 33.7 g/dL (32-36); Mean Corpuscular Volume 89.1 fL (80-100); Mean Platelet Volume 10.8 fL (7.4-10.4); Monocytes # (auto) 0.34 K/uL (0.11-0.59); Monocytes % (auto) 7.9 %; Neutrophils % (auto) 65.3 %; Platelet Count 121 K/uL (130-400); RDW Coefficient of Variation 13.7 % (11.5-14.5); RDW Standard Deviation 44.8 fL (36.4-46.3); White Blood Count 4.29 K/uL (4.8-10.8)
[2020-07-16 07:23] LABS: BUN Creatinine Ratio 29.7 (10-20); Calcium 8.2 mg/dl (8.5-10.1); Creatinine Clr Calc Pharmacy 57.9 ml/min; Est GFR (African American) 89.9; Est GFR (Non-African American) 77.6; Potassium 4.1 mmol/L (3.5-5.1)
[2020-07-16] MEDS: INSULIN ASPART 100 UNITS/ML 3 ML PEN SC SCH ×4 (08:26→21:13)
[2020-07-16] MEDS: ENOXAPARIN INJ 30 MG/0.3 ML SYR SQ SCH ×2 (08:56→20:02)
[2020-07-16] MEDS: FINASTERIDE 5 MG TAB PO SCH (08:57)
[2020-07-16] MEDS: LANSOPRAZOLE 30 MG SOLTAB PO SCH (08:57)
[2020-07-16] MEDS: dexAMETHasone 6 MG in SYRINGE 0 ML IV SCH (08:57)
[2020-07-16] MEDS: MULTIVITAMIN TAB PO SCH (08:57)
[2020-07-16] MEDS: MEMANTINE HCL 10 MG TAB PO SCH ×2 (08:57→20:05)
[2020-07-16] MEDS: TAMSULOSIN HCL 0.4 MG CAP PO SCH (08:57)
[2020-07-16] MEDS: ASCORBIC ACID 500 MG TAB PO SCH (08:57)
[2020-07-16] MEDS: CYANOCOBALAMIN 500 MCG TABLET (VITAMIN B-12) PO SCH (08:57)
[2020-07-16] MEDS: CEROVITE ADV FORMULA TAB PO SCH (08:57)
[2020-07-16] MEDS: ASPIRIN 81 MG ECTAB PO SCH (08:57)
[2020-07-16] MEDS: CHOLECALCIFEROL 1,000 UNITS 25 MCG TAB PO SCH (08:57)
[2020-07-16] MEDS: FLUTICASONE/VILANTEROL 200/25MCG 14 PUFFS/INHALER INH SCH (08:58)
--- NOTE | 2020-07-16 18:18 | Hospitalist Progress Note ---
Date of Service July 16, 2020 Assessment & Plan (1) COVID-19: Positive test 07/11/2020 but patient had symptoms 6 days prior to admission Now on room air -discontinue dexamethasone. Remdesivir discontinued 07/14/2020 Patient did receive convalescent plasma Continue to monitor supplemental oxygen requirement. Currently saturating well on room air Continue supportive care Continue to ambulate in hallways as tolerated (2) Hypoxia: Resolved Most likely secondary to COVID-19 Chest x-ray was clear Follow expectantly (3) Asthma: No bronchospasm on examination Continue albuterol HFA (4) Benign prostatic hyperplasia with urinary obstruction: Continue tamsulosin and finasteride Currently no difficulty with urination We will follow Continue outpatient follow-up and management (5) Leukopenia: Most likely secondary to COVID-19 WBC 4.29. Platelet count 1 21,000 Afebrile (6) Hyponatremia: Sodium 139. Hold normal saline solution No further intervention required (7) Cognitive impairment: Continue memantine Confusion could be exacerbated from encephalopathy secondary to COVID-19 Continue to monitor and redirect as needed (8) Prediabetes: No insulin or oral agents used at home Hemoglobin A1c is 6.0% Continue NovoLog sliding scale insulin for hyperglycemia secondary to dex amethasone We will discontinue dexamethasone on discharge Continue to monitor (9) Vitamin D deficiency: Continue vitamin D supplementation Outpatient monitoring (10) Thrombocytopenia: No active bleeding No medications currently to cause thrombocytopenia Most likely reactive to COVID-19 Platelet count now 121,000 (11) DVT prophylaxis: Enoxaparin 30 mg SQ every 12 hours per Covid protocol Will discontinue on discharge Ambulate as tolerated Admission and Anticipated Discharge Date Admission Date: July 13, 2020 Subjective Attending: Dr. Yan Patient was seen and examined at bedside. He was to be discharged home today. However, his was admitted to room 304. Patient still has some baseline confusion/dementia. Unable to discharge safely home without family present. Patient has no acute complaints. He is doing well and aside from his 's admission, he is ready for discharge per his report. Review of Systems Review of Systems: All systems reviewed & are unremarkable except as noted in Subjective Physical Exam Physical Exam: GENERAL : No acute distress EYES: No icterus, gaze conjugate NOSE: No evidence of epistaxis MOUTH: No lesions or candidiasis NECK: Supple LUNGS: CTA B/L, no wheezes, rales or rhonchi HEART: Regular, rate controlled ABDOMEN: Soft, NT, ND, BS Present EXTREMITIES: No LE edema, pedal pulses intact NEURO: A&OX3 Results & Data Results & Data ([facility]) Vital Signs (Past 12 Hours) Vital Signs Temp Pulse Resp BP BP Pulse Ox 07/16/20 15:00 36.8 C 58 L 16 116/68 92 07/16/20 13:37 94 07/16/20 07:19 36.4 C L 41 L 122/70 97 Laboratory Results 07/16/20 05:53 07/16/20 05:53 Diagnostic Findings No new diagnostic imaging PG Care Time/CCT Total # of Minutes Spent Total Time Spent with Patient: Total time spent is greater than 50% in coordination of care (as documented) at patient's floor/unit and/or counseling patient:15 minutes Coding Level of Care Code 16620 Subseq Hosp Care Lvl 1 Diagnoses COVID-19 U07.1 Hypoxia R09.02 Asthma J45.909 Benign prostatic hyperplasia with urinary obstruction N40.1; N13.8 Leukopenia D72.819 Hyponatremia E87.1 Cognitive impairment R41.89 Prediabetes R73.03 Vitamin D deficiency E55.9 Thrombocytopenia D69.6 DVT prophylaxis Z29.9 Time Spent (min) 15
[2020-07-16] MEDS: MONTELUKAST SODIUM 10 MG TABLET PO SCH (20:05)
--- NOTE | 2020-07-17 00:02 | Electrocardiogram Report ---
Test Reason : Blood Pressure : / mmHG Vent. Rate : 052 BPM Atrial Rate : 052 BPM P-R Int : 230 ms QRS Dur : 092 ms QT Int : 484 ms P-R-T Axes : 044 010 030 degrees QTc Int : 450 ms Poor data quality, interpretation may be adversely affected Sinus bradycardia with 1st degree A-V block Low voltage QRS Nonspecific ST abnormality Abnormal ECG When compared with ECG of 13-JUL-2020 12:53, Nonspecific T wave abnormality now evident in Inferior leads Confirmed by Ru Aguilera ([id number]) on 07/17/2020 12:02:11 AM Referred By: REFERRED SELF Confirmed By:Ru Aguilera
--- NOTE | 2020-07-17 00:03 | Electrocardiogram Report ---
Test Reason : Blood Pressure : / mmHG Vent. Rate : 039 BPM Atrial Rate : 039 BPM P-R Int : 202 ms QRS Dur : 076 ms QT Int : 464 ms P-R-T Axes : 058 -01 022 degrees QTc Int : 373 ms Poor data quality, interpretation may be adversely affected Marked sinus bradycardia Abnormal ECG When compared with ECG of 15-JUL-2020 15:34, QT has shortened Confirmed by Ru Aguilera ([id number]) on 07/17/2020 12:03:00 AM Referred By: REFERRED SELF Confirmed By:Ru Aguilera
[2020-07-17] MEDS: MELATONIN 3 MG TAB PO PRN (00:40)
[2020-07-17] MEDS: INSULIN ASPART 100 UNITS/ML 3 ML PEN SC SCH ×2 (08:14→12:11)
[2020-07-17] MEDS: dexAMETHasone 6 MG in SYRINGE 0 ML IV SCH (09:06)
[2020-07-17] MEDS: ENOXAPARIN INJ 30 MG/0.3 ML SYR SQ SCH (09:06)
[2020-07-17] MEDS: FLUTICASONE/VILANTEROL 200/25MCG 14 PUFFS/INHALER INH SCH (09:06)
[2020-07-17] MEDS: MULTIVITAMIN TAB PO SCH (09:07)
[2020-07-17] MEDS: FINASTERIDE 5 MG TAB PO SCH (09:07)
[2020-07-17] MEDS: CHOLECALCIFEROL 1,000 UNITS 25 MCG TAB PO SCH (09:07)
[2020-07-17] MEDS: CYANOCOBALAMIN 500 MCG TABLET (VITAMIN B-12) PO SCH (09:07)
[2020-07-17] MEDS: ASPIRIN 81 MG ECTAB PO SCH (09:07)
[2020-07-17] MEDS: LANSOPRAZOLE 30 MG SOLTAB PO SCH (09:07)
[2020-07-17] MEDS: TAMSULOSIN HCL 0.4 MG CAP PO SCH (09:07)
[2020-07-17] MEDS: ASCORBIC ACID 500 MG TAB PO SCH (09:07)
[2020-07-17] MEDS: MEMANTINE HCL 10 MG TAB PO SCH (09:07)
[2020-07-17] MEDS: CEROVITE ADV FORMULA TAB PO SCH (09:07)
--- NOTE | 2020-07-17 12:02 | Discharge Summary ---
Date of Service July 17, 2020 Admission HPI Per Admitting Provider This patient is an 85-year-old male with a history of prediabetes, asthma, GERD, vitamin D deficiency, infectious discitis, BPH, and mild cognitive impairment, who presents to the ER at the encouragement of his daughter who is a maid housekeeper after finding out today that he had a positive Covid-19 test as well as increasing confusion. He has had symptoms for 6 days that started with fever and fatigue, bronchitis type cough and runny nose, some mild diarrhea and some generalized weakness. The patient has some mild cognitive impairment and increased confusion, but when I asked how he feels, he states "I feel like I am floating." He also reports otherwise that he feels fine, but that if he try to get out of the bed he thinks he would probably just fall over on the floor. The PCP called to inform the patient of his positive result today and spoke with the on the phone. The patient's daughter came into town today and is a physician and called for EMS to bring him to the ER for increasing confusion. He was found to be mildly hypoxic at 88% on room air. He was placed on 2 L of oxygen and given a dose of dexamethasone as well as Remdesivir. He was also given 1 L of normal saline and Tylenol as he was febrile in the ER. He was found to have abnormal laboratory values with a sodium of 129, BUN mildly elevated at 30, and leukopenia with a WBC count of 3.22 as well as mildly low platelets at 103. AST is mildly elevated at 39. Troponin was slightly detectable but within normal range at 0.024. A procalcitonin was negative. A flu swab was also checked which was negative. His chest x-ray was clear. He will be admitted for Covid-19 with hypoxia. Admission Exam Per Admitting Provider Constitutional: WD/WN, vitals as above Eyes: PERRL, conjunctivae normal, anicteric sclerae ENMT: external ear and nose normal, oropharynx normal Neck: trachea midline, no thyromegaly Respiratory: normal respiratory effort Auscultation: + wheezes (A few scattered expiratory wheezes at the bases); no crackles Cardiovascular: RRR, no murmur, no edema Chest (Breasts): Chest: normal inspection of chest Gastrointestinal (Abdomen): normal bowel sounds, soft, nontender, no hepatosplenomegaly Musculoskeletal: Extremities: extremities normal to inspection; no cyanosis and no clubbing Skin: no rashes, warm and dry Neurologic: moves all extremities and awake; no focal motor deficits Psychiatric: Orientation: alert, oriented to person and cooperative; + not oriented to place and + not oriented to time Eye Contact: good eye contact Speech: normal rate/rhythm/volume of speech Affect: euthymic affect Lymphatic: no lymphedema Principal Diagnosis COVID-19 pneumonia Discharge Exam GENERAL : No acute distress. Pleasant. Talkative EYES: No icterus, gaze conjugate NOSE: No evidence of epistaxis MOUTH: No lesions or candidiasis. Mucosa moist. Tongue midline NECK: Supple LUNGS: CTA B/L, no wheezes, rales or rhonchi. Good inspiratory effort HEART: Regular, rate controlled ABDOMEN: Soft, NT, ND, BS Present EXTREMITIES: No LE edema, pedal pulses intact and equal bilaterally NEURO: A&OX3. Some confusion. This seems to be improved from yesterday. Discharge Data Allergies Allergy/AdvReac Type Severity Reaction Status Date / Time No Known Drug Allergies Allergy Verified 07/13/20 14:09 Consultations 07/13/20 14:56 ED Decision to Admit Stat 07/13/20 18:29 Consult Case Management - Discharge Planning Routine Ordered Studies 07/16/20 05:53 07/16/20 05:53 XR chest 1V portable HISTORY: SEPSIS COMPARISON: Chest 12/01/2016. FINDINGS: The lungs are clear. Cardiac silhouette is normal in size. No pleural effusions. No pneumothorax. IMPRESSION: No acute process. Electronically signed by: Lester Hanks M.D. 07/13/2020 1:30 PM Diabetes Follow up Hemoglobin A1c 6.0% Hospital Course (1) COVID-19: Positive test 07/11/2020 but patient had symptoms 6 days prior to admission Now on room air -discontinue dexamethasone. Remdesivir discontinued 07/14/2020 Patient did receive convalescent plasma Pulse oximetry was monitored during this hospital stay. Patient has been oxy genating well on room air for the last 3 days. Continue supportive care Continue to ambulate as tolerated Continue incentive spirometry on discharge (2) Hypoxia: Resolved Most likely secondary to COVID-19 Chest x-ray was clear Follow expectantly (3) Asthma: No bronchospasm on examination Continue albuterol HFA (4) Benign prostatic hyperplasia with urinary obstruction: Continue tamsulosin and finasteride Currently no difficulty with urination Continue outpatient follow-up and management (5) Leukopenia: Most likely secondary to COVID-19 WBC 4.29. Platelet count 121,000 Afebrile (6) Hyponatremia: Sodium 139. Follow routine maintenance labs as an outpatient (7) Cognitive impairment: Continue memantine Confusion could be exacerbated from encephalopathy secondary to COVID-19 Continue to monitor and redirect as needed The patient's daughter spoke with case management and stated that his mentation seemed to be at baseline Arrangements are in order for some assistance at home (8) Prediabetes: No insulin or oral agents used at home Hemoglobin A1c is 6.0% NovoLog sliding scale insulin for hyperglycemia while inpatient We will discontinue dexamethasone and insulin on discharge (9) Vitamin D deficiency: Continue vitamin D supplementation Outpatient monitoring (10) Thrombocytopenia: No active bleeding No medications currently to cause thrombocytopenia Most likely reactive to COVID-19 Platelet count now 121,000 (11) DVT prophylaxis: Enoxaparin 30 mg SQ every 12 hours per Covid protocol Will discontinue on discharge Ambulate as tolerated Total Time Total Time Spent Total Time Spent (In Minutes): 40 minutes Total Time Includes: Examination of the Patient, Discharge Planning, Medication Reconciliation and Communication With Other Providers Discharge Plan Discharge Items Patient Disposition: Home - Home Health Services Reason For Visit: COVID-19, HYPOXIA Discharge Diagnosis: COVID-19 pneumonia Hypoxia Activity: Resume your previous activity Lifting: Gradually increase as tolerated Bathing: No limitations Sexual Activity: When tolerated Driving/Machine Use: Do not recommend driving until cleared by family doctor or daughter Weightbearing: Full weightbearing Non-emergency contact: Primary Care Provider Call non-emergency contact if: you have any medication questions, your symptoms worsen and you have a fever Follow-up/Referrals: Gregorio Rinaldi MD [Primary Care Provider] - 07/22/20 4:00 pm Diet: Carb Consistent or DM2 Diet Texture: Easy to Chew Addtl Attending Provider Instructions: You were admitted with COVID-19 infection and found to have pneumonia. You were given dexamethasone (steroids) until your hypoxia resolved. You also received remdesivir which is an antiviral drug. This was discontinued on 07/14/2020. At the time of admission you also consented to receive convalescent plasma. This was transfused on 07/15/2020 and you had no reaction to this blood product. For the last 3 days, your oxygen level has been adequate on room air and you have not had any further fever. You had a low white count and a low platelet count. These are both now improving but should be followed by your primary care physician. As a result of being on a steroid, your sugar levels were higher than normal and you were placed on insulin while you were in the hospital. You will not receive any steroids as an outpatient. You should continue to follow with your family doctor regarding development of early diabetes. Your he moglobin A1c was 6.0%. Because COVID-19 is an inflammatory disease, it can cause blood clots in the legs and the lungs. To help protect you against this, you were given blood thinner (enoxaparin) twice a day while inpatient. This will be discontinued as an outpatient. If you should develop swelling that is unusual or asymmetrical in your legs ankles or feet or if you should have sudden shortness of breath, please go to the emergency department or contact your family doctor immediately. Pending Studies at Discharge: No Stand-Alone Forms: [facility] Medications and DC Order Prescriptions: Continued montelukast 10 mg tablet 10 mg PO QAM Qty: 90 RF: 3 lansoprazole 30 mg capsule,delayed release(DR/EC) 30 mg PO QAM Qty: 90 RF: 3 memantine 10 mg tablet 10 mg PO BID Qty: 180 RF: 1 ascorbic acid (vitamin C) 500 mg tablet 500 mg PO QAM RF: 0 multivitamin tablet 1 tab PO QAM RF: 0 tamsulosin 0.4 mg capsule 0.4 mg PO DAILY Qty: 90 RF: 3 finasteride 5 mg tablet 5 mg PO DAILY Qty: 90 RF: 3 cholecalciferol (vitamin D3) 1,000 unit capsule 1,000 units PO QAM RF: 0 vitamins A,C,Y-fioj-qluluu [id number] zmja-mn-gejk tablet 1 tab PO DAILY RF: 0 cetirizine [Zyrtec] 10 mg Tablet 10 mg PO DAILY PRN (Reason: Allergy Symptoms) RF: 0 famotidine 40 mg tablet 40 mg PO DAILY RF: 0 cyanocobalamin (vitamin B-12) [Vitamin B-12] 1,000 mcg Tablet 1,000 mcg PO DAILY RF: 0 fexofenadine 180 mg Tablet 180 mg PO DAILY PRN (Reason: Allergy Symptoms) RF: 0 aspirin 81 mg Tablet,Delayed Release (Dr/Ec) 81 mg PO DAILY RF: 0 wheat dextrin 3 gram/3.5 gram Powder 1 packet PO DAILY RF: 0 No Action albuterol sulfate 90 mcg/actuation HFA aerosol inhaler 1 - 2 inh INH Q4H PRN (Reason: shortness of breath or wheezing) Qty: 18 RF: 6 fluticasone propion-salmeterol 500-50 mcg/dose blister with device 1 inh inhalation BID Qty: 1 RF: 5 Discharge Orders: Discharge Order (Routine); Ordered 07/17/20 Ordered By: George Morgan/Other Patient Handouts: Preventing the Spread of ..., Dealing With the Stress of ... Admission Data Admit Date/Time: 07/13/20 15:57 Attending Provider: Mirza Yan Admit Provider: Yvette Thornton Primary Care Provider: Gregorio Rinaldi Other Providers: Yvette Thornton ; [facility] Other Interventions: Discharge Summary Assessment (RN) Last Done: 07/17/20 12:12 Supervising Physician Co-Signing Physician Notes Patient seen and examined on the day of discharge. I agree with the discharge summary by George MICHELLE. I have reviewed the chart including labs, imaging an d plans for discharge. patient doing much better, less confusion, breathing well on room air, eating and drinking well - COVID 19 infection: no hypoxemia, no need for dexamethasone or Remdesivir, did get plasma on admission no fever, vitals and labs stable discharge to home - Cognitive impairment: he is at baseline, got a little worse at times while in the hospital due to unfamiliar environment and infection continue memantine his daughter has arranged care givers and she will be visiting his in currently hospitalized with COVID and diarrhea Coding Level of Care Code D/C Day Management >30 mins Diagnoses COVID-19 U07.1 Hypoxia R09.02 Asthma J45.909 Benign prostatic hyperplasia with urinary obstruction N40.1; N13.8 Leukopenia D72.819 Hyponatremia E87.1 Cognitive impairment R41.89 Prediabetes R73.03 Vitamin D deficiency E55.9 Thrombocytopenia D69.6 DVT prophylaxis Z29.9 Time Spent (min) 40
--- NOTE | 2020-07-29 08:29 | Coding Query ---
PRESENT ON ADMISSION QUERY To promote full compliance with coding requirements relating to pateint care, physician participation is requested in all cases of entry level programmer uncertainty. Please assist us with the question(s) below: Please place an X within the parenthesis (x). The following diagnosis listed in this patient's medical record requires physician assistance to determine if they were present on admission (POA) or not. Please advise for each diagnosis whether it was present on admission, not present on admission, or if it was clinically undetermined. 1. Covid Pneumonia, documented on DC summary only ( x) Present On Admission ( ) Not Present On Admission ( ) Clinically Undetermined Thank you! Casie Morales *Definition of the present on admission (POA)-Present on admission is defined as present at the time the order for inpatient admission occurs. Conditions that develop during an outpatient encounter prior to a written order for inpatient admission (including emergency department, observation, or outpatient surgery) are considered present on admission. MTDD
== END 2020-07-17 14:50 | disposition home health service (06) | DRG 177 ==
LOC: ED 12:47 → SUATTDRO 15:57 → 3E 15:57

== ENCOUNTER 2020-09-11 13:18 | Observation (INO) ==
[2020-09-11 13:50] LABS: Basophils # (auto) 0.05 K/uL (0-0.2); Basophils % (auto) 0.8 %; Eosinophils # (auto) 0.65 K/uL (0-0.5); Hematocrit (blood only) 43.9 % (42-52); Hemoglobin 14.9 g/dL (14.0-18.0); Immature Granulocytes # (auto) 0.01 K/uL (0.00-0.02); Immature Granulocytes % (auto) 0.2 %; Lymphocytes # (auto) 1.41 K/uL (1.2-3.4); Lymphocytes % (auto) 23.8 %; Mean Corpuscular Hemoglobin 30.7 pg (25-34); Mean Corpuscular Hgb Conc 33.9 g/dL (32-36); Mean Corpuscular Volume 90.3 fL (80-100); Monocytes # (auto) 0.39 K/uL (0.11-0.59); Monocytes % (auto) 6.6 %; Neutrophils # (auto) 3.42 K/uL (1.4-6.5); Neutrophils % (auto) 57.6 %; Platelet Count 146 K/uL (130-400); RDW Coefficient of Variation 14.5 % (11.5-14.5); RDW Standard Deviation 47.8 fL (36.4-46.3); Red Blood Count 4.86 M/uL (4.7-6.1); White Blood Count 5.93 K/uL (4.8-10.8)
[2020-09-11 14:07] LABS: Alanine Aminotransferase 30 U/L (12-78); Aspartate Aminotransferase 26 U/L (15-37); Blood Urea Nitrogen 16 mg/dl (7-18); Calcium 9.5 mg/dl (8.5-10.1); Carbon Dioxide 28 mmol/L (21-32); Chloride 107 mmol/L (98-107); Est GFR (African American) 88.7; Est GFR (Non-African American) 76.5; Glucose 103 mg/dl (70-99); Lipase 217 U/L (73-393); Potassium 3.9 mmol/L (3.5-5.1); Sodium 139 mmol/L (136-145)
--- NOTE | 2020-09-11 14:08 | Emergency Department Note ---
Impression & Plan Left-sided chest pain ED Provider Note INFORMANT: Patient ED PROVIDER(S): Mark Page MD CHIEF COMPLAINT: Left-sided chest pain PLAN: Disposition: Admitted Condition: Good Outpatient prescription management: none Referral: None MEDICAL DECISION MAKING: Patient presented to emergency department complaining of chest pain. His ECG showed a sinus bradycardia. Chest x-ray and blood work were performed. His chest x-ray was unremarkable. CBC and chemistry panel negative. LFTs negative. Patient D-dimer was mildly elevated. Troponin was negative. He underwent CT imaging. I did discuss his case at his request with his daughter who is a physician. Request was made to image his head due to his symptoms of lightheadedness as well as his abdomen pelvis. He has a significant history of diverticulitis. CT imaging of the head, chest abdomen and pelvis were performed. These were negative. No pulmonary bullae seen. The patient was given oral aspirin. I discussed further management in the hospital given his chest pain. The patient did have a second brief episode of chest pain and ECG was unchanged. Consultation was made with Dr. Cantu the hospitalist service. Patient was evaluated in the ER admitted for further management. Triage Nursing notes reviewed and agree them. Additional history obtained from patient's Vital Signs: reviewed and remarkable for no significant abnormalities Differential diagnosis: Cardiac ischemia, aortic dissection, pulmonary embolism, pneumothorax, p neumonia, pericarditis, myocarditis, esophageal rupture, GERD, cholecystitis, pancreatitis, musculoskeletal, as well as other pathologies. Diagnostics interpreted by me: ECG: Twelve-lead ECG reveals sinus bradycardia 57 bpm. First-degree AV block. Left axis deviation. No ST elevation or depression. No PACs or PVCs. Twelve-lead ECG #2 reveals sinus bradycardia with first-degree AV block at [address] elevation or depression. No PVCs or PACs. When compared to ECG #1 there is no change. Indication: Recurrent chest pain Cardiac Monitoring: Cardiac monitoring ordered by me: The patient was placed on continuous cardiac monitoring and observed. It revealed a normal sinus rhythm at 80 beats per minute without ectopy or evidence of dysrhythmia. Imaging studies: Chest x-ray. Findings: A chest x-ray was performed and revealed no pneumothorax, effusion, infiltrate, pulmonary edema, free air under the diaphragm, or wide mediastinum. Impression: No acute disease. CT scan of the chest abdomen pelvis and CT scan of the head were negative for acute pathology. Consultation(s): [facility] service HPI: The patient is a 85 year old male who presents to the Emergency Room with complaints of left-sided chest pain. This started today around 1030 and is currently resolved. The patient also notes the following associated symptoms, feeling fatigued and mildly short of breath. The patient has taken no medication for relieving factors. Current pain is rated as 0/10. Patient notes pain was about a 3 out of 10. Pt denies LOC, headache, fevers, chills, diaphoresis, visual changes, neck pain, nausea, vomiting, abdominal pain, back pain, melena, hematochezia, urinary symptoms, numbness, weakness, lymphadenopathy, rash, or other complaints. ROS: See above HPI for pertinent positives & negatives. A total of 10 systems reviewed and were otherwise negative. PAST MEDICAL HISTORY:See Below , COVID-19 PAST SURGICAL HISTORY:See Below, FAMILY HISTORY:See Below SOCIAL HISTORY:See Below, HOME MEDICATIONS:See Below ALLERGIES:See Below VITALS:See Below PHYSICAL EXAMINATION: GENERAL: Awake, alert, well-appearing, in no distress HENT: Normocephalic, atraumatic. Oropharynx unremarkable. EYES: Normal conjunctiva. Sclera non-icteric. NECK: Inspection normal. Non-tender. Supple. No nuchal rigidity. FROM. No masses. RESPIRATORY: Clear to auscultation. No wheezes. No rales. Normal respiratory effort. CARDIAC: Normal rate. Normal rhythm. No murmurs. No rubs. Extremities warm and well perfused. Pulses equal. No JVD. GI: Soft, non-distended. No tenderness to palpation. No rebound or guarding. No masses. RECTAL: Deferred. MUSCULOSKELETAL: Atraumatic. Chest examination reveals no tenderness. The back is symmetrical on inspection without obvious abnormality. There is no CVA tenderness to palpation. No joint edema. LOWER EXTREMITIES: Calves are equal size bilaterally and non-tender. No edema. No discoloration. NEURO: Normal sensorium. No sensory or motor deficits noted. SKIN: No rash or jaundice noted. Mark Page MD Past Med/Surg History Medical History Adenomatous polyp of colon Arthritis Asthma Asthma Benign prostate hyperplasia Bronchitis Cognitive impairment First degree atrioventricular block Hearing loss Hypoxia Infectious discitis MCI (mild cognitive impairment) Mild acid reflux Prediabetes Vitamin D deficiency Surgical History History of prostate biopsy S/P cataract surgery S/P cholecystectomy S/P foot surgery Family History Mother Cancer Father Dementia Other Heart disease No family history of adverse response to anesthesia No family history of bleeding disorder Denies family history of Crohn's disease Colorectal cancer Social History Smoking Status: Former smoker Age Quit Using Tobacco: 44; Second Hand Exposure: No; Hx Alcohol Use: Yes Alcohol type: wine Hx Substance Use: No Preferred Language: Ethiopian Communication Ability: Effective Visual Impairment: No Limitations Hearing Ability: Normal Community Development Coordinator Required: No Beliefs That Will Affect Care: None marital status: Current Living Situation: Spouse current occupational status: retired Feels Safe at Home: Yes Dental Care, Regularly: Yes Physical Activity Frequency: Daily Physical Activity Frequency Comment: walking Seatbelt Use: always Sunscreen Use: Yes Assistive Devices: Glasses, Hearing Aid - Left and Hearing Aid - Right Allergies Allergies Allergy/AdvReac Type Severity Reaction Status Date / Time No Known Drug Allergies Allergy Unknown Verified 09/11/20 16:09 Home Meds Home Medications Medication Instructions Recorded Confirmed cholecalciferol (vitamin D3) 25 1,000 units PO QAM 02/19/19 09/11/20 mcg (1,000 unit) capsule ascorbic acid (vitamin C) 500 mg 500 mg PO QAM tab 04/23/19 09/11/20 tablet multivitamin 1 tab PO QAM 04/23/19 09/11/20 vitamins A,C,T-ldui-jobanr 7,160 1 tab PO DAILY tab 05/18/19 09/11/20 unit-113 mg-100 unit tablet cyanocobalamin (vitamin B-12) 1,000 mcg PO DAILY 07/13/20 09/11/20 [Vitamin B-12] fexofenadine 180 mg PO DAILY PRN 07/13/20 09/11/20 wheat dextrin 1 packet PO DAILY 07/13/20 09/11/20 Previous Rx's Medication Instructions Recorded montelukast 10 mg tablet 10 mg PO QAM #90 tab 08/27/19 tamsulosin 0.4 mg capsule 0.4 mg PO DAILY #90 cap 09/18/19 lansoprazole 30 mg capsule,delayed 30 mg PO QAM #90 cap 09/25/19 release memantine 10 mg tablet 10 mg PO BID #180 tab 04/29/20 albuterol sulfate 90 mcg/actuation 1 - 2 inh INH Q4H PRN #18 gm 07/18/20 aerosol inhaler fluticasone 500 mcg-salmeterol 50 1 inh INHALATION BID #1 ea 07/18/20 mcg/dose blistr powdr for inhalation famotidine 40 mg tablet 40 mg PO DAILY #90 tab 08/29/20 finasteride 5 mg tablet 5 mg PO DAILY #90 tab 09/05/20 Results & Data (ED) Vital Signs Vital Signs - 24 hr 09/11/20 13:20 09/11/20 14:46 09/11/20 15:46 Temperature 36.3 C L Temperature Source Temporal Artery Scan Pulse Rate 80 65 49 L Pulse Rate from SpO2 Sensor 65 54 L Pulse Rhythm Regular Pulse Strength Normal Respiratory Rate 16 23 15 Respiratory Effort / Characteristics Non-Labored Respiratory Depth Normal Respiratory Pattern Regular Blood Pressure 143/79 H 132/81 117/61 Blood Pressure Mean 100 98 79 Blood Pressure Position Sitting Pulse Oximetry 96 96 96 Oxygen Delivery Method Room Air Sepsis Recent Fever Within 48 Hours No Sepsis New/Unexplained Change in Mental Status N/A Sepsis Action Taken by Nursing No Action Required Laboratory Data Result diagrams: 09/11/20 13:37 09/11/20 13:37 Lab Results 09/11/20 09/11/20 09/11/20 Range/Units 13:37 13:37 13:37 WBC 5.93 (4.8-10.8) K/uL RBC 4.86 (4.7-6.1) M/uL Hgb 14.9 (14.0-18.0) g/dL Hct 43.9 (42-52) % MCV 90.3 (80-100) fL MCH 30.7 (25-34) pg MCHC 33.9 (32-36) g/dL RDW Std Deviation 47.8 H (36.4-46.3) fL RDW Coeff of Anna 14.5 (11.5-14.5) % Plt Count 146 (130-400) K/uL MPV 10.0 (7.4-10.4) fL Immature Gran % (Auto) 0.2 % Neut % (Auto) 57.6 % Lymph % (Auto) 23.8 % Washburn % (Auto) 6.6 % Eos % (Auto) 11.0 % Baso % (Auto) 0.8 % Neut # (Auto) 3.42 (1.4-6.5) K/uL Lymph # (Auto) 1.41 (1.2-3.4) K/uL [place]burn # (Auto) 0.39 (0.11-0.59) K/uL Eos # (Auto) 0.65 H (0-0.5) K/uL Baso # (Auto) 0.05 (0-0.2) K/uL Immature Gran # (Auto) 0.01 (0.00-0.02) K/uL D-Dimer 610 H* (0-500) ug/L FEU Sodium 139 (136-145) mmol/L Potassium 3.9 (3.5-5.1) mmol/L Chloride 107 (98-107) mmol/L Carbon Dioxide 28 (21-32) mmol/L Anion Gap 4.0 (3-11) BUN 16 (7-18) mg/dl Creatinine 0.90 (0.6-1.4) mg/dl Est Cr Clr Drug Dosing Not Reportable Est GFR ( Amer) 88.7 Est GFR (Non-Af Amer) 76.5 BUN/Creatinine Ratio 18.0 (10-20) Glucose 103 H (70-99) mg/dl Calcium 9.5 (8.5-10.1) mg/dl Total Bilirubin 0.7 (0.2-1) mg/dl AST 26 (15-37) U/L ALT 30 (12-78) U/L Alkaline Phosphatase 53 (45-117) U/L Troponin I < 0.015 (0-0.045) ng/ml Total Protein 7.4 (6.4-8.2) gm/dl Albumin 4.0 (3.4-5.0) gm/dl Globulin 3.4 (2.5-4.0) gm/dl Albumin/Globulin Ratio 1.2 (0.9-2) Lipase 217 (73-393) U/L COVID-19 Eval Order 09/11/20 Range/Units 16:53 WBC (4.8-10.8) K/uL RBC (4.7-6.1) M/uL Hgb (14.0-18.0) g/dL Hct (42-52) % MCV (80-100) fL MCH (25-34) pg MCHC (32-36) g/dL RDW Std Deviation (36.4-46.3) fL RDW Coeff of Anna (11.5-14.5) % Plt Count (130-400) K/uL MPV (7.4-10.4) fL Immature Gran % (Auto) % Neut % (Auto) % Lymph % (Auto) % [place] % (Auto) % Eos % (Auto) % Baso % (Auto) % Neut # (Auto) (1.4-6.5) K/uL Lymph # (Auto) (1.2-3.4) K/uL Washburn # (Auto) (0.11-0.59) K/uL Eos # (Auto) (0-0.5) K/uL Baso # (Auto) (0-0.2) K/uL Immature Gran # (Auto) (0.00-0.02) K/uL D-Dimer (0-500) ug/L FEU Sodium (136-145) mmol/L Potassium (3.5-5.1) mmol/L Chloride (98-107) mmol/L Carbon Dioxide (21-32) mmol/L Anion Gap (3-11) BUN (7-18) mg/dl Creatinine (0.6-1.4) mg/dl Est Cr Clr Drug Dosing Est GFR ( Amer) Est GFR (Non-Af Amer) BUN/Creatinine Ratio (10-20) Glucose (70-99) mg/dl Calcium (8.5-10.1) mg/dl Total Bilirubin (0.2-1) mg/dl AST (15-37) U/L ALT (12-78) U/L Alkaline Phosphatase (45-117) U/L Troponin I (0-0.045) ng/ml Total Protein (6.4-8.2) gm/dl Albumin (3.4-5.0) gm/dl Globulin (2.5-4.0) gm/dl Albumin/Globulin Ratio (0.9-2) Lipase (73-393) U/L COVID-19 Eval Order [facility] Administered Medications Discontinued Medications Ioversol (Optiray 320 125ml) 118 ml IV ONCE ONE Stop: 09/11/20 16:03 Last Admin: 09/11/20 16:02 Dose: 118 ml Documented by: [id number] Discharge Plan Visit Data Chief Complaint: Chest Pain Stated Complaint: CHEST PAIN ED Provider: Mark Page Discharge Problem: Left-sided chest pain Forms Stand Alone Forms: My [facility] [employer] Prescriptions Prescriptions: No Action montelukast 10 mg tablet 10 mg PO QAM Qty: 90 RF: 3 lansoprazole 30 mg capsule,delayed release(DR/EC) 30 mg PO QAM Qty: 90 RF: 3 memantine 10 mg tablet 10 mg PO BID Qty: 180 RF: 1 albuterol sulfate 90 mcg/actuation HFA aerosol inhaler 1 - 2 inh INH Q4H PRN (Reason: shortness of breath or wheezing) Qty: 18 RF: 6 fluticasone propion-salmeterol 500-50 mcg/dose blister with device 1 inh inhalation BID Qty: 1 RF: 5 famotidine 40 mg tablet 40 mg PO DAILY Qty: 90 RF: 3 finasteride 5 mg tablet 5 mg PO DAILY Qty: 90 RF: 3 ascorbic acid (vitamin C) 500 mg tablet 500 mg PO QAM RF: 0 multivitamin tablet 1 tab PO QAM RF: 0 tamsulosin 0.4 mg capsule 0.4 mg PO DAILY Qty: 90 RF: 3 cholecalciferol (vitamin D3) 1,000 unit capsule 1,000 units PO QAM RF: 0 vitamins A,C,Q-vqci-ipkxmm 7,160-113-100 ddry-lg-pqxp tablet 1 tab PO DAILY RF: 0 cyanocobalamin (vitamin B-12) [Vitamin B-12] 1,000 mcg Tablet 1,000 mcg PO DAILY RF: 0 fexofenadine 180 mg Tablet 180 mg PO DAILY PRN (Reason: Allergy Symptoms) RF: 0 wheat dextrin 3 gram/3.5 gram Powder 1 packet PO DAILY RF: 0
[2020-09-11 14:12] LABS: Albumin Globulin Ratio 1.2 (0.9-2); Alkaline Phosphatase 53 U/L (45-117); Bilirubin,Total 0.7 mg/dl (0.2-1); Globulin 3.4 gm/dl (2.5-4.0); Total Protein 7.4 gm/dl (6.4-8.2); Troponin I < 0.015 ng/ml (0-0.045)
--- NOTE | 2020-09-11 14:15 | XRay Report ---
XR chest 1V portable CLINICAL HISTORY: Atypical chest pain. COMPARISON STUDY: Chest radiograph July 13, 2020. FINDINGS: Lung volumes are normal. Lungs are clear. There is no pneumothorax or pleural effusion. Car diac size is normal. Mediastinal contours are normal. There is no evidence for pulmonary edema. IMPRESSION: No acute cardiopulmonary findings. ACT 112: Negative or not required by law. Electronically signed by: Damaso Vences M.D. 09/11/2020 2:14 PM
[2020-09-11 15:31] LABS: D Dimer 610 ug/L FEU (0-500)
[2020-09-11] MEDS ORDERED: OPTIRAY 320 125ml IV ONE (16:02)
--- NOTE | 2020-09-11 16:19 | CT Scan Report ---
CT SCAN OF THE BRAIN WITHOUT IV CONTRAST CLINICAL HISTORY: Headache. COMPARISON STUDY: CT of the brain dated 05/16/2019. TECHNIQUE: Unenhanced axial CT scan of the brain is performed from the vertex to the skull base. A do se lowering technique was utilized adhering to the principles of ALARA. FINDINGS: Brain parenchyma: There are age-related involutional changes noting moderate subcortical and periven tricular microangiopathic change. There is no hemorrhage, mass effect, or evidence of acute territori al ischemia by CT criteria. Mack-white matter differentiation is preserved. No extra-axial fluid mich ection is seen. Ventricles, sulci, cisterns: Prominent secondary to involutional change. Intracranial vasculature: There is atherosclerotic calcification of the cavernous carotid and vertebr al arteries. Calvarium: Unremarkable. Sinuses and mastoids: The visualized paranasal sinuses are clear. The mastoid air cells are well pneu matized. Orbits: The bony orbits are grossly intact. There are bilateral ocular lens implants. IMPRESSION: There is no hemorrhage, mass effect, or evidence of acute territorial ischemia by CT shyann diaz. ACT 112: Negative or not required by law. Electronically signed by: George Fernandez M.D. 09/11/2020 4:18 PM
--- NOTE | 2020-09-11 16:29 | CT Scan Report ---
CT ANGIOGRAM OF THE CHEST; CT SCAN OF THE ABDOMEN AND PELVIS WITH IV CONTRAST CLINICAL HISTORY: Atypical chest pain. Elevated d-dimer. Generalized abdominal pain. COMPARISON STUDY: Abdominal CT dated 07/06/2016. Chest x-ray dated 09/11/2020. TECHNIQUE: Following the IV administration of 118 of Optiray 320, CT angiogram of the chest is perfor med from the upper abdomen to the thoracic inlet utilizing the pulmonary embolus protocol. Images are reviewed in the axial, sagittal, coronal planes. 3-D MIPS images are created and assessed. Subsequen tly, CT scan of the abdomen and pelvis was performed from the lung bases to the proximal femora. Imag es are reviewed in the axial, sagittal, and coronal planes. IV contrast was administered without comp lication. A dose lowering technique was utilized adhering to the principles of ALARA. The examination s are degraded by motion artifact. CT DOSE: 2189.74 mGy.cm FINDINGS: CHEST: Thyroid: Imaged portions of the thyroid gland are normal in size and attenuation. Thoracic aorta: There is mild atherosclerotic calcification of the thoracic aorta, with is normal in caliber and demonstrates bovine variant arch anatomy. No dissection is seen. Pulmonary vasculature: The pulmonary trunk is normal in caliber. There are no filling defects identif ied in the main, lobar, or proximal segmental pulmonary arteries to indicate pulmonary embolus. Evalu ation of the peripheral branches is degraded by motion artifact. Heart: The heart is mildly enlarged and without pericardial effusion. Lungs and pleural spaces: Evaluation of the lung parenchyma is degraded by motion artifact. There is no airspace consolidation typical for pneumonia or pleural effusion. Foci of scarring/atelectasis are scattered throughout both lungs. The trachea and central airways are clear. Mediastinum: There is no mediastinal lymphadenopathy. Meron: Clear. Axillae: There is no axillary lymphadenopathy. Bony thorax: The skeletal structures are osteopenic. Degenerative change and hyperkyphosis are noted in the thoracic spine. Degenerative change is noted in the shoulders. No lytic or blastic lesions are identified. ABDOMEN AND PELVIS: Liver: The contrast-enhanced liver is normal in size, contour, and attenuation. There is no intrahepa tic or ductal dilatation. The hepatic veins and portal veins are patent. 2 left lobe cysts measure up to 1 cm. Gallbladder: Surgically absent noting clips in the gallbladder fossa. Spleen: Normal in size and attenuation. Pancreas: Mildly atrophic and grossly unremarkable. Adrenal glands: Unremarkable. Kidneys: The contrast enhanced kidneys demonstrate mild cortical atrophy and are without hydronephros is. The kidneys enhance symmetrically. A circumaortic left renal vein is incidentally noted. Right re nal cysts measure up to 2.6 cm. Abdominal vasculature: The abdominal aorta is normal in course and caliber noting moderate atheroscle rotic calcification. Stomach and bowel: There is a moderate hiatal hernia. There is moderate to advanced colonic diverticu losis without CT evidence of acute diverticulitis. No bowel obstruction is seen. Fecal retention is p resent throughout the colon. The appendix is not visualized. Peritoneum: There is no intraperitoneal free air or abdominal ascites. Lymphadenopathy: None. Pelvic viscera: The prostate gland is enlarged and heterogeneous noting median lobe hypertrophy. Ther e are numerous glandular calcifications. The bladder wall is thickened and trabeculated indicating ch ronic outlet obstruction. Tiny bladder diverticula are noted. Skeletal structures: The skeletal structures are osteopenic. There is mild to moderate lumbosacral sp ondylosis. No lytic or blastic lesions are seen. IMPRESSION: 1. Motion degraded examination. 2. There is no evidence of pulmonary embolus in the main, lobar, or proximal segmental pulmonary niall willis. 3. Cardiomegaly. 4. There is no airspace consolidation or pleural effusion. 5. There are no acute infectious or inflammatory findings in the abdomen or pelvis. 6. Advanced colonic diverticulosis without CT evidence of acute diverticulitis. 7. 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 8. Additional findings as above. ACT 112: Negative or not required by law. Electronically signed by: George Fernandez M.D. 09/11/2020 4:28 PM
[2020-09-11] MEDS ORDERED: ASPIRIN CHEW 324 MG PO STA (16:55)
--- NOTE | 2020-09-11 17:49 | History & Physical Report ---
Date of Service September 11, 2020 Assessment & Plan (1) Atypical chest pain: 85-year-old male with a past medical history significant for first-degree AV block, asthma, prediabetes, dementia admitted for chest pain rule out. Atypical chest pain with Hx 1st degree AV block: - Description of chest discomfort along the left chest, unclear if it worsens with palpation. - The description of "bubbling" could represent GERD however patient on PPI and Pepcid at home. Breakfast with orange juice and coffee could be recommended against to decrease GERD. - No twisting or injuries to chest that he recalls. - D dimer elevated, CTA Chest without pneumonia, PE, pleural effusion. - Trend troponins q8h, Echo AM. - Admit for observation, expect discharge tomorrow if troponins remain negative. - Given contrast received for multiple imaging studies, will repeat BMP in AM to evaluate renal function. - Incentive spirometer for possible atelectasis. Fatigue/Brain Fog with Hx dementia: - Presents with complaint of intermittent fatigue and sensation of brain fog. - Has a history of mild cognitive impairment with Mini Mental performed in 05/2020 score of 5. - CT Head without acute pathology. CBC without anemia. - Continue memantine 10mg BID. Asthma: - Not hypoxic in ED. - Continue home Advair, Singulair. PRN albuterol. - CTA Chest with foci of scarring/atelectasis noted, possible due to recent COVID 19 infection. - COVID 19 testing this admission negative. BPH: - No urinary complaints at this time. - Continue home tamsulosin and finasteride. Code Status: FULL CODE FEN: Regular diet DVT ppx: Heparin 5000u q12h Dispo: Med/Surg with Telemetry (2) Prediabetes: (3) Asthma: (4) First degree atrioventricular block: (5) Benign prostate hyperplasia: (6) Cognitive impairment: History of Present Illness Chief Complaint: Chest discomfort Primary Care Provider: Gregorio Rinaldi MD 85-year-old male with a past medical history significant for first-degree AV block, asthma, prediabetes, dementia presented to the ER for complaints of intermittent chest "discomfort" that is described as similar to a bubbling or mumbling or murmuring sensation that is uncomfortable in his left chest, with associated sensation of fatigue. He describes that he started to feel this around 11 AM this morning, and had it off and on all day. Did not seem to be exacerbated by activity, nor food. No trauma or falls injuring the left chest. Has had this sensation off and on since his discharge from [facility] in June for COVID-19, but the sensation seemed worse today. Was urged by his primary care provider to seek ER evaluation. In the ER patient had unremarkable CBC and BMP, negative troponin, mildly elevated D-dimer, Covid negative. CT head without acute pathology. CT abdomen, pelvis, chest without evidence of PE. Advanced colonic diverticulosis noted without diverticulitis. No pleural effusion or findings suggestive of pneumonia. Foci of scarring/atelectasis noted in both lungs. Given patient's description of chest discomfort, though atypical, hospitalist service was consulted for admission for chest pain work-up. On my interview patient denies active chest pain or discomfort, shortness of breath, nausea, recent fevers or chills, recent GI issues such as constipation or diarrhea, dysuria, hematuria, dizziness or headache. Patient admits to a history of intermittent dyspnea on exertion which he has had since childhood due to his history of asthma, for which he takes montelukast, Advair, and as needed albuterol. This is at his baseline currently. He does not wear oxygen at home. Of note, patient did undergo cardiac evaluation in April 2020 for vague complaints of left-sided chest pain and incidental finding of a first-degree AV block on EKG by PCP, had stress echo performed with low normal EF without angina during testing. Also had 24-hour Holter monitor which did not show any arrhythmia during that time. Has followed with Dr. Ricketts in the past for this, and was cleared from a cardiac perspective. Allergies Allergy/AdvReac Type Severity Reaction Status Date / Time No Known Drug Allergies Allergy Unknown Verified 09/11/20 16:09 Home Medications Medication Instructions Recorded Confirmed Type cholecalciferol (vitamin D3) 25 1,000 units PO QAM 02/19/19 09/11/20 History mcg (1,000 unit) capsule ascorbic acid (vitamin C) 500 mg 500 mg PO QAM tab 04/23/19 09/11/20 History tablet multivitamin 1 tab PO QAM 04/23/19 09/11/20 History vitamins A,C,F-jelt-kxafuo 7,160 1 tab PO DAILY tab 05/18/19 09/11/20 History unit-113 mg-100 unit tablet montelukast 10 mg tablet 10 mg PO QAM #90 tab 08/27/19 09/11/20 Rx tamsulosin 0.4 mg capsule 0.4 mg PO DAILY #90 cap 09/18/19 09/11/20 Rx lansoprazole 30 mg capsule,delayed 30 mg PO QAM #90 cap 09/25/19 09/11/20 Rx release memantine 10 mg tablet 10 mg PO BID #180 tab 04/29/20 09/11/20 Rx cyanocobalamin (vitamin B-12) 1,000 mcg PO DAILY 07/13/20 09/11/20 History [Vitamin B-12] fexofenadine 180 mg PO DAILY PRN 07/13/20 09/11/20 History wheat dextrin 1 packet PO DAILY 07/13/20 09/11/20 History albuterol sulfate 90 mcg/actuation 1 - 2 inh INH Q4H PRN #18 gm 07/18/20 09/11/20 Rx aerosol inhaler fluticasone 500 mcg-salmeterol 50 1 inh INHALATION BID #1 ea 07/18/20 09/11/20 Rx mcg/dose blistr powdr for inhalation famotidine 40 mg tablet 40 mg PO DAILY #90 tab 08/29/20 09/11/20 Rx finasteride 5 mg tablet 5 mg PO DAILY #90 tab 09/05/20 09/11/20 Rx Past Med/Surg History Medical History Adenomatous polyp of colon Arthritis Asthma Asthma Benign prostate hyperplasia Bronchitis Cognitive impairment First degree atrioventricular block Hearing loss Hypoxia Infectious discitis MCI (mild cognitive impairment) Mild acid reflux Prediabetes Vitamin D deficiency Surgical History History of prostate biopsy S/P cataract surgery S/P cholecystectomy S/P foot surgery Family History Mother Cancer Father Dementia Other Heart disease No family history of adverse response to anesthesia No family history of bleeding disorder Denies family history of Crohn's disease Colorectal cancer Social History Smoking Status: Current some day smoker Age Quit Using Tobacco: 44; Second Hand Exposure: No; Hx Alcohol Use: Yes Alcohol type: wine Hx Substance Use: No Preferred Language: Azeri Communication Ability: Effective Visual Impairment: No Limitations Hearing Ability: Normal Cash Specialist Required: No Beliefs That Will Affect Care: None marital status: Current Living Situation: Spouse current occupational status: retired Feels Safe at Home: Yes Dental Care, Regularly: Yes Physical Activity Frequency: Daily Physical Activity Frequency Comment: walking Seatbelt Use: always Sunscreen Use: Yes Assistive Devices: Denture - Upper, Denture - Lower, Glasses and Hearing Aid - Bilateral Review of Systems Review of Systems: All systems reviewed & are unremarkable except as noted in HPI & below Constitutional: no fever, no chills and no malaise Respiratory: no cough and no dyspnea Cardiovascular: no chest pain, no palpitations and no edema Gastrointestinal: no abdominal pain, no constipation and no diarrhea/loose stools Physical Exam Constitutional: WD/WN, vitals as above Eyes: PERRL, conjunctivae normal, anicteric sclerae ENMT: external ear and nose normal, oropharynx normal Neck: normal visual inspection Respiratory: normal respiratory effort; no respiratory distress Auscultation: + wheezes (intermittent expiratory); no crackles Cardiovascular: RRR, no murmur, no edema Gastrointestinal (Abdomen): normal bowel sounds, soft, nontender, no hepatosplenomegaly Musculoskeletal: no cyanosis or clubbing, extremities motor strength 5/5 Skin: no rashes, warm and dry Neurologic: AAOx3, normal speech. Tangential but redirectable. Bilateral UE, LE, and face without sensory or motor deficits. No tremor. Psychiatric: A+Ox3, euthymic affect Results & Data Results & Data ([facility]) Vital Signs (Past 12 Hours) Vital Signs Temp Pulse Resp BP Pulse Ox 09/11/20 17:31 60 18 157/79 H 98 09/11/20 17:01 58 L 21 119/61 96 09/11/20 15:46 49 L 15 117/61 96 09/11/20 14:46 65 23 132/81 96 09/11/20 13:20 36.3 C L 80 16 143/79 H 96 Code Status & VTE Plan VTE Prophylaxis Plan VTE Prophylaxis will be ordered: Yes Supervising Physician Co-Signing Physician Notes I personally saw and examined the patient. I verified all dyer points and agree with resident physician Dr Perkins with the following exceptions and/or additions: 85 year old male with brain fog episode and chest pain. Concern today because both came on at the same time. O/E HS RRR, no murmurs, Chest CTAB, Chest pain reproducible on exam, Abdo SNT. A/P Atypical chest pain - appears MSK given reproducible on exam, however given age and concern will observe overnight with serial troponins and TTE in AM Resident Activity Tracking Resident Involvement: Resident Care Provided Care Provided: Adult Hospital Medicine
[2020-09-11] MEDS ORDERED: POLYETHYLENE (MIRALAX) 17 GM PACK PO PRN (20:40)
[2020-09-11] MEDS ORDERED: ONDANSETRON INJ 2 MG/ML 2 ML VIAL IV PRN (20:40)
[2020-09-11] MEDS ORDERED: ACETAMINOPHEN 325 MG TAB PO PRN (20:40)
[2020-09-11] MEDS ORDERED: FEXOFENADINE HCL 180 MG TAB PO PRN (20:40)
[2020-09-11] MEDS ORDERED: ALBUTEROL HFA 8 GM INHALER INH PRN (20:40)
[2020-09-11] MEDS ORDERED: NITROGLYCERIN SL 0.4 MG/TAB TAB SL PRN (20:40)
[2020-09-11] MEDS: MEMANTINE HCL 10 MG TAB PO SCH (21:44)
[2020-09-11] MEDS: HEPARIN SOD 5,000 UNIT/0.5 ML VIAL SQ SCH (21:45)
[2020-09-11] MEDS ORDERED: COUGH DROP (SUGAR FREE) LOZ 24 LOZ/1 BOX BUCCAL PRN (22:26)
[2020-09-12 00:59] LABS: Hematocrit (blood only) 38.2 % (42-52); Hemoglobin 13.1 g/dL (14.0-18.0); Mean Corpuscular Hemoglobin 30.5 pg (25-34); Mean Corpuscular Hgb Conc 34.3 g/dL (32-36); Mean Corpuscular Volume 88.8 fL (80-100); Mean Platelet Volume 9.8 fL (7.4-10.4); Platelet Count 139 K/uL (130-400); RDW Coefficient of Variation 14.5 % (11.5-14.5); RDW Standard Deviation 47.1 fL (36.4-46.3); White Blood Count 6.18 K/uL (4.8-10.8)
[2020-09-12 01:16] LABS: BUN Creatinine Ratio 19.5 (10-20); Blood Urea Nitrogen 17 mg/dl (7-18); Calcium 8.2 mg/dl (8.5-10.1); Carbon Dioxide 30 mmol/L (21-32); Chloride 109 mmol/L (98-107); Creatinine Clr Calc Pharmacy 57.2 ml/min; Est GFR (African American) 89.5; Est GFR (Non-African American) 77.2; Glucose 129 mg/dl (70-99); Potassium 3.8 mmol/L (3.5-5.1); Sodium 143 mmol/L (136-145)
[2020-09-12 01:20] LABS: Troponin I < 0.015 ng/ml (0-0.045)
--- NOTE | 2020-09-12 07:29 | Hospitalist Progress Note ---
Date of Service September 12, 2020 Assessment & Plan (1) Atypical chest pain: 85-year-old male with a past medical history significant for first-degree AV block, asthma, prediabetes, dementia admitted for chest pain rule out. Atypical chest pain with Hx 1st degree AV block: - Description of chest discomfort along the left chest, unclear if it worsens with palpation. - The description of "bubbling" could represent GERD however patient on PPI and Pepcid at home. Breakfast with orange juice and coffee could be recommended against to decrease GERD. - No twisting or injuries to chest that he recalls. - D dimer elevated, CTA Chest without pneumonia, PE, pleural effusion. - Trend troponins q8h, Echo AM. - Admit for observation, expect discharge tomorrow if troponins remain negative. - Given contrast received for multiple imaging studies, will repeat BMP in AM to evaluate renal function. - Incentive spirometer for possible atelectasis. Fatigue/Brain Fog with Hx dementia: - Presents with complaint of intermittent fatigue and sensation of brain fog. - Has a history of mild cognitive impairment with Mini Mental performed in 05/2020 score of 5. - CT Head without acute pathology. CBC without anemia. - Continue memantine 10mg BID. Asthma: - Not hypoxic in ED. - Continue home Advair, Singulair. PRN albuterol. - CTA Chest with foci of scarring/atelectasis noted, possible due to recent COVID 19 infection. - COVID 19 testing this admission negative. BPH: - No urinary complaints at this time. - Continue home tamsulosin and finasteride. Code Status: FULL CODE FEN: Regular diet DVT ppx: Heparin 5000u q12h Dispo: Med/Surg with Telemetry (2) Prediabetes: (3) Asthma: (4) First degree atrioventricular block: (5) Benign prostate hyperplasia: (6) Cognitive impairment: Admission and Anticipated Discharge Date Admission Date: September 11, 2020 Review of Systems Review of Systems: Constitutional: Denies fever, chills, weight change Eyes: Denies blurry vision, vision changes ENT: Denies sore throat, sinus pain Cardiovascular: Denies chest pain, palpitations Respiratory: Denies shortness of breath Gastrointestinal: Denies abdominal pain, nausea, vomiting, constipation, diarrhea Genitourinary: Denies urinary symptoms including dysuria Musculoskeletal: Denies weakness, muscle aches/pain, joint aches/pain Neurological: Denies headache, numbness, tingling, focal weakness Physical Exam Physical Exam: General: Grossly A&O. NAD. Cooperative. HEENT: Atraumatic, normocephalic. EOMI Pulm: CTAB. -wheezes, -rales, -rhonchi. No respiratory distress. Cardiac: RRR, -mrg. Radial pulses intact and symmetrical. Abdominal: Nontender, nondistended, soft. Results & Data Results & Data ([facility]) Vital Signs (Past 12 Hours) Vital Signs Temp Pulse Pulse Resp BP Pulse Ox 09/12/20 07:25 42 L 09/12/20 03:38 37.1 C 45 L 18 115/63 96 09/12/20 02:10 51 L 09/11/20 23:23 37 C 60 18 104/57 L 91 09/11/20 20:40 36.3 C L 53 L 69 18 140/74 96 Resident Activity Tracking Resident Involvement: Resident Care Provided Care Provided: Adult Hospital Medicine
[2020-09-12] MEDS: MEMANTINE HCL 10 MG TAB PO SCH (08:21)
[2020-09-12] MEDS: HEPARIN SOD 5,000 UNIT/0.5 ML VIAL SQ SCH (08:24)
[2020-09-12] MEDS ORDERED: MULTIVITAMIN TAB PO SCH (09:00)
[2020-09-12] MEDS ORDERED: FLUTICASONE/VILANTEROL 200/25MCG 14 PUFFS/INHALER INH SCH (09:00)
[2020-09-12] MEDS ORDERED: TAMSULOSIN HCL 0.4 MG CAP PO SCH (09:00)
[2020-09-12] MEDS ORDERED: PANTOprazole 40 MG TAB PO SCH (09:00)
[2020-09-12] MEDS ORDERED: CEROVITE ADV FORMULA TAB PO SCH (09:00)
[2020-09-12] MEDS ORDERED: ASCORBIC ACID 500 MG TAB PO SCH (09:00)
[2020-09-12] MEDS ORDERED: ASPIRIN 81 MG ECTAB PO SCH (09:00)
[2020-09-12] MEDS ORDERED: FAMOTIDINE 40 MG TABLET PO SCH (09:00)
[2020-09-12] MEDS ORDERED: CYANOCOBALAMIN 500 MCG TABLET (VITAMIN B-12) PO SCH (09:00)
[2020-09-12] MEDS ORDERED: FINASTERIDE 5 MG TAB PO SCH (09:00)
[2020-09-12] MEDS ORDERED: MONTELUKAST SODIUM 10 MG TABLET PO SCH (09:00)
[2020-09-12] MEDS ORDERED: CHOLECALCIFEROL 1,000 UNITS 25 MCG TAB PO SCH (09:00)
--- NOTE | 2020-09-12 13:07 | XCELERA ---
[id number]
--- NOTE | 2020-09-12 16:12 | Billing Data ---
Date of Service September 11, 2020 Coding Level of Care Code 23999 OBS Care - Level 2
--- NOTE | 2020-09-12 18:25 | Discharge Summary ---
Date of Service September 12, 2020 Admission HPI Per Admitting Provider 85-year-old male with a past medical history significant for first-degree AV block, asthma, prediabetes, dementia presented to the ER for complaints of intermittent chest "discomfort" that is described as similar to a bubbling or mumbling or murmuring sensation that is uncomfortable in his left chest, with associated sensation of fatigue. He describes that he started to feel this around 11 AM this morning, and had it off and on all day. Did not seem to be exacerbated by activity, nor food. No trauma or falls injuring the left chest. Has had this sensation off and on since his discharge from [facility] in June for COVID-19, but the sensation seemed worse today. Was urged by his primary care provider to seek ER evaluation. In the ER patient had unremarkable CBC and BMP, negative troponin, mildly elevated D-dimer, Covid negative. CT head without acute pathology. CT abdomen, pelvis, chest without evidence of PE. Advanced colonic diverticulosis noted without diverticulitis. No pleural effusion or findings suggestive of pneumonia. Foci of scarring/atelectasis noted in both lungs. Given patient's description of chest discomfort, though atypical, hospitalist service was consulted for admission for chest pain work-up. On my interview patient denies active chest pain or discomfort, shortness of breath, nausea, recent fevers or chills, recent GI issues such as constipation or diarrhea, dysuria, hematuria, dizziness or headache. Patient admits to a history of intermittent dyspnea on exertion which he has had since childhood due to his history of asthma, for which he takes montelukast, Advair, and as needed albuterol. This is at his baseline currently. He does not wear oxygen at home. Of note, patient did undergo cardiac evaluation in April 2020 for vague complaints of left-sided chest pain and incidental finding of a first-degree AV block on EKG by PCP, had stress echo performed with low normal EF without angina during testing. Also had 24-hour Holter monitor which did not show any arrhythmia during that time. Has followed with Dr. Ricketts in the past for this, and was cleared from a cardiac perspective. Admission Exam Per Admitting Provider Constitutional: WD/WN, vitals as above Eyes: PERRL, conjunctivae normal, anicteric sclerae ENMT: external ear and nose normal, oropharynx normal Neck: normal visual inspection Respiratory: normal respiratory effort; no respiratory distress Auscultation: + wheezes (intermittent expiratory); no crackles Cardiovascular: RRR, no murmur, no edema Gastrointestinal (Abdomen): normal bowel sounds, soft, nontender, no hepatosplenomegaly Musculoskeletal: no cyanosis or clubbing, extremities motor strength 5/5 Skin: no rashes, warm and dry Neurologic: AAOx3, normal speech. Tangential but redirectable. Bilateral UE, LE, and face without sensory or motor deficits. No tremor. Psychiatric: A+Ox3, euthymic affect Principal Diagnosis Chest painhighly likely musculoskeletal Discharge Exam General: Grossly A&O. NAD. Cooperative. Slightly illogical in conversation, likely from baseline dementia. HEENT: Atraumatic, normocephalic. EOMI Pulm: CTAB. No respiratory distress. Cardiac: RRR, -mrg. No LE edema. Abdominal: Nontender, nondistended, soft. Musculoskeletal: reproducible pain at L chest/ribs on palpation Discharge Data Allergies Allergy/AdvReac Type Severity Reaction Status Date / Time No Known Drug Allergies Allergy Unknown Verified 09/11/20 16:09 Consultations 09/11/20 16:35 ED Decision to Admit Stat Ordered Studies 09/11/20 15:36 CT angio chest PE protocol Stat 09/11/20 15:57 CT abd pelvis IV con only Stat CT head/brain wo con Stat Hospital Course (1) Atypical chest pain: 85-year-old male with a past medical history significant for first-degree AV block, asthma, prediabetes, dementia admitted for chest pain rule out. musculoskeletal chest pain: - reproducible on exam at L chest/ribs. - Description of chest discomfort along the left chest, unclear if it worsens with palpation. - The description of "bubbling" could represent GERD however patient on PPI and Pepcid at home. Breakfast with orange juice and coffee could be recommended against to decrease GERD. - No twisting or injuries to chest that he recalls. - D dimer elevated, CTA Chest without pneumonia, PE, pleural effusion. - serial troponins neg. - echo normal ef 55-60, no RWMA - Incentive spirometer for possible atelectasis. Fatigue/Brain Fog with Hx dementia: - Presents with complaint of intermittent fatigue and sensation of brain fog. - Has a history of mild cognitive impairment with Mini Mental performed in 05/2020 score of 5. - CT Head without acute pathology. CBC without anemia. - Continue memantine 10mg BID. Asthma: - Not hypoxic in ED. - Continue home Advair, Singulair. PRN albuterol. - CTA Chest with foci of scarring/atelectasis noted, possible due to recent COVID 19 infection. - COVID 19 testing this admission negative. BPH: - No urinary complaints at this time. - Continue home tamsulosin and finasteride. Code Status: FULL CODE (2) Asthma: (3) First degree atrioventricular block: (4) Benign prostate hyperplasia: (5) Cognitive impairment: Total Time Total Time Spent Total Time Spent (In Minutes): <30 Discharge Plan Discharge Items Patient Disposition: Home - Self-Care Reason For Visit: CHEST PAIN RULE OUT Discharge Diagnosis: musculoskeletal pain Activity: Per Instructions section Non-emergency contact: Primary Care Provider Call non-emergency contact if: your pain is not controlled and you have a fever Follow-up/Referrals: Gregorio Rinaldi MD [Primary Care Provider] - 09/17/20 2:15 pm (THIS APPOINTMENT WILL BE WITH BIBI FITCH.) Diet: Regular Addtl Attending Provider Instructions: You were admitted to [facility] for discomfort at your upper left chest. The workup did not suggest a problem with your heart. Per the physical exam, your discomfort was likely from a musculoskeletal injury. The ekg was reviewed and the set of troponin enzymes was normal. Your blood counts and electrolytes were checked as well. Follow up with your primary care doctor, Dr. Rinaldi, in 1 week. If you develop any new or worsening symptoms including fever, chills, sweats, chest pain, chest pressure, difficulty breathing, uncontrolled nausea/vomiting, rash, wheezing, passing out or nearly passing out, bleeding, black/bloody bowel movements, or other new or concerning symptoms please call your primary care physician, or call 911 for re-evaluation in the emergency department if you are very concerned. Pending Studies at Discharge: No Stand-Alone Forms: My [facility], Smoking Cessation Medications and DC Order Prescriptions: Continued montelukast 10 mg tablet 10 mg PO QAM Qty: 90 RF: 3 lansoprazole 30 mg capsule,delayed release(DR/EC) 30 mg PO QAM Qty: 90 RF: 3 memantine 10 mg tablet 10 mg PO BID Qty: 180 RF: 1 albuterol sulfate 90 mcg/actuation HFA aerosol inhaler 1 - 2 inh INH Q4H PRN (Reason: shortness of breath or wheezing) Qty: 18 RF: 6 fluticasone propion-salmeterol 500-50 mcg/dose blister with device 1 inh inhalation BID Qty: 1 RF: 5 famotidine 40 mg tablet 40 mg PO DAILY Qty: 90 RF: 3 finasteride 5 mg tablet 5 mg PO DAILY Qty: 90 RF: 3 ascorbic acid (vitamin C) 500 mg tablet 500 mg PO QAM RF: 0 multivitamin tablet 1 tab PO QAM RF: 0 tamsulosin 0.4 mg capsule 0.4 mg PO DAILY Qty: 90 RF: 3 cholecalciferol (vitamin D3) 1,000 unit capsule 1,000 units PO QAM RF: 0 vitamins A,C,D-okif-ijrphj 7,160-113-100 ndta-oy-pkhj tablet 1 tab PO DAILY RF: 0 cyanocobalamin (vitamin B-12) [Vitamin B-12] 1,000 mcg Tablet 1,000 mcg PO DAILY RF: 0 fexofenadine 180 mg Tablet 180 mg PO DAILY PRN (Reason: Allergy Symptoms) RF: 0 wheat dextrin 3 gram/3.5 gram Powder 1 packet PO DAILY RF: 0 Discharge Orders: Discharge Order (Routine); Ordered 09/12/20 Ordered By: Charles Hall Admission Data Admit Date/Time: 09/11/20 17:47 Attending Provider: Eldon Dailey Admit Provider: Ana Paula Sanabria Primary Care Provider: Gregorio Rinaldi Other Providers: Jose Cantu Other Interventions: Discharge Summary Assessment (RN) Last Done: 09/12/20 13:41 Supervising Physician Co-Signing Physician Notes I personally examined the patient and verified all dyer points of history and exam, discussed case, and agree with decision making with Dr Hall. Feeling better and would like to go home. No new complaints. Chart reviewed, stress test from last fall reviewed as well. Vitals noted, in general he is awake and alert pleasant no distress. HEENT normocephalic atraumatic mucous membranes moist. Musculoskeletal shows his left-sided rib cage to be quite tender to palpation roughly in the region of ribs 5 and 6 gentle balanced ligamentous tension was attempted, patient tolerated well. Chest painclinically appears musculoskeletal, cardiac work-up is negative, seems low risk for coronary disease given his negative troponins, and especially given a fairly recent negative stress echo. Chest CT ruled out other worrisome pathology such as PEs etc. Appears stable for home Resident Activity Tracking Resident Involvement: Resident Care Provided Care Provided: Adult Hospital Medicine
--- NOTE | 2020-09-12 19:27 | Billing Data ---
Date of Service September 12, 2020 Coding Level of Care Code 78733 OBS Care - Discharge
--- NOTE | 2020-09-12 23:36 | Electrocardiogram Report ---
Test Reason : Blood Pressure : / mmHG Vent. Rate : 057 BPM Atrial Rate : 057 BPM P-R Int : 212 ms QRS Dur : 092 ms QT Int : 396 ms P-R-T Axes : 048 -30 041 degrees QTc Int : 385 ms Sinus bradycardia with 1st degree A-V block Left axis deviation Abnormal ECG When compared with ECG of 15-JUL-2020 15:35, No significant change was found Confirmed by Ru Aguilera ([id number]) on 09/12/2020 11:36:20 PM Referred By: Gregorio Rinaldi Confirmed By:Ru Aguilera
--- NOTE | 2020-09-12 23:43 | Electrocardiogram Report ---
Test Reason : Blood Pressure : / mmHG Vent. Rate : 046 BPM Atrial Rate : 046 BPM P-R Int : 218 ms QRS Dur : 092 ms QT Int : 444 ms P-R-T Axes : 036 -31 018 degrees QTc Int : 388 ms Sinus bradycardia with 1st degree A-V block Left axis deviation Abnormal ECG When compared with ECG of 11-SEP-2020 13:28, No significant change was found Confirmed by Ru Aguilera ([id number]) on 09/12/2020 11:43:43 PM Referred By: Gregorio Rinaldi Confirmed By:Ru Aguilera
--- NOTE | 2020-09-13 06:42 | Electrocardiogram Report ---
Test Reason : Blood Pressure : / mmHG Vent. Rate : 049 BPM Atrial Rate : 049 BPM P-R Int : 226 ms QRS Dur : 088 ms QT Int : 440 ms P-R-T Axes : 053 -21 045 degrees QTc Int : 397 ms Sinus bradycardia with 1st degree A-V block Otherwise normal ECG When compared with ECG of 11-SEP-2020 15:40, No significant change was found Confirmed by Ru Aguilera ([id number]) on 09/13/2020 6:42:10 AM Referred By: Gregorio Rinaldi Confirmed By:Ru Aguilera
== END 2020-09-12 14:24 | disposition home or self-care (01) ==
LOC: ED 13:18 → 2N 13:18 → SUATTDRO 17:47 → 2N 20:09